=== PATIENT | male | born 1960 | race Caucasian/White ===

== ENCOUNTER 2018-01-16 16:24 | Emergency (ER) | payer MEDICARE, SELFPAY ==
[2018-01-16 16:28] VITALS: BP 137/63; PULSE 93; RESP 16; TEMP 36.9; O2SAT 95; BMI 37.3
--- NOTE | 2018-01-16 16:50 | ED.DCSUM_ITS ---
- ER Visit Summary Date of Service: 01/16/18 Chief Complaint: Acute seizure History of Present Illness: The patient is a 58 M. Prior traumatic brain injury and seizure disorder. Reportedly patient was in a wheelchair today assisted living and had a seizure. He states he feels great currently. He denies any headache, chest pain, shortness of breath abdominal pain. He denies any recent illness. He denies any fever, nausea, vomiting or diarrhea. Physical Examination: Well-appearing middle-age male. Vital signs are stable afebrile. Pulse is 95% room air no signs of positive. H EENT exam is unremarkable. Pupils round reactive light. Neck nontender no meningismus. Lungs clear to auscultation bilaterally. Heart regular rhythm no murmur. Chest nontender. Abdomen soft nontender. Normal bowel sounds no peritoneal signs. Pelvic girdle intact. He is moving all 4 extremities. 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 Back exam is nontender. Neurologically he knows what day it is she is following commands. He is answering questions. He has no focal motor deficits. Test Results: BMP unremarkable. Dilantin level is subtherapeutic at 5.8. Emergency Department Course and Treatment: Patient will be given 500 p.o. Dilantin and continue his normal Dilantin dosages at the assisted living facility were exact. Patient is doing well repeat exam at 1910. Treatment Plan: Charge back to assisted living. Continue current Dilantin dosage. Disposition: discharge Impression: Recurrent breakthrough seizure with a history of seizure disorder History of traumatic brain injury Subtherapeutic Dilantin level This note was generated with HALKAR dictation software. It may contain incorrect words, spelling, and punctuation that were not noted in review of the chart prior to signing ED Disposition - Plan for ED Patient: Chief Complaint: Seizure Referrals: NOT,DEFINED [NON-STAFF] -
--- NOTE | 2018-01-16 17:33 | NURSING ---
NO LW OR POA
[2018-01-16 18:34] LABS: Phenytoin (Dilantin) Level 5.8 mL (10.0-20.0)
[2018-01-16 18:39] LABS: Anion Gap 7 (5-15); BUN 11 mg/dL (7-18); BUN/Creat Ratio 15.3 RATIO (10-20); Calcium,Total 8.7 mg/dL (8.5-10.1); Chloride 113 mmol/L (98-107); Creatinine, Serum 0.72 mg/dL (0.70-1.30); EST Glomerular Filtration Rate 120 mL/min (>60); Est Glom Filt Rate - Afr Amer 145 mL/min (>60); Estimated Creatinine Clearance 129.47 ml/min; Glucose 185 mg/dL (74-106); Sodium Level 145 mmol/L (136-145)
--- NOTE | 2018-01-16 19:12 | ED.DEP ---
ED Disposition - Plan for ED Patient: Disposition: Home or Assisted Living Chief Complaint: Seizure Instructions: ED Seizure Recurrent Referrals: NOT,DEFINED [NON-STAFF] - As Needed Additional Instructions: Continue taking Dilantin as prescribed. Your Dilantin level is low today at 5.8. It needs to be between 10 and 20. We did give you 500 mg of Dilantin here today in the ER. You need to take your normal Dilantin dosages today and continue taking that as prescribed.
[2018-01-16] MEDS: Phenytoin Na 100 MG Capsule 500 MG PO (19:14)
[2018-01-16 19:20] VITALS: BP 149/76; PULSE 79; RESP 18; O2SAT 98
--- NOTE | 2018-01-16 19:21 | ED.RN ---
CALLED [facility] FROM [facility] TO GIVE PT RIDE BACK TO FACILITY
== END 2018-01-16 19:21 | disposition home or self-care (01) ==
PROVIDERS: Emergency Provider Emergency Medicine; Family Provider Nurse Practitioner Adult Health; PCP Nurse Practitioner Adult Health
DX: G40.909 Epilepsy, unspecified, not intractable, without status epilepticus (principal); R79.89 Other specified abnormal findings of blood chemistry; Z87.820 Personal history of traumatic brain injury
CPT/HCPCS: 80048; 80185; 99285; A4216

== ENCOUNTER 2018-01-28 11:16 | Observation (INO) | payer MEDICARE, SELFPAY ==
[2018-01-28] VITALS (7 sets, daily range): BP systolic 144–170; BP diastolic 76–88; PULSE 74–95; RESP 15–20; TEMP 36.7–36.8; O2SAT 94–96; BMI 38.0; BMI 37.0
--- NOTE | 2018-01-28 11:32 | CT_ITS ---
STUDY: CT BRAIN WITHOUT CONTRAST REASON FOR EXAM: Male, 58 years old. Trauma RADIATION DOSAGE (If Supplied By Facility): CTDIvol = ( 60.81 ) mGy, DLP = ( 2179.77 ) mGycm TECHNIQUE: Transaxial CT imaging of the brain was performed without administration of intravenous contrast material. Sagittal and coronal reconstructed images are provided and reviewed. Individualized dose optimization techniques were used for this CT. COMPARISON: None. FINDINGS: There is mild soft tissue swelling in the left frontal and posterior scalp. Postoperative changes of left temporal craniotomy are seen. Right-sided marline holes are present. Normal size ventricles and extra-axial spaces for the patient's age. Normal white matter tracts of the cerebral hemispheres. Normal basal ganglia and thalami. Normal brainstem. Normal cerebellum. There is no intracranial hemorrhage. There are no findings of an acute ischemic infarction. Normal visualized paranasal sinuses. CT/Brain/Head without Contrast IMPRESSION: Scalp contusion. Postoperative changes to the skull. No acute intracranial abnormality. Electronically Signed: Denton Quiroz DO at 13:10 EDT Tel , Service support ,
[2018-01-28 12:03] LABS: Absolute Lymphocyte Count 1.37 X10^3/ul (0.83-4.51); Absolute Neutrophil Count 2.4 X10^3/uL (2.0-7.7); Basophil# 0.02 X10^3/uL; Basophil% 0.5 % (0-1); Eosinophils% 2.3 % (0-5); Hematocrit 40.6 % (40-54); Hemoglobin 13.6 g/dl (13.0-16.5); Lymphocyte # 1.37 X10^3/ul (4.0); Lymphocyte % 32.1 % (19-41); Mean Corp Hgb Conc 33.5 g/gl (32-36); Mean Corpuscular Hgb 31.4 pg (27.0-32.0); Mean Corpuscular Volume 93.8 fL (80-94); Monocyte# 0.32 X10^3/uL; Monocyte% 7.5 % (0-10); Neutrophil # 2.44 X10^3/uL (2.7-7.7); Neutrophil % 57.1 % (47-70); POSITIVE COUNT NO; POSITIVE DIFFERENTIAL NO; POSITIVE MORPHOLOGY NO; Platelet Count 129 K/mm3 (150-450); RBC Distribution Width CV 13.4 % (11.6-14.6); RBC Distribution Width SD 44.4 fl (35.1-43.9); Red Blood Count 4.33 M/mm3 (4.6-6.2); White Blood Count 4.3 K/mm3 (4.4-11.0)
[2018-01-28] MEDS: 0.9% Normal Saline 1,000 ML 150 ML IV (12:11)
[2018-01-28 12:16] LABS: Anion Gap 11 (5-15); BUN 14 mg/dL (7-18); BUN/Creat Ratio 15.8 RATIO (10-20); Calcium,Total 8.8 mg/dL (8.5-10.1); Chloride 106 mmol/L (98-107); Creatinine, Serum 0.88 mg/dL (0.70-1.30); EST Glomerular Filtration Rate 95 mL/min (>60); Est Glom Filt Rate - Afr Amer 114 mL/min (>60); Estimated Creatinine Clearance 105.93 ml/min; Glucose 218 mg/dL (74-106); Potassium 3.8 mmol/L (3.5-5.1); Sodium Level 143 mmol/L (136-145)
[2018-01-28 12:51] LABS: Phenytoin (Dilantin) Level 45.8 mL (10.0-20.0)
--- NOTE | 2018-01-28 13:21 | ED.RN ---
PT DEMANDING TO LEAVE ED, MADE AWARE OF CRITICAL LAB LEVELS, PT VOICES UNDERSTANDING BUT STATES HE WILL LEAVE ANYWAY. STATES I CAN MAKE MY OWN DECISIONS. AND ADDITIONAL STAFF TO PT ROOM. MD DISCUSSED NEED FOR ADMISSION TO HOSPITAL, PT REFUSES. PT AGREES TO STAY UNTIL MD SPEAKS TO HIS PCP IF STAFF WILL ALLOW HIM OUTSIDE TO VAPE. PT PUT IN WHEELCHAIR, ASSISTED OUTSIDE BY MEDIC.
--- NOTE | 2018-01-28 13:37 | ED.DCSUM_ITS ---
- ER Visit Summary Date of Service: 01/28/18 Chief Complaint: Falls History of Present Illness: The patient is a 58 M who was sent in from [facility] assisted-living. Patient has a history of prior CVA with left- sided deficit, TBI, seizures, diabetes, hypertension, high cholesterol, COPD. Per the records patient has been sitting out the sun a lot for last several days. He lost his balance today and fell off a bench striking his right forehead. EMS reported that he had been drinking as well. He has reported had several falls in the last 12 hours. There is documentation of recent increased seizures and his Dilantin dose has been changed, although there is question as to whether it is been increased or decreased. In the room patient has no complaints. He denies loss of consciousness or members of the events of today. Physical Examination: Blood pressure is 170/88, temperature 98.1, heart rate 95 , respiratory rate 18, pulse ox 94% on room air. Patient sitting upright in bed no acute distress. He has a old scar over the scalp from prior brain surgery. He has no evidence of acute head injury. He has no C-spine tenderness. Heart is regular rate and rhythm. On lung sounds are clear. Abdomen is soft nontender. Extremity examination was abrasions to the right anterior knee without bony tenderness. He has sunburn noted to bilateral lower legs with chronic venous skin changes. Neuro exam reveals chronic left-sided weakness. Test Results: CT the head shows postoperative changes. No acute abnormality noted. CBC is significant only for platelet count of 129,000. Chemistry studies reveal glucose of 218. Dilantin level is supratherapeutic at 45.8. EtOH is 5. Emergency Department Course and Treatment: Patient initially insisted on leaving the hospital. On review of records his is listed as medical power of assistant city attorney if he is unable to make decisions, but he is alert and voices understanding. I explained to him that his Dilantin level is too high and this could lead to further seizures, decline, and . He voices understanding and states that he is leaving. When presented with AMA paperwork the patient refuses to sign it stating that he will lose his vouchers and wavers if he goes against the doctor's advice. He reluctantly will agree to be admitted. Patient is discussed with the hospitalist for admission. Treatment Plan: [] Disposition: Admit Impression: Dilantin Toxicity This note was generated with [employer] dictation software. It may contain incorrect words, spelling, and punctuation that were not noted in review of the chart prior to signing ED Disposition - Plan for ED Patient: Disposition: Acute [facility] Chief Complaint: Alt LOC
--- NOTE | 2018-01-28 13:39 | DCINST.ED_ITS ---
ED Disposition - Plan for ED Patient: Disposition: Home or Assisted Living Chief Complaint: Alt LOC Instructions: Phenytoin Referrals: Karma Barnes, EXTRUSION TECHNICIAN-C [Primary Care Provider] - Additional Instructions: Your Dilantin level is too high. This can lead to further seizures and . I have recommended hospitalization and you have refused. This was discussed with the nurse practioner caring for you.
--- NOTE | 2018-01-28 14:10 | ED.RN ---
PT SITTING OUTSIDE ED DOOR IN WHEELCHAIR WITH STAFF MEMBER. PT ADVISED AGAIN HE SHOULD BE ADMITTED TO HOSPITAL UNTIL DILANTIN LEVEL AT SAFE RANGE, ADVISED HIS PCP WANTED HIM TO STAY WELL. PT STATES HE JUST WANTS TO VAPE AND DOES NOT WANT TO COME INSIDE. PT ADVISED BY MD THAT HE COULD SIGN OUT AGAINST MEDICAL ADVICE, ADVISED OF DANGERS OF DOING SO. PT STATES HE WILL LOOSE HIS WAIVER IF HE DOESN'T FOLLOW MEDICAL ADVICE. AGREES TO COME INSIDE, RETURN TO BED.
--- NOTE | 2018-01-28 14:23 | EKG12_ITS ---
Test Reason : Blood Pressure : / mmHG Vent. Rate : 075 BPM Atrial Rate : 075 BPM P-R Int : 140 ms QRS Dur : 098 ms QT Int : 392 ms P-R-T Axes : 053 044 051 degrees QTc Int : 437 ms Normal sinus rhythm Normal ECG Confirmed by MORENA NELSON ([id number]), television news video editor RICHARD BARDALES ([id number]) on 02/08/2018 6:34:10 PM Referred By: LINSEY Confirmed By:MORENA NELSON
--- NOTE | 2018-01-28 14:35 | PCM.HP.STD ---
Problem List (1) Chronic back pain Status: Chronic (2) Hyperlipidemia Status: Chronic (3) Cognitive impairment Status: Chronic (4) Depression Status: Chronic (5) Seizure disorder Status: Chronic (6) Benign prostatic hyperplasia Status: Chronic (7) Traumatic brain injury Status: Chronic (8) COPD (chronic obstructive pulmonary disease) Status: Chronic (9) Hypertension Status: Chronic History of Present Illness Date of Admission: 01/28/18 Chief Complaint: Lethargy, sleepiness. The patient is a 58 year old M with multiple medical comorbidities as mentioned above was brought to the emergency department from assisted living because of lethargy and sleepiness. The patient has history of traumatic brain injury that was complicated by cognitive impairment as well as seizure disorder and is not able to provide detailed history. At this time, he mentioned that he feels fine and he wants to go home. He denies any complaints. Reportedly, patient had a history of seizure disorder and dose of Dilantin was increased recently because of recurrent seizure. Denied headache, blurred vision or slurred speech. He denied chest pain or shortness of breath. Denied abdominal pain, nausea vomiting. He has a history of traumatic brain injury status post brain surgery, complicated by cognitive impairment and seizure disorder. He history of seizure disorder secondary to traumatic brain injury and he has been on 3 different anticonvulsant medications. Recently, dose of Dilantin was increased because of recurrent seizure. He has a history of COPD and he has been on bronchodilators, never been on oxygen at home. He has a history of hypertension which seemed to be under control with Norvasc, lisinopril. He history of chronic back pain with placement of pain pump that has been not working for long time, currently on oxycodone for pain control. In the emergency department, his blood pressure slightly elevated, other vital signs were stable. He was alert and oriented ?3. His routine blood work is remarkable for very minimal leukopenia, mild thrombocytopenia and blood sugar of 218. There is no previous blood work to compare. His Dilantin level is 45.8. Blood alcohol level is 5. EKG revealed normal sinus rhythm, normal [place] interval, normal QRS and normal QTC, no evidence of cardiac arrhythmias or acute ischemic changes. CT scan brain revealed scalp contusion, no acute hemorrhage or infarction, postoperative changes. He is being admitted for observation for Dilantin toxicity. Past Medical History Past Medical History (Chronic Problems): Chronic Problems (Last Updated 01/26/18 @ 13:32 by Greer Barillas) Chronic back pain (Chronic) Hyperlipidemia (Chronic) Cognitive impairment (Chronic) Depression (Chronic) Seizure disorder (Chronic) Benign prostatic hyperplasia (Chronic) Traumatic brain injury (Chronic) COPD (chronic obstructive pulmonary disease) (Chronic) Hypertension (Chronic) Medical History: Medical History (Last Updated 01/26/18 @ 13:32 by Greer Barillas) BPH (benign prostatic hyperplasia) N40.0 COPD with acute exacerbation J44.1 PVD (peripheral vascular disease) I73.9 Back pain M54.9 COPD (chronic obstructive pulmonary disease) J44.9 Essential (primary) hypertension I10 HLD (hyperlipidemia) E78.5 Major depressive disorder F32.9 Memory impairment R41.3 Other seizures G40.89 Radiculopathy M54.10 Type 2 diabetes mellitus E11.9 Stroke I63.9 x4 TBI (traumatic brain injury) S06.9X9A left sided weakness Allergies No Known Allergies Allergy (Verified 01/28/18 11:23) Home Medications: Ambulatory Orders Medication Instructions Recorded amlodipine 5 mg tablet 5 mg PO DAILY 01/26/18 aripiprazole 15 mg tablet 15 mg PO DAILY 01/26/18 aspirin 81 mg tablet,delayed 81 mg PO DAILY 01/26/18 release atorvastatin 40 mg tablet 40 mg PO QHS 01/26/18 cholecalciferol (vitamin D3) 50,000 unit PO QWEEK 01/26/18 50,000 unit capsule docusate sodium 100 mg capsule 100 mg PO BID 01/26/18 fluticasone 250 mcg-salmeterol 50 1 inh INHALATION BID 01/26/18 mcg/dose blistr powdr for inhalation gabapentin 800 mg tablet 800 mg PO TID tab 01/26/18 ipratropium-albuterol 0.5 mg-3 3 ml INHALATION Q6H PRN 01/26/18 mg(2.5 mg base)/3 mL nebulization soln levetiracetam 500 mg tablet 2,000 mg PO HS tab 01/26/18 levetiracetam 750 mg tablet 1,500 mg PO QAM tab 01/26/18 lisinopril 10 mg tablet 10 mg PO QDAY 01/26/18 loratadine 10 mg tablet 10 mg PO QDAY 01/26/18 omeprazole 20 mg capsule,delayed 20 mg PO QDAY 01/26/18 release oxycodone 15 mg tablet 15 mg PO BID tab 01/26/18 oxycodone 5 mg capsule 5 mg PO Q6H PRN PRN cap 01/26/18 phenytoin sodium extended 100 mg 300 mg PO TID 01/26/18 capsule polyethylene glycol 3350 17 gram 17 g PO QDAY 01/26/18 oral powder packet tamsulosin 0.4 mg capsule 0.4 mg PO QDAY 01/26/18 topiramate 200 mg tablet 200 mg PO BID 01/26/18 trazodone 50 mg tablet 50 mg PO QDAY 01/26/18 venlafaxine ER 75 mg 75 mg PO BID cap 01/26/18 capsule,extended release 24 hr verapamil ER 120 mg 24 hr 120 mg PO QDAY 01/26/18 capsule,extended release zolpidem 10 mg tablet 10 mg PO QHS PRN 01/26/18 Melatonin/Pyridoxine HCl (B6) 3 mg PO QHS 01/28/18 [Melatonin 3 mg Tablet] Surgical History: Surgical History (Last Updated 01/26/18 @ 13:32 by Greer Barillas) H/O brain surgery Z98.890 History of appendectomy Z90.49 pain pump placement Surgical History: appendectomy, - - Brain surgery. Psychiatric History: Depression Lives: - - Assisted-living. Smoking Status: Former smoker Tobacco Use: Cigarettes, Vapor Alcohol: None Drugs: None - *Family History Maternal Family History: Family History (Last Updated 01/26/18 @ 13:32 by Greer Barillas) Mother Diabetes Hypertension History Items: No pertinent history Paternal Family History: Family History (Last Updated 01/26/18 @ 13:32 by Greer Barillas) Mother Diabetes Hypertension History Items: No pertinent history Review of Systems Constitutional: Denies: Anorexia, Chills, Fever, Weakness Eyes: Denies: Blurred vision, Double vision, Drainage, Redness HEENT: Denies: Difficulty Hearing, Ear Pain, Eye Pain, Nasal Congestion, Sore Throat Cardiovascular: Denies: Chest Pain, Chest Pressure, Chest Tightness, Heaviness, Palpitations, Syncope Respiratory: Denies: Cough, Pleuritic Pain, Shortness of Breath, Sputum production Gastrointestinal: Denies: Abdominal Pain, Constipation, Diarrhea, Nausea, Vomiting Genitourinary: Denies: Dysuria, Frequency, Hematuria Musculoskeletal: Reports: Back Pain. Denies: Arm Pain, Foot Pain Skin: Denies: Dryness, Rash Neurological: Denies: Balance problems, Double vision, Change in Speech, Slurred speech, Confusion, Headaches, Incoordination, Numbness Psychiatric: Reports: Depression. Denies: Anxiety Endocrine: Denies: Change in Body Habitus, Polydipsia VTE Information - Inpt Only VTE Present on Admission: No VTE Mechan Device Prophylaxis: None VTE Pharm Prophylaxis ordered?: Yes - Physical Exam General: Alert, Oriented x3, Cooperative, No apparent distress HEENT: PERRLA, EOMI Oral: Moist Mucosa, No Gingival or Mucosal Lesions/ Ulcerations Neck: Supple, No JVD, Negative Carotid Bruits, Trachea Midline, Thyroid Normal Size and Texture Lungs: Clear to auscultation, No rhonchi, No wheeze, No rales Cardiovascular: Regular rate, Regular Rhythm, Normal S1, Normal S2, No murmurs, PMI Normal Abdomen: Bowel Sounds Present, Soft, Non Tender, Non-Distended, No Hepato-splenomegaly, Obese Extremities: No clubbing, No cyanosis, Edema - Nonpitting edema, stasis dermatitis, scaling. Skin: No rashes, No breakdown Lymphatic: No Cervical, Supraclavicular, or Inguinal Adenopathy Neurological: Cranial nerves II-XII grossly intact, Neuro grossly intact Psych/Mental Status: Normal Affect, Appropriate, Alert and oriented to time, place, person, mood and affect Vital Signs Temp Pulse Resp BP Pulse Ox 98.1 F 78 19 H 144/76 H 95 01/28/18 11:17 01/28/18 14:17 01/28/18 14:17 01/28/18 14:13 01/28/18 14:17 Oxygen Delivery Method Room Air Laboratory Tests 01/28/18 01/28/18 01/28/18 Range/Units 11:55 11:55 11:55 WBC (4.4-11.0) K/mm3 RBC (4.6-6.2) M/mm3 Hgb (13.0-16.5) g/dl Hct (40-54) % MCV (80-94) fL MCH (27.0-32.0) pg MCHC (32-36) g/gl RDW (11.6-14.6) % RDW Differential (35.1-43.9) fl Plt Count (150-450) K/mm3 MPV (6.2-12.0) fl Immature Gran % (Auto) (0.0-0.9) % Neut % (Auto) (47-70) % Lymph % (Auto) (19-41) % [place] % (Auto) (0-10) % Eos % (Auto) (0-5) % Baso % (Auto) (0-1) % Absolute Neuts (auto) (2.0-7.7) X10^3/uL Absolute Lymphs (auto) (0.83-4.51) X10^3/ul Total Counted Sodium 143 (136-145) mmol/L Potassium 3.8 (3.5-5.1) mmol/L Chloride 106 (98-107) mmol/L Carbon Dioxide 26.0 (21.0-32.0) mmol/L Anion Gap 11 (5-15) BUN 14 (7-18) mg/dL Creatinine 0.88 (0.70-1.30) mg/dL Estim Creat Clear Calc 105.93 ml/min Est GFR (MDRD) Af Amer 114 (>60) mL/min Est GFR (MDRD) Non-Af 95 (>60) mL/min BUN/Creatinine Ratio 15.8 (10-20) RATIO Glucose 218 H (74-106) mg/dL Calcium 8.8 (8.5-10.1) mg/dL Phenytoin 45.8 H* (10.0-20.0) mL Ethyl Alcohol 5.0 mg/dL 01/28/18 Range/Units 11:55 WBC 4.3 L (4.4-11.0) K/mm3 RBC 4.33 L (4.6-6.2) M/mm3 Hgb 13.6 (13.0-16.5) g/dl Hct 40.6 (40-54) % MCV 93.8 (80-94) fL MCH 31.4 (27.0-32.0) pg MCHC 33.5 (32-36) g/gl RDW 13.4 (11.6-14.6) % RDW Differential 44.4 H (35.1-43.9) fl Plt Count 129 L (150-450) K/mm3 MPV 10.0 (6.2-12.0) fl Immature Gran % (Auto) 0.500 (0.0-0.9) % Neut % (Auto) 57.1 (47-70) % Lymph % (Auto) 32.1 (19-41) % [place] % (Auto) 7.5 (0-10) % Eos % (Auto) 2.3 (0-5) % Baso % (Auto) 0.5 (0-1) % Absolute Neuts (auto) 2.4 (2.0-7.7) X10^3/uL Absolute Lymphs (auto) 1.37 (0.83-4.51) X10^3/ul Total Counted Not Reportable Sodium (136-145) mmol/L Potassium (3.5-5.1) mmol/L Chloride (98-107) mmol/L Carbon Dioxide (21.0-32.0) mmol/L Anion Gap (5-15) BUN (7-18) mg/dL Creatinine (0.70-1.30) mg/dL Estim Creat Clear Calc ml/min Est GFR (MDRD) Af Amer (>60) mL/min Est GFR (MDRD) Non-Af (>60) mL/min BUN/Creatinine Ratio (10-20) RATIO Glucose (74-106) mg/dL Calcium (8.5-10.1) mg/dL Phenytoin (10.0-20.0) mL Ethyl Alcohol mg/dL Clinical Impression(s) from Imaging Studies Brain CT 01/28/18 11:32 IMPRESSION: Scalp contusion. Postoperative changes to the skull. No acute intracranial abnormality. Electronically Signed: Denton Quiroz DO at 13:10 EDT Tel , Service support , Assessment/Plan This is a 58 year-old male patient presented to the medicine because of lethargy and sleepiness, found to have highly elevated Dilantin level consistent with Dilantin toxicity. #1 Dilantin toxicity: Patient has been on Dilantin for seizure disorder, dose increased recently because of recurrent seizure. This can brain without acute hemorrhage or infarction, revealed scalp contusion. Dilantin level is more than 45. EKG revealed normal sinus rhythm, normal intervals, no evidence of cardiac arrhythmias. Blood pressure slightly elevated, other vital signs were stable. Plan: Admit to PCU for observation, cardiac monitoring, IV fluids, repeat Dilantin level tomorrow morning, LFT, repeat CBC and CMP tomorrow morning, hold Dilantin, seizure precautions, PT OT evaluation and treatment. #2 hyperglycemia: Patient mentioned that he was told he does have diabetes but he is not taking any medication for. His glucose is 218. Plan: Accu-Cheks, sliding scale, check hemoglobin A1c. #3 COPD: Clinically stable, maintaining pulse ox on room air. Plan for DuoNeb every 6 hours, albuterol as needed, continue Advair. #4 hypertension: Blood pressure slightly elevated, continue home medications. #5 seizure disorder: Continue Keppra and topiramate, hold Dilantin as above, repeat Dilantin level tomorrow morning. #6 traumatic brain injury/cognitive impairment: CT scan brain with scalp contusion, no acute findings. #7 benign prostatic hypertrophy: Continue Flomax. #8 depression: Continue trazodone and venlafaxine. #9 chronic back pain: Continue oxycodone twice daily and as needed. #10 DVT prophylaxis: Subcu Lovenox. This note was generated with [employer] dictation software. It may contain incorrect words, spelling, and punctuation that were not noted in checking the note before signing. Code Visit OBSV E&M: [id number] Initial observation care L3
[2018-01-28 16:00] LABS: AST(SGOT) 19 U/L (15-37); Alanine Aminotransfer ALT/SGPT 30 U/L (16-61); Alkaline Phosphatase 145 U/L (45-117); Bilirubin, Direct 0.05 mg/dL (0.00-0.30); Globulin 3.7 g/dL (2.2-4.2); Protein, Total 7.7 g/dL (6.4-8.2)
--- NOTE | 2018-01-28 16:11 | CHAPLAIN ---
Type of Pastoral Visit _x__ Initial Visit ___ Follow-up Visit ___ On-call Visit ___ General Patient Visit ___ Spiritual Assessment ___ Family Conference ___ Bereavement ___ Rapid Response ___ Code Blue ___ Other (describe below) Pastoral Care Referral From _x__ Patient ___ Family ___ Nurse ___ Physician ___ Pancake Professional ___ Capacity Planning Engineer _x__ Other (describe below) Sacrament/Intervention _x__ Active listening ___ Anointing ___ Latter Day ___ Bereavement ___ Communion ___ Komal exploration ___ ___ Life review _x__ Prayer ___ Reconciliation ___ Sacrament of Sick _x__ Supportive presence ___ Wedding ___ Other (describe below) Pastoral Comments walked into room as lab is attempting to draw blood from patient and also found his director counseling bureau from [place] is in room; director counseling bureau describes hearing loss issues of patient and that his mental status is not his normal; pt is pleasant to this acid wash operator as I assure him that we all want him to feel better; when asked patient about the reason for being admitted he did not immediately answer; director counseling bureau began the answer and pt followed story about falling; pt talks about wanting drink and or food; told both about how to order from menu; pt says to director counseling bureau that he will go outside to vape later; director counseling bureau discusses with pt the need to stay in bed and not go outside; director counseling bureau says she will bring pt gum, snacks, etc so he can focus on that instead of vape; offer of further support to patient today or tomorrow; patient welcomed a prayer and said Amen; director counseling bureau said thank you
[2018-01-28 16:16] LABS: Bedside Glucose 155 mg/dL (70-110)
[2018-01-28] MEDS: 0.9% Normal Saline 1,000 ML 75 ML IV (16:29)
[2018-01-28 20:33] LABS: Hemoglobin A1c 7.7 % (4.2-6.3)
--- NOTE | 2018-01-28 23:30 | NURSING ---
Pt refusing to wear telemetry, taking off, not allowing RN to place back on.
[2018-01-28] MEDS: Gabapentin 800 MG Tablet PO (23:50)
[2018-01-28] MEDS: Docusate Sodium 100 MG Capsule PO (23:50)
[2018-01-28] MEDS: levETIRAcetam 1,000 MG Tablet 2000 MG PO (23:50)
[2018-01-28] MEDS: Venlafaxine HCl 75 MG Tablet PO (23:51)
[2018-01-28] MEDS: Atorvastatin Calcium 40 MG Tablet PO (23:51)
[2018-01-28] MEDS: Topiramate 200 MG Tablet PO (23:51)
[2018-01-28] MEDS: traZODone 50 MG Tablet PO (23:51)
[2018-01-28] MEDS: Zolpidem Tartrate 5 MG Tablet 10 MG PO (23:52)
[2018-01-28] MEDS: MELATONIN 3 MG TABLET PO (23:52)
[2018-01-29] VITALS: BP 142/70; PULSE 75; RESP 16; TEMP 37; O2SAT 95
[2018-01-29 00:01] LABS: Bedside Glucose 142 mg/dL (70-110)
[2018-01-29 06:34] VITALS: BP 141/79; PULSE 73; RESP 16; TEMP 36.9; O2SAT 95
[2018-01-29] MEDS: Enoxaparin 40 MG/0.4 ML Syringe SC (06:41)
[2018-01-29] MEDS: Gabapentin 800 MG Tablet PO ×2 (06:42→13:32)
[2018-01-29 06:55] LABS: Bedside Glucose 134 mg/dL (70-110)
[2018-01-29 06:57] LABS: Absolute Lymphocyte Count 1.82 X10^3/ul (0.83-4.51); Absolute Neutrophil Count 2.7 X10^3/uL (2.0-7.7); Basophil# 0.02 X10^3/uL; Basophil% 0.4 % (0-1); Eosinophil# 0.12 X10^3/uL; Eosinophils% 2.4 % (0-5); Hemoglobin 12.8 g/dl (13.0-16.5); Lymphocyte # 1.82 X10^3/ul (4.0); Lymphocyte % 36.7 % (19-41); Mean Corp Hgb Conc 32.8 g/gl (32-36); Mean Corpuscular Hgb 30.7 pg (27.0-32.0); Mean Corpuscular Volume 93.5 fL (80-94); Mean Platelet Vol. 9.9 fl (6.2-12.0); Monocyte# 0.33 X10^3/uL; Monocyte% 6.7 % (0-10); Neutrophil # 2.67 X10^3/uL (2.7-7.7); Neutrophil % 53.8 % (47-70); Platelet Count 126 K/mm3 (150-450); RBC Distribution Width CV 13.5 % (11.6-14.6); RBC Distribution Width SD 45.9 fl (35.1-43.9); Red Blood Count 4.17 M/mm3 (4.6-6.2)
[2018-01-29 06:59] LABS: POSITIVE COUNT NO; POSITIVE DIFFERENTIAL NO; POSITIVE MORPHOLOGY NO
[2018-01-29 07:32] LABS: ALB/GLOB Ratio 1.1 RATIO (0.9-2.4); AST(SGOT) 15 U/L (15-37); Alanine Aminotransfer ALT/SGPT 26 U/L (16-61); Albumin, Serum 3.6 g/dL (3.2-5.0); Alkaline Phosphatase 119 U/L (45-117); Anion Gap 8 (5-15); BUN 11 mg/dL (7-18); BUN/Creat Ratio 15.6 RATIO (10-20); Calcium,Total 8.1 mg/dL (8.5-10.1); Chloride 110 mmol/L (98-107); Creatinine, Serum 0.71 mg/dL (0.70-1.30); EST Glomerular Filtration Rate 123 mL/min (>60); Est Glom Filt Rate - Afr Amer 148 mL/min (>60); Estimated Creatinine Clearance 131.29 ml/min; Globulin 3.3 g/dL (2.2-4.2); Glucose 144 mg/dL (74-106); Potassium 3.8 mmol/L (3.5-5.1); Protein, Total 6.9 g/dL (6.4-8.2); Sodium Level 144 mmol/L (136-145)
[2018-01-29] MEDS: Aspirin E.C. 81 MG Tablet PO (08:37)
[2018-01-29] MEDS: oxyCODONE 5 MG Tablet PO (08:37)
[2018-01-29 10:30] VITALS: BP 163/70; PULSE 86; RESP 14; TEMP 36.5; O2SAT 98
[2018-01-29] MEDS: Docusate Sodium 100 MG Capsule PO (10:33)
[2018-01-29] MEDS: Pantoprazole Sodium 20 MG Tablet PO (10:33)
[2018-01-29] MEDS: Tamsulosin HCl 0.4 MG Capsule PO (10:33)
[2018-01-29] MEDS: Venlafaxine HCl 75 MG Tablet PO (10:33)
[2018-01-29] MEDS: levETIRAcetam 750 MG Tablet 1500 MG PO (10:34)
[2018-01-29] MEDS: Lisinopril 10 MG Tablet PO (10:34)
[2018-01-29] MEDS: Topiramate 200 MG Tablet PO (10:34)
[2018-01-29] MEDS: Verapamil SR 240 MG Tablet 120 MG PO (10:34)
[2018-01-29] MEDS: amLODIPine 5 MG Tablet PO (10:34)
[2018-01-29] MEDS: ARIPiprazole 10 MG Tablet 15 MG PO (10:35)
[2018-01-29] MEDS: Loratadine 10 MG Tablet PO (10:35)
[2018-01-29 11:20] LABS: Bedside Glucose 170 mg/dL (70-110)
--- NOTE | 2018-01-29 11:34 | CASEMGMT ---
[facility]
--- NOTE | 2018-01-29 12:08 | CASEMGMT ---
LAURA received a call from RN at [facility] and as long as patient can get to the bathroom on his own he can return. LAURA obtained weekend fax and phone numbers for orders. (phone: [phone] and fax: [phone]) She said patient is normally his own decision maker. He has a that lives in [place]. He will need transportation back to [facility] at d/c. LAURA will put ambulette form on chart as well as green sheet with instructions. Plan: Return to [facility] ADEBAYO GARCIA MSW
--- NOTE | 2018-01-29 13:47 | CHAPLAIN ---
Type of Pastoral Visit ___ Initial Visit _x__ Follow-up Visit ___ On-call Visit ___ General Patient Visit ___ Spiritual Assessment ___ Family Conference ___ Bereavement ___ Rapid Response ___ Code Blue ___ Other (describe below) Pastoral Care Referral From ___ Patient ___ Family _x__ Nurse ___ Physician ___ Critical Care Educator ___ Shipping Packer ___ Other (describe below) Sacrament/Intervention ___ Active listening ___ Anointing ___ Presybeterian ___ Bereavement ___ Communion ___ Komal exploration ___ ___ Life review ___ Prayer ___ Reconciliation ___ Sacrament of Sick _x__ Supportive presence ___ Wedding _x__ Other (describe below) Pastoral Comments RN requested this washer assembler to offer patient opportunity to talk with the purpose of 'getting his mind off of leaving and instead agreeing to wait for test results'; pt was met yesterday at admission and had altered mental status; pt was sitting on bedside with meal tray at end of bed; suggested patient try to eat lunch and he refused; attempted conversation and pt repeated 3 times that I do not want to talk, I want to leave, I do not want to talk to you; I encouraged pt to stay for a few more hours before he left and then I left the room; I waited for a few minutes outside of door; pt then unhooked his IV pump from wall and started to walk out of room; I stood at doorway and requested help from RN; the historic site administrator came to talk patient back into his room; pt complied but then in a few minutes attempted to leave again; at this point CORE MANAGER called security who came to talk with patient
--- NOTE | 2018-01-29 13:49 | NURSING ---
spoke with Hope- she will come bean picker machine operator patient when ready
[2018-01-29 14:48] LABS: Phenytoin (Dilantin) Level 39.4 mL (10.0-20.0)
[2018-01-29 14:49] VITALS: BP 158/70; PULSE 81; RESP 15; TEMP 36.6; O2SAT 100
--- NOTE | 2018-01-29 15:10 | PCM.DC ---
You will use the following diet at home:: Regular Discharge Activity: Return to Normal Activity Instructions: Phenytoin Allergies/Adverse Reactions: Allergies No Known Allergies Allergy (Verified 01/28/18 11:23) Medications to take at Discharge amlodipine 5 mg tablet 5 mg PO DAILY 01/26/18 aripiprazole 15 mg tablet 15 mg PO DAILY 01/26/18 aspirin 81 mg tablet,delayed release 81 mg PO DAILY 01/26/18 atorvastatin 40 mg tablet 40 mg PO QHS 01/26/18 cholecalciferol (vitamin D3) 50,000 unit capsule 50,000 unit PO QWEEK 01/26/18 docusate sodium 100 mg capsule 100 mg PO BID 01/26/18 fluticasone 250 mcg-salmeterol 50 mcg/dose blistr powdr for inhalation 1 inh INHALATION BID 01/26/18 gabapentin 800 mg tablet 800 mg PO TID tab 01/26/18 ipratropium-albuterol 0.5 mg-3 mg(2.5 mg base)/3 mL nebulization soln 3 ml INHALATION Q6H PRN 01/26/18 levetiracetam 500 mg tablet 2,000 mg PO HS tab 01/26/18 levetiracetam 750 mg tablet 1,500 mg PO DAILY tab 01/26/18 lisinopril 10 mg tablet 10 mg PO DAILY 01/26/18 loratadine 10 mg tablet 10 mg PO DAILY 01/26/18 omeprazole 20 mg capsule,delayed release 20 mg PO DAILY 01/26/18 oxycodone 15 mg tablet 15 mg PO BID tab 01/26/18 oxycodone 5 mg capsule 5 mg PO Q6H PRN PRN cap 01/26/18 tamsulosin 0.4 mg capsule 0.4 mg PO DAILY 01/26/18 topiramate 200 mg tablet 200 mg PO BID 01/26/18 trazodone 50 mg tablet 50 mg PO QHS 01/26/18 venlafaxine ER 75 mg capsule,extended release 24 hr 75 mg PO BID cap 01/26/18 verapamil ER 120 mg 24 hr capsule,extended release 120 mg PO QDAY 01/26/18 zolpidem 10 mg tablet 10 mg PO QHS PRN 01/26/18 Melatonin/Pyridoxine HCl (B6) [Melatonin 3 mg Tablet] 3 mg PO QHS 01/28/18 Primary Care Physician: Karma Barnes, PETROL TANKER DRIVER-C [Primary Care Provider] - In 1 Week Proposed Discharge Date: 01/29/18
--- NOTE | 2018-01-29 15:12 | PCM.DC.SUM ---
Discharge Date and Diagnosis Date of Admission: 01/28/18 Date of Discharge: 01/29/18 - Secondary Discharge Diagnosis Chronic Problems (Last Updated 01/26/18 @ 13:32 by Greer Barillas) Chronic back pain (Chronic) Hyperlipidemia (Chronic) Cognitive impairment (Chronic) Depression (Chronic) Seizure disorder (Chronic) Benign prostatic hyperplasia (Chronic) Traumatic brain injury (Chronic) COPD (chronic obstructive pulmonary disease) (Chronic) Hypertension (Chronic) Hospital Course and Treatment Summary of Care Provided: This is a 58-year-old male with history of TBI, CVA with left-sided deficit, seizure disorder diabetes 2, hypertension who presented to the emergency room through the EMS due to increasing falls in the last 12 hours prior to his admission. Workup in the emergency room revealed an elevated Dilantin level of 45.8, blood have any acute any EKG changes , he was admitted to the hospital for monitoring. Placed on intravenous fluids with 0.9 normal saline and we did hold his Dilantin. Dilantin level dropped to 42.0, he insisted on being discharged, after explaining that he could not be discharged the patient became increasingly agitated and aggressive towards nursing staff as he does not want to stay in the hospital. He even attempted to leave the hospital and they had to call the security. Repeat Dilantin level is 39.4. He shows no signs of toxicity and we will therefore discharge him home, he will continue to hold the Dilantin and follow-up with the primary care doctor next week who will ultimately restart on a decrease Dilantin dose when his levels are in the therapeutic range. T Discharge Diet: No Restrictions Discharge Activity: Return to Normal Activity Home Medications: Medications to take at Discharge amlodipine 5 mg tablet 5 mg PO DAILY 01/26/18 aripiprazole 15 mg tablet 15 mg PO DAILY 01/26/18 aspirin 81 mg tablet,delayed release 81 mg PO DAILY 01/26/18 atorvastatin 40 mg tablet 40 mg PO QHS 01/26/18 cholecalciferol (vitamin D3) 50,000 unit capsule 50,000 unit PO QWEEK 01/26/18 docusate sodium 100 mg capsule 100 mg PO BID 01/26/18 fluticasone 250 mcg-salmeterol 50 mcg/dose blistr powdr for inhalation 1 inh INHALATION BID 01/26/18 gabapentin 800 mg tablet 800 mg PO TID tab 01/26/18 ipratropium-albuterol 0.5 mg-3 mg(2.5 mg base)/3 mL nebulization soln 3 ml INHALATION Q6H PRN 01/26/18 levetiracetam 500 mg tablet 2,000 mg PO HS tab 01/26/18 levetiracetam 750 mg tablet 1,500 mg PO DAILY tab 01/26/18 lisinopril 10 mg tablet 10 mg PO DAILY 01/26/18 loratadine 10 mg tablet 10 mg PO DAILY 01/26/18 omeprazole 20 mg capsule,delayed release 20 mg PO DAILY 01/26/18 oxycodone 15 mg tablet 15 mg PO BID tab 01/26/18 oxycodone 5 mg capsule 5 mg PO Q6H PRN PRN cap 01/26/18 tamsulosin 0.4 mg capsule 0.4 mg PO DAILY 01/26/18 topiramate 200 mg tablet 200 mg PO BID 01/26/18 trazodone 50 mg tablet 50 mg PO QHS 01/26/18 venlafaxine ER 75 mg capsule,extended release 24 hr 75 mg PO BID cap 01/26/18 verapamil ER 120 mg 24 hr capsule,extended release 120 mg PO QDAY 01/26/18 zolpidem 10 mg tablet 10 mg PO QHS PRN 01/26/18 Melatonin/Pyridoxine HCl (B6) [Melatonin 3 mg Tablet] 3 mg PO QHS 01/28/18 Primary Care Physician: Karma Barnes NP-C [Primary Care Provider] - In 1 Week Patient Instructions: Phenytoin Disposition: Home Patient Condition:: Good Medical Necessity - Tobacco Use Smoking Status: Former smoker Tobacco Use: Cigarettes, Vapor Meaningful Use Info Meaningful Use Diagnoses (Choose all that apply): None applicable Code Visit OBSV E&M: 75432 Observation care discharge
--- NOTE | 2018-01-29 15:48 | NURSING ---
called report to Ofelia Virk LPN at [facility] she is the recieving nurse taking care of patient. Reviewed all meds and stop dilantin get lab on thursday and f/u pcp on dosing . Stressed need for patient to use walker for safety.
--- NOTE | 2018-01-29 16:09 | NURSING ---
Hope called to let staff know patient ride was on their way. Patient anxious was up at nursing station wanting to leave nurse able to get patient back to room. Strong direction given to patient reviewed instructions with patient also as nurse did with administrator pesticide at [facility] . Person just arrived reviewed instructions with administrator pesticide patients vape returned patient left via wc
--- NOTE | 2018-01-29 16:19 | CASEMGMT ---
Patient was d/c back to [facility]. Patient's bedside RN spoke with Rufina, Deputy Director Of Public Works at [facility] and she will supplier specialist patient. Amy GARCIA MSW
== END 2018-01-29 16:20 | disposition home or self-care (01) ==
LOC: ED 13:38 → PCU 14:18
PROVIDERS: Admitting Provider Hospitalist; Emergency Provider Emergency Medicine; Family Provider Nurse Practitioner Adult Health; PCP Nurse Practitioner Adult Health; Visit Provider Internal Medicine
DX: T42.0X5A Adverse effect of hydantoin derivatives, initial encounter (principal); Y92.89 Other specified places as the place of occurrence of the external cause; I69.354 Hemiplegia and hemiparesis following cerebral infarction affecting left non-dominant side; G40.909 Epilepsy, unspecified, not intractable, without status epilepticus; I10 Essential (primary) hypertension; E78.00 Pure hypercholesterolemia, unspecified; J44.9 Chronic obstructive pulmonary disease, unspecified; Z91.81 History of falling; S80.211A Abrasion, right knee, initial encounter; W18.39XA Other fall on same level, initial encounter; G89.29 Other chronic pain; M54.9 Dorsalgia, unspecified; G31.84 Mild cognitive impairment of uncertain or unknown etiology; F32.9 Major depressive disorder, single episode, unspecified; N40.0 Benign prostatic hyperplasia without lower urinary tract symptoms; Z87.820 Personal history of traumatic brain injury; I73.9 Peripheral vascular disease, unspecified; R41.3 Other amnesia; M54.10 Radiculopathy, site unspecified; E11.51 Type 2 diabetes mellitus with diabetic peripheral angiopathy without gangrene; E11.65 Type 2 diabetes mellitus with hyperglycemia; Z79.899 Other long term (current) drug therapy; Z79.82 Long term (current) use of aspirin; Z87.891 Personal history of nicotine dependence
CPT/HCPCS: 36415; 70450; 80048; 80053; 80076; 80185; 80320; 82962; 83036; 85025; 93005; 96360; 96361; 97162; 97166; 99218; 99285; J7030; A4216; G0378; G0480

== ENCOUNTER 2018-01-30 15:29 | Observation (INO) | payer MEDICARE, SELFPAY ==
[2018-01-30] VITALS (7 sets, daily range): BP systolic 162–193; BP diastolic 71–96; PULSE 86–94; RESP 14–20; TEMP 36.7–36.8; O2SAT 97–99; BMI 36.4; BMI 36.7; BMI 36.8
--- NOTE | 2018-01-30 15:47 | EKG12_ITS ---
Test Reason : ILLNESS Blood Pressure : / mmHG Vent. Rate : 086 BPM Atrial Rate : 086 BPM P-R Int : 128 ms QRS Dur : 094 ms QT Int : 384 ms P-R-T Axes : -11 028 035 degrees QTc Int : 459 ms Normal sinus rhythm Normal ECG Confirmed by ELLIS LOCKHART, LORIE ([id number]), editor in chief newspaper RICHARD BARDALES ([id number]) on 02/10/2018 6:45:11 PM Referred By: JOCELYN Confirmed By:LORIE CORRAL MD
--- NOTE | 2018-01-30 15:47 | CT_ITS ---
STUDY: CT BRAIN WITHOUT CONTRAST REASON FOR EXAM: Male, 58 years old. Alteration of awareness RADIATION DOSAGE (If Supplied By Facility): CTDIvol = ( 44.99 ) mGy, DLP = ( 829.85 ) mGycm TECHNIQUE: Transaxial CT imaging of the brain was performed without administration of intravenous contrast material. Individualized dose optimization techniques were used for this CT. COMPARISON: January 28, 2018 FINDINGS: A scalp hematoma is again seen in the left parietal region. Surgical changes are again seen in the skull bilaterally. Normal size ventricles and extra-axial spaces for the patient's age. The white matter tracts are unremarkable. The basal ganglia and thalami are unremarkable. No abnormalities are seen in the brainstem. The cerebellum is unremarkable. There is no intracranial hemorrhage. There are no findings of acute ischemia. The visualized sinuses are unremarkable. CT/Brain/Head without Contrast IMPRESSION: No acute intracranial abnormalities or changes. Electronically Signed: Maria Esther Rodrigez MD at 17:15 EDT Tel Direct: [phone], Service support ,
--- NOTE | 2018-01-30 16:09 | ED.RN ---
NO OLD EKG
[2018-01-30 16:31] LABS: Absolute Lymphocyte Count 1.49 X10^3/ul (0.83-4.51); Absolute Neutrophil Count 2.1 X10^3/uL (2.0-7.7); Basophil# 0.02 X10^3/uL; Basophil% 0.5 % (0-1); Eosinophil# 0.07 X10^3/uL; Eosinophils% 1.7 % (0-5); Hematocrit 42.2 % (40-54); Hemoglobin 13.9 g/dl (13.0-16.5); Lymphocyte # 1.49 X10^3/ul (4.0); Lymphocyte % 37.2 % (19-41); Mean Corp Hgb Conc 32.9 g/gl (32-36); Mean Corpuscular Hgb 30.5 pg (27.0-32.0); Mean Corpuscular Volume 92.7 fL (80-94); Mean Platelet Vol. 10.1 fl (6.2-12.0); Monocyte# 0.34 X10^3/uL; Monocyte% 8.5 % (0-10); Neutrophil # 2.09 X10^3/uL (2.7-7.7); Neutrophil % 52.1 % (47-70); Platelet Count 134 K/mm3 (150-450); RBC Distribution Width CV 13.5 % (11.6-14.6); RBC Distribution Width SD 45.4 fl (35.1-43.9); Red Blood Count 4.55 M/mm3 (4.6-6.2)
[2018-01-30 16:33] LABS: POSITIVE COUNT NO; POSITIVE DIFFERENTIAL NO; POSITIVE MORPHOLOGY NO
--- NOTE | 2018-01-30 16:35 | RAD_ITS ---
STUDY: X-RAY CHEST REASON FOR EXAM: Male, 58 years old. Alteration of awareness TECHNIQUE: A single frontal view of the chest was obtained. COMPARISON: None. FINDINGS: The lungs are underaerated. There are no focal airspace opacities. There is no demonstrated pleural abnormality. The cardiac silhouette is normal in size. The mediastinum and hilar regions are unremarkable. Normal visualized pulmonary arteries. Normal visualized aortic arch and descending thoracic aorta. There are diffuse degenerative changes of the visualized spine. There are degenerative changes in both shoulders. There is no demonstrated abnormality of the visualized upper abdomen. RAD/Chest 1 View (Portable) IMPRESSION: No acute cardiopulmonary abnormalities. Electronically Signed: Maria Esther Rodrigez MD at 17:16 EDT Tel Direct: [phone], Service support ,
[2018-01-30 16:48] LABS: AST(SGOT) 29 U/L (15-37); Alanine Aminotransfer ALT/SGPT 32 U/L (16-61); Albumin, Serum 4.1 g/dL (3.2-5.0); Alkaline Phosphatase 160 U/L (45-117); Anion Gap 7 (5-15); BUN 8 mg/dL (7-18); BUN/Creat Ratio 8.3 RATIO (10-20); Calcium,Total 8.3 mg/dL (8.5-10.1); Chloride 110 mmol/L (98-107); Creatinine, Serum 0.96 mg/dL (0.70-1.30); EST Glomerular Filtration Rate 86 mL/min (>60); Est Glom Filt Rate - Afr Amer 104 mL/min (>60); Glucose 131 mg/dL (74-106); Potassium 3.6 mmol/L (3.5-5.1); Protein, Total 8.1 g/dL (6.4-8.2); Sodium Level 143 mmol/L (136-145)
[2018-01-30 17:11] LABS: Phenytoin (Dilantin) Level 39.6 mL (10.0-20.0)
[2018-01-30 17:23] LABS: Bacteria 0 SEEN /hpf (None Seen); Mucous, Urine 0 SEEN /hpf (<or=2+); Red Blood Cells-Urine 0 SEEN /hpf (0-5); White Blood Cells 0 SEEN /hpf (0-5)
[2018-01-30 17:25] LABS: Color, Urine Yellow (Yellow); Glucose, Dipstick 100 mg/dl (Normal); Ketone-Dipstick Negative (Negative); Leukocyte Esterase-Dipstick Negative /ul (Negative); Nitrite-Dipstick Negative (Negative); Occult Blood-Urine Negative /ul (Negative); Protein-Dipstick Negative (Negative); Urine Bilirubin Dipstick Negative (Negative); Urine Clarity Sl. Cloudy (Clear); Urine Urobilinogen Normal (Normal)
[2018-01-30 17:26] LABS: Allen Test POS; Base Excess -4 mmol/L (-2 to +2); Bicarbonate 20.2 mmol/L (22-26); Blood Gas Specimen Type ART; O2 Delivery Device Room Air; PO2 84 mmHG (75-100); SITE R Radial; SO2 97 % (95-99); Time Given 1715; Total Carbon Dioxide 21 mmol/L; pCO2 30.6 mmHg (35-45); pH 7.43 (7.35-7.45)
[2018-01-30 17:34] LABS: Squamous Epithelial Cells - UA 0-5 SEEN /hpf (0-5)
--- NOTE | 2018-01-30 17:47 | ED.RN ---
[facility] NURSE CELL [phone]
--- NOTE | 2018-01-30 18:20 | ED.DCSUM_ITS ---
- ER Visit Summary Date of Service: 01/30/18 Chief Complaint: Double vision and altered mental status History of Present Illness: The patient is a 58 M who presents with double vision. Initially the patient was quite somnolent and difficult to arouse. He is slowly became more alert as he spoke to me. He was recently admitted for Dilantin toxicity but left AGAINST MEDICAL ADVICE yesterday. He states I was on the sidewalk leaned over in my wheelchair sleeping. States that his double vision currently is resolved but it lasted several hours most of the morning. He also complains of chronic neck and back pain. He does have a history of traumatic brain injury and a seizure disorder. Physical Examination: Afebrile vitals are stable he is hypertensive with a blood pressure 177/81 Moist mucous membranes Heart regular rate and rhythm Lungs are clear Abdomen soft Initially somnolent and somewhat difficult to arouse however as he spoke to me he became much more alert he is oriented to person place and time with a GCS of 15 He has no focal or lateralizing neurological deficits Normal affect Test Results: EKG shows normal sinus rhythm at rate of 86. Chest x-ray shows no acute process. CT the head shows no acute process. Labs are notable for Dilantin level of 39.6. ABG normal. Emergency Department Course and Treatment: She was initially difficult to arouse and confused. His mental status did improve. On reevaluation he is alert and oriented ?3 and answers all questions appropriately. He does not want to stay. He was advised that he would need to sign out AGAINST MEDICAL ADVICE. He refused to sign out AGAINST MEDICAL ADVICE stating that the assisted living would not allow him to return if he signed out AMA. I discussed with him that if he is unwilling to sign out AGAINST MEDICAL ADVICE he should be admitted. Patient asked if there is any way he just be discharged. I explained my concerns that I do not believe discharge would be appropriate at this point and that feel he should at least have observation given his altered mental status and continue Dilantin toxicity. Eventually the patient was in agreement. Treatment Plan: [] Disposition: Admit Impression: Transient confusion Transient double vision Dilantin toxicity This note was generated with [employer] dictation software. It may contain incorrect words, spelling, and punctuation that were not noted in review of the chart prior to signing ED Disposition - Plan for ED Patient: Chief Complaint: Alt LOC Referrals: Karma Barnes, BINDING CEMENTER FRENCH CORD-C [Primary Care Provider] -
--- NOTE | 2018-01-30 20:33 | HP.PCM_ITS ---
Problem List (1) Double vision Status: Acute (2) Dilantin toxicity Status: Acute (3) Chronic back pain Status: Chronic (4) Hyperlipidemia Status: Chronic (5) Cognitive impairment Status: Chronic (6) Depression Status: Chronic (7) Seizure disorder Status: Chronic (8) COPD (chronic obstructive pulmonary disease) Status: Chronic History of Present Illness Date of Admission: 01/30/18 Chief Complaint: Double vision The patient is a 58 year old male w/ h/o chronic back pain, lipidemia, depression, seizure, BPH, COPD, and HTN admitted for double vision. Pt unable to provide history. He kept saying that he is fine and is alert and argumentative. His nurse was concern that he was difficult to arouse and alerted medical staff. He said that he was a little dizzy and needed to sleep. After he woke up, he wanted to smoke his vape in his home. He requested that I discharge him. He refused to sign AMA. He was argumentative and no further useful history was obtained. Past Medical History Past Medical History (Chronic Problems): Chronic Problems (Last Updated 01/26/18 @ 13:32 by Greer Barillas) Chronic back pain (Chronic) Hyperlipidemia (Chronic) Cognitive impairment (Chronic) Depression (Chronic) Seizure disorder (Chronic) Benign prostatic hyperplasia (Chronic) Traumatic brain injury (Chronic) COPD (chronic obstructive pulmonary disease) (Chronic) Hypertension (Chronic) Medical History: Medical History (Last Updated 01/26/18 @ 13:32 by Greer Barillas) BPH (benign prostatic hyperplasia) N40.0 COPD with acute exacerbation J44.1 PVD (peripheral vascular disease) I73.9 Back pain M54.9 COPD (chronic obstructive pulmonary disease) J44.9 Essential (primary) hypertension I10 HLD (hyperlipidemia) E78.5 Major depressive disorder F32.9 Memory impairment R41.3 Other seizures G40.89 Radiculopathy M54.10 Type 2 diabetes mellitus E11.9 Stroke I63.9 x4 TBI (traumatic brain injury) S06.9X9A left sided weakness Allergies No Known Allergies Allergy (Verified 01/30/18 15:33) Home Medications: Ambulatory Orders Medication Instructions Recorded amlodipine 5 mg tablet 5 mg PO DAILY 01/26/18 aripiprazole 15 mg tablet 15 mg PO DAILY 01/26/18 aspirin 81 mg tablet,delayed 81 mg PO DAILY 01/26/18 release atorvastatin 40 mg tablet 40 mg PO QHS 01/26/18 cholecalciferol (vitamin D3) 50,000 unit PO MO 01/26/18 50,000 unit capsule docusate sodium 100 mg capsule 100 mg PO BID 01/26/18 fluticasone 250 mcg-salmeterol 50 1 inh INHALATION BID 01/26/18 mcg/dose blistr powdr for inhalation gabapentin 800 mg tablet 800 mg PO TID tab 01/26/18 ipratropium-albuterol 0.5 mg-3 3 ml INHALATION Q6H PRN 01/26/18 mg(2.5 mg base)/3 mL nebulization soln levetiracetam 500 mg tablet 2,000 mg PO HS tab 01/26/18 levetiracetam 750 mg tablet 1,500 mg PO DAILY tab 01/26/18 lisinopril 10 mg tablet 10 mg PO DAILY 01/26/18 loratadine 10 mg tablet 10 mg PO QHS 01/26/18 omeprazole 20 mg capsule,delayed 20 mg PO DAILY 01/26/18 release oxycodone 5 mg capsule 5 mg PO Q6H PRN PRN cap 01/26/18 tamsulosin 0.4 mg capsule 0.4 mg PO DAILY 01/26/18 topiramate 200 mg tablet 200 mg PO BID 01/26/18 trazodone 50 mg tablet 50 mg PO QHS 01/26/18 venlafaxine ER 75 mg 75 mg PO BID cap 01/26/18 capsule,extended release 24 hr verapamil ER 120 mg 24 hr 120 mg PO QDAY 01/26/18 capsule,extended release zolpidem 10 mg tablet 10 mg PO QHS PRN 01/26/18 Melatonin/Pyridoxine HCl (B6) 3 mg PO QHS 01/28/18 [Melatonin 3 mg Tablet] Acetaminophen [Tylenol Extra 1,000 mg PO TID PRN PRN 01/30/18 Strength] Surgical History: Surgical History (Last Updated 01/26/18 @ 13:32 by Greer Barillas) H/O brain surgery Z98.890 History of appendectomy Z90.49 pain pump placement Surgical History: appendectomy, - - Brain surgery. Psychiatric History: Depression Smoking Status: Former smoker - *Family History Maternal Family History: Family History (Last Updated 01/26/18 @ 13:32 by Greer Barillas) Mother Diabetes Hypertension History Items: No pertinent history Paternal Family History: Family History (Last Updated 01/26/18 @ 13:32 by Greer Barillas) Mother Diabetes Hypertension History Items: No pertinent history Review of Systems Constitutional: Denies: Chills, Fever, Weight Change HEENT: Denies: Head Aches, Sinus Congestion, Sinus Drainage Cardiovascular: Denies: Chest Pain, Palpitations Respiratory: Denies: Cough, Shortness of breath at rest, Sputum production Gastrointestinal: Denies: Abdominal Pain, Nausea, Vomiting Genitourinary: Denies: Dysuria Musculoskeletal: Denies: Joint Pain, Joint Tenderness Skin: Denies: Rash, Wounds Neurological: Denies: Numbness, Tingling, Focal weakness Psychiatric: Denies: Anxiety, Depression, Homicidal Ideations, Suicidal Ideations Hematologic/ Lymphatic: Denies: Easy Bruising, Easy Bleeding VTE Information - Inpt Only VTE Present on Admission: No VTE Mechan Device Prophylaxis: SCD's VTE Pharm Prophylaxis ordered?: Yes Patient Problems: Active and Suspected Problems (Last Updated 01/26/18 @ 13:32 by Greer Barillas) Double vision (Acute) Dilantin toxicity (Acute) - Physical Exam General: Alert, Oriented x3, Cooperative HEENT: Atraumatic, PERRLA, EOMI, Normocephalic Neck: Supple, No JVD, Negative Carotid Bruits Lungs: Clear to auscultation, Normal air movement Cardiovascular: Regular rate, No murmurs Abdomen: Bowel Sounds Present, Soft, Non Tender Extremities: No edema, Capillary Refill Less than 3 Seconds Skin: No rashes, No breakdown Musculoskeletal: No Tenderness to Palpation of Joints or Extremities Neurological: Cranial nerves II-XII grossly intact Psych/Mental Status: Normal Affect, Appropriate Vital Signs Temp Pulse Resp BP Pulse Ox 98.1 F 93 20 H 176/96 H 99 01/30/18 15:29 01/30/18 19:34 01/30/18 19:34 01/30/18 19:34 01/30/18 19:34 Oxygen Delivery Method Room Air Weight: 125.3 kg Body Mass Index (BMI) 36.4 Laboratory Tests Past 24 Hrs 01/30/18 01/30/18 01/30/18 16:25 16:25 16:25 WBC 4.0 L RBC 4.55 L Hgb 13.9 Hct 42.2 MCV 92.7 MCH 30.5 MCHC 32.9 RDW 13.5 RDW Differential 45.4 H Plt Count 134 L MPV 10.1 Immature Gran % (Auto) 0.000 Neut % (Auto) 52.1 Lymph % (Auto) 37.2 Cooper % (Auto) 8.5 Eos % (Auto) 1.7 Baso % (Auto) 0.5 Absolute Neuts (auto) 2.1 Absolute Lymphs (auto) 1.49 Total Counted Not Reportable Specimen Type Sample Site pH Bicarbonate Actual POC Total CO2 Base Excess O2 Saturation ABG pCO2 ABG pO2 Luisito Test O2 Delivery Device Blood Gas Notified Whom Blood Gas Notified Time Sodium 143 Potassium 3.6 Chloride 110 H Carbon Dioxide 26.0 Anion Gap 7 BUN 8 Creatinine 0.96 Estim Creat Clear Calc 97.10 Est GFR (MDRD) Af Amer 104 Est GFR (MDRD) Non-Af 86 BUN/Creatinine Ratio 8.3 L Glucose 131 H Calcium 8.3 L Total Bilirubin 0.20 AST 29 ALT 32 Alkaline Phosphatase 160 H Total Protein 8.1 Albumin 4.1 Globulin 4.0 Albumin/Globulin Ratio 1.0 Urine Color Urine Clarity Urine pH Ur Specific [place] Urine Protein Urine Glucose (UA) Urine Ketones Urine Occult Blood Urine Nitrite Urine Bilirubin Urine Urobilinogen Ur Leukocyte Esterase Urine RBC Urine WBC Ur Squamous Epith Cells Urine Bacteria Urine Mucus Phenytoin 39.6 H* 01/30/18 01/30/18 17:15 17:20 WBC RBC Hgb Hct MCV MCH MCHC RDW RDW Differential Plt Count MPV Immature Gran % (Auto) Neut % (Auto) Lymph % (Auto) Cooper % (Auto) Eos % (Auto) Baso % (Auto) Absolute Neuts (auto) Absolute Lymphs (auto) Total Counted Specimen Type ART Sample Site R Radial pH 7.43 Bicarbonate Actual 20.2 L POC Total CO2 21 Base Excess -4 L O2 Saturation 97 ABG pCO2 30.6 L ABG pO2 84 Luisito Test POS O2 Delivery Device Room Air Blood Gas Notified Whom ED Blood Gas Notified Time 1715 Sodium Potassium Chloride Carbon Dioxide Anion Gap BUN Creatinine Estim Creat Clear Calc Est GFR (MDRD) Af Amer Est GFR (MDRD) Non-Af BUN/Creatinine Ratio Glucose Calcium Total Bilirubin AST ALT Alkaline Phosphatase Total Protein Albumin Globulin Albumin/Globulin Ratio Urine Color Yellow Urine Clarity Sl. Cloudy Urine pH 7.0 Ur Specific [place] 1.010 Urine Protein Negative Urine Glucose (UA) 100 H Urine Ketones Negative Urine Occult Blood Negative Urine Nitrite Negative Urine Bilirubin Negative Urine Urobilinogen Normal Ur Leukocyte Esterase Negative Urine RBC 0 SEEN Urine WBC 0 SEEN Ur Squamous Epith Cells 0-5 SEEN Urine Bacteria 0 SEEN Urine Mucus 0 SEEN Phenytoin Assessment/Plan All Active Problems (Last Updated 01/26/18 @ 13:32 by Greer Barillas) Double vision (Acute) Dilantin toxicity (Acute) 58 year old male w/ h/o chronic back pain, lipidemia, depression, seizure, BPH, COPD, and HTN admitted for double vision. 1) Double vision: Probably secondary to meds. Will r/o TIA. CT brain negative. Will get MRI, carotid US and ECHO. Resume home meds. C/w ASA and statin. 2) Dilantin toxicity: Level 39 No e/o depression, intentional self-injury, coingestants, and use of illicit drugs. Mild to moderate toxicity. Appears asymptomatic. No nystagmus, ataxia, slurred speech, nausea, and vomiting. Will repeat level in AM. 3) H/o seizure: Resume home meds. 4) Prophylaxis: SCD
--- NOTE | 2018-01-30 21:15 | NURSING ---
Pt new admission to floor. Pt adamant that he does not want to stay overnight and wants the md to come see him to discharge him. Pt not wanting to leave [facility] as he stated that he would get kicked out of his housing and lose his benefits if he leaves [facility]. Pt not willing to stay in bed or the chair in his room, pt standing at the doorway of his room. Pt refuses to sit down for safety reasons, pt states he's fine and nothing will happen to him, he's perfectly healthy. Security was present as he was doing his nightly rounding and pt refused to listen to security as well, pt remained standing at doorway, staff present at doorway with pt. Pt agreed to go into room for assessment and being served a meal tray, but as soon as pt done with meal and rn completed with him he was back to doorway waiting for md to see pt. Md did come to floor and spoke with pt. Md is was not willing to discharge pt and would not allow him to leave unless it was ama. Pt notably upset and refuses to go into room and wants to be discharged. Security and resource officer present to floor and pt still standing in doorway/hallway. Sitter being made available for pt safety concerns and pt did go back to room as rn had evening meds to give him. Pt aware and understood that md was not going to discharge him and if he did want to leave tonight it would be [facility]. Pt did rest in bed after hs meds given, sitter present at bedside for safety measures.
[2018-01-30 21:48] LABS: Thyroid Stim Hormone (TSH) 1.99 uIU/mL (0.358-3.74)
[2018-01-30] MEDS: 0.9% Normal Saline 1,000 ML 100 ML IV (22:59)
[2018-01-30] MEDS: Atorvastatin Calcium 40 MG Tablet PO (23:06)
[2018-01-30] MEDS: levETIRAcetam 1,000 MG Tablet 2000 MG PO (23:06)
[2018-01-30] MEDS: Venlafaxine HCl 75 MG Tablet PO (23:06)
[2018-01-30] MEDS: MELATONIN 3 MG TABLET PO (23:07)
[2018-01-30] MEDS: Heparin Injection (Vial) 5,000 UNIT/ML VIAL 5000 UNIT SC (23:07)
[2018-01-30] MEDS: Topiramate 200 MG Tablet PO (23:07)
[2018-01-30] MEDS: traZODone 50 MG Tablet PO (23:08)
[2018-01-31 01:00] VITALS: BP 171/93; PULSE 85; RESP 20; TEMP 36.7; O2SAT 98
[2018-01-31 02:00] VITALS: BP 171/93; PULSE 85; RESP 20; TEMP 36.7; O2SAT 98
[2018-01-31 02:25] VITALS: BMI 36.7
[2018-01-31 02:36] LABS: Amphetamine Urine VISTA NEGATIVE (<1000 ng/mL); Barbiturate Urine VISTA NEGATIVE (< 200 ng/mL); Benzodiazepine Urine VISTA NEGATIVE (< 200 ng/mL); Cocaine Urine VISTA NEGATIVE (< 300 ng/mL); Ecstacy Urine VISTA NEGATIVE (< 500 ng/mL); Methadone Urine VISTA NEGATIVE (< 300 ng/mL); PCP Urine VISTA NEGATIVE (< 25 ng/mL); THC Urine VISTA NEGATIVE (< 50 ng/mL); Vista UDS pH Range 6
--- NOTE | 2018-01-31 03:30 | NURSING ---
Pt. has been combative all night. Insisting at this time to talk to Dr. Vang again in order to have him cancel all tests in the morning. Pt. had been given choice to leave AMA or stay the night and have tests done. Pt. agreed to spend night but insists on not having any tests but states he will Lose his home and his waiver if he signs out AMA or refuses tests. Pt. feels Dr. Vang is just ordering tests to make money. Dr. Vang came to room to see pt. with this nurse in room. Spa Therapist , Janna, also came into room longterm through conversation. Pt. continues to argue with Dr. Vang and getting himself all worked up. Pt. taking off heart monitor and trying to leave unit. Dr. Vang, nursing supervisor electronics assembly, charge nurse, Araceli, and this nurse have all explained to pt. he needs to stay for his safety and have tests done to ensure he is safe to go home. Pt. instructed to wait until morning to further discuss with day shift hospitalist. Pt. finally came back into room and will have sitter to monitor him.
--- NOTE | 2018-01-31 04:23 | NURSING ---
This RN called to room 129 at 0340 due to pt threatening to leave. Pt found standing in room and dressed in street clothes. Dr Vang at bedside. Pt refusing any further medical testing. Attempt to encourage pt to stay and have needed testing performed. Pt continues to refuse. After Dr. Vang left bedside pt walked out of room and to elevators. Pt stated he has lost everything and no longer needs to live. He stated he is leaving and will end it. I will take a knife and stab myself as many times as it takes. I will take gun and shoot myself. I want that to find me laying on the side of the road when he leaves here tomorrow morning. Encouraged pt to return to room and get some sleep. I would rather end it in the dark then in the day time. Pt returned to room [address] Vang notified of above conversation. [place] slip obtained. Pt currently sitting at bedside. Refusing to put hospital gown on or heart monitor back on.
--- NOTE | 2018-01-31 04:24 | NURSING ---
Pt. has been threatening to leave and kill himself. States he wants to stab himself and that Things are already ruined. This nurse instructed pt. to try to lie down and rest and talk to doctor in morning. This nurse told pt. we are doing all we can to help him, keep him safe and comfortable. He was also instructed that if he leaves by walking out of hospital, the [place] police will be outside waiting for him and his situation will get much worse. At this time, pt. is in room sitting on bed, being monitored by charge nurse, Araceli. Nursing Clipman, Janna, has talked extensively with patient trying to calm him down and reason with him. Will continue to monitor.
[2018-01-31 05:00] VITALS: BP 158/83; PULSE 89; RESP 20; TEMP 37.3; O2SAT 99
--- NOTE | 2018-01-31 05:00 | NURSING ---
Sitter present at bedside 1:1 with pt. Pt got up to bathroom by self. Sitter alerted this rn and pt closed bathroom door, this rn opened door and saw pt with shirt off and wrapping it on the towel hook. When this rn asked pt what he was doing he stated just clowning around. Pt wanting this rn to close bathroom door and leave pt alone, this rn told pt that he wasn't allowed to be left alone. Pt did go back to bed briefly but got out of bed to bathroom again, door left open as pt up to bathroom and in 1:1 supervision of sitter. After pt done using bathroom pt back to bed. Remains in 1:1 supervision with office machine installer mariaater.
[2018-01-31] MEDS: LORazepam 1 MG Tablet PO (06:00)
[2018-01-31] MEDS: Nystatin Powder 15gm Bottle 1 APPLIC TOPICAL (06:00)
[2018-01-31] MEDS: Heparin Injection (Vial) 5,000 UNIT/ML VIAL 5000 UNIT SC (06:02)
[2018-01-31 07:25] LABS: Anion Gap 9 (5-15); BUN 10 mg/dL (7-18); BUN/Creat Ratio 14.5 RATIO (10-20); Calcium,Total 8.3 mg/dL (8.5-10.1); Chloride 112 mmol/L (98-107); Cholesterol 162 mg/dL (200); Creatinine, Serum 0.69 mg/dL (0.70-1.30); EST Glomerular Filtration Rate 127 mL/min (>60); Est Glom Filt Rate - Afr Amer 153 mL/min (>60); Glucose 172 mg/dL (74-106); High Density Lipoprotein 55 mg/dL; Potassium 3.5 mmol/L (3.5-5.1); Sodium Level 142 mmol/L (136-145); Triglycerides 157 mg/dL; Very Low Density Lipoprotein 31 mg/dL (5-40)
[2018-01-31 07:44] VITALS: BP 160/82; PULSE 89; RESP 18; TEMP 36.5; O2SAT 100
[2018-01-31 08:32] LABS: Hematocrit 45.6 % (40-54); Hemoglobin 15.1 g/dl (13.0-16.5); Mean Corp Hgb Conc 33.1 g/gl (32-36); Mean Corpuscular Hgb 30.8 pg (27.0-32.0); Mean Corpuscular Volume 93.1 fL (80-94); Mean Platelet Vol. 11.3 fl (6.2-12.0); Platelet Count 109 K/mm3 (150-450); RBC Distribution Width CV 13.5 % (11.6-14.6); RBC Distribution Width SD 45.7 fl (35.1-43.9); Scan Indicated on CBC? Y/N NO
[2018-01-31 08:44] VITALS: BMI 36.7
[2018-01-31] MEDS: Pantoprazole Sodium 20 MG Tablet PO (08:57)
[2018-01-31] MEDS: amLODIPine 5 MG Tablet PO (08:57)
[2018-01-31] MEDS: Topiramate 200 MG Tablet PO (08:57)
[2018-01-31] MEDS: Lisinopril 10 MG Tablet PO (08:57)
[2018-01-31] MEDS: Venlafaxine HCl 75 MG Tablet PO (08:58)
[2018-01-31] MEDS: Docusate Sodium 100 MG Capsule PO (08:58)
[2018-01-31] MEDS: levETIRAcetam 750 MG Tablet 1500 MG PO (08:58)
[2018-01-31] MEDS: Tamsulosin HCl 0.4 MG Capsule PO (08:58)
[2018-01-31] MEDS: ARIPiprazole 5 MG Tablet 15 MG PO (08:59)
[2018-01-31] MEDS: Aspirin E.C. 81 MG Tablet PO (08:59)
[2018-01-31] MEDS: Verapamil SR 240 MG Tablet 120 MG PO (08:59)
[2018-01-31 09:33] LABS: Phenytoin (Dilantin) Level 38.4 mL (10.0-20.0)
[2018-01-31] MEDS: QUEtiapine 25 MG Tablet 50 MG PO (10:28)
[2018-01-31 11:46] VITALS: BP 136/76; PULSE 110; RESP 16; TEMP 36.8; O2SAT 96
--- NOTE | 2018-01-31 11:46 | NURSING ---
Pt given d/c instructions and reviewed. Pt verbalizes understanding. [facility] Unable to reach staff at this time. Will continue to attempt contact.
--- NOTE | 2018-01-31 11:46 | PCM.DC.SUM ---
Discharge Date and Diagnosis - Problem List Patient Problems: Active and Suspected Problems (Last Updated 01/26/18 @ 13:32 by Greer Barillas) Double vision (Acute) Dilantin toxicity (Acute) Date of Admission: 01/30/18 Date of Discharge: 01/31/18 - Primary Discharge Diagnosis Active and Suspected Problems (Last Updated 01/26/18 @ 13:32 by Greer Barillas) Double vision (Acute) Dilantin toxicity (Acute) - Secondary Discharge Diagnosis Chronic Problems (Last Updated 01/26/18 @ 13:32 by Greer Barillas) Chronic back pain (Chronic) Hyperlipidemia (Chronic) Cognitive impairment (Chronic) Depression (Chronic) Seizure disorder (Chronic) Benign prostatic hyperplasia (Chronic) Traumatic brain injury (Chronic) COPD (chronic obstructive pulmonary disease) (Chronic) Hypertension (Chronic) Hospital Course and Treatment Imaging Results: Clinical Impression(s) from Imaging Studies Brain CT 01/30/18 15:47 IMPRESSION: No acute intracranial abnormalities or changes. Electronically Signed: Maria Esther Rodrigez MD at 17:15 EDT Tel Direct: [phone], Service support , Chest X-Ray 01/30/18 16:35 IMPRESSION: No acute cardiopulmonary abnormalities. Electronically Signed: Maria Esther Rodrigez MD at 17:16 EDT Tel Direct: [phone], Service support , Consultations 01/31/18 09:41 Consult: Mental Health/Crisis Routine Reason for consult?: suicidal ideation aggressive Date Notified:: 01/31/18 Time notified:: 09:41 Operations: None Procedures: None Summary of Care Provided: The patient is a 58 year old M presents with complaints of diplopia. Pt denied complaints. Concern for suicidal ideation and pt expressed during frustration about not being able to vape. Seen by psych liason who cleared him for discharge. Patient's dilantin level is still elevated but improving. Patient can be discharged to home. Follow up dilantin level in 1 week. Was on 300 TID of dilantin. I would recommend restarting him at 100mg TID once level less than 20. Physical exam. Normal gait. Unkempt. Afebrile. [place]. [] Discharge Diet: Low fat/ Low Cholesterol Discharge Activity: Return to Normal Activity Call your doctor if you observe: Fever of 101 or Higher, - - worsening confusion. Home Medications: Medications to take at Discharge amlodipine 5 mg tablet 5 mg PO DAILY 01/26/18 aripiprazole 15 mg tablet 15 mg PO DAILY 01/26/18 aspirin 81 mg tablet,delayed release 81 mg PO DAILY 01/26/18 atorvastatin 40 mg tablet 40 mg PO QHS 01/26/18 cholecalciferol (vitamin D3) 50,000 unit capsule 50,000 unit PO MO 01/26/18 docusate sodium 100 mg capsule 100 mg PO BID 01/26/18 fluticasone 250 mcg-salmeterol 50 mcg/dose blistr powdr for inhalation 1 inh INHALATION BID 01/26/18 gabapentin 800 mg tablet 800 mg PO TID tab 01/26/18 ipratropium-albuterol 0.5 mg-3 mg(2.5 mg base)/3 mL nebulization soln 3 ml INHALATION Q6H PRN 01/26/18 levetiracetam 500 mg tablet 2,000 mg PO HS tab 01/26/18 levetiracetam 750 mg tablet 1,500 mg PO DAILY tab 01/26/18 lisinopril 10 mg tablet 10 mg PO DAILY 01/26/18 loratadine 10 mg tablet 10 mg PO QHS 01/26/18 omeprazole 20 mg capsule,delayed release 20 mg PO DAILY 01/26/18 oxycodone 5 mg capsule 5 mg PO Q6H PRN PRN cap 01/26/18 tamsulosin 0.4 mg capsule 0.4 mg PO DAILY 01/26/18 topiramate 200 mg tablet 200 mg PO BID 01/26/18 trazodone 50 mg tablet 50 mg PO QHS 01/26/18 venlafaxine ER 75 mg capsule,extended release 24 hr 75 mg PO BID cap 01/26/18 verapamil ER 120 mg 24 hr capsule,extended release 120 mg PO QDAY 01/26/18 zolpidem 10 mg tablet 10 mg PO QHS PRN 01/26/18 Melatonin/Pyridoxine HCl (B6) [Melatonin 3 mg Tablet] 3 mg PO QHS 01/28/18 Acetaminophen [Tylenol] 1,000 mg PO TID PRN PRN 01/30/18 Nystatin Powder [Mycostatin Powder] 1 applic TOPICAL TID bottle 01/31/18 Primary Care Physician: Karma Barnes NP-C [Primary Care Provider] - Please Follow Up With: anisha When: 2 weeks Disposition: Home Minutes spent on discharge:: 40 Patient Condition:: Fair Medical Necessity - Tobacco Use Smoking Status: Current every day smoker Tobacco Use: Vapor Meaningful Use Info Meaningful Use Diagnoses (Choose all that apply): None applicable Code Visit Inpatient E&M: 00745 Disch Hosp
--- NOTE | 2018-01-31 11:53 | DS.PCM_ITS ---
Discharge Date and Diagnosis - Problem List Patient Problems: Active and Suspected Problems (Last Updated 01/26/18 @ 13:32 by Greer Barillas) Double vision (Acute) Dilantin toxicity (Acute) Date of Admission: 01/30/18 Date of Discharge: 01/31/18 - Primary Discharge Diagnosis Active and Suspected Problems (Last Updated 01/26/18 @ 13:32 by Greer Barillas) Double vision (Acute) Dilantin toxicity (Acute) - Secondary Discharge Diagnosis Chronic Problems (Last Updated 01/26/18 @ 13:32 by Greer Barillas) Chronic back pain (Chronic) Hyperlipidemia (Chronic) Cognitive impairment (Chronic) Depression (Chronic) Seizure disorder (Chronic) Benign prostatic hyperplasia (Chronic) Traumatic brain injury (Chronic) COPD (chronic obstructive pulmonary disease) (Chronic) Hypertension (Chronic) Hospital Course and Treatment Imaging Results: Clinical Impression(s) from Imaging Studies Brain CT 01/30/18 15:47 IMPRESSION: No acute intracranial abnormalities or changes. Electronically Signed: Maria Esther Rodrigez MD at 17:15 EDT Tel Direct: [phone], Service support , Chest X-Ray 01/30/18 16:35 IMPRESSION: No acute cardiopulmonary abnormalities. Electronically Signed: Maria Esther Rodrigez MD at 17:16 EDT Tel Direct: [phone], Service support , Consultations 01/31/18 09:41 Consult: Mental Health/Crisis Routine Reason for consult?: suicidal ideation aggressive Date Notified:: 01/31/18 Time notified:: 09:41 Operations: None Procedures: None Summary of Care Provided: The patient is a 58 year old M presents with complaints of diplopia. Pt denied complaints. Concern for suicidal ideation and pt expressed during frustration about not being able to vape. Seen by psych liason who cleared him for discharge. Patient's dilantin level is still elevated but improving. Patient can be discharged to home. Follow up dilantin level in 1 week. Was on 300 TID of dilantin. I would recommend restarting him at 100mg TID once level less than 20. Physical exam. Normal gait. Unkempt. Afebrile. [place]. [] Discharge Diet: Low fat/ Low Cholesterol Discharge Activity: Return to Normal Activity Call your doctor if you observe: Fever of 101 or Higher, - - worsening confusion. Home Medications: Medications to take at Discharge amlodipine 5 mg tablet 5 mg PO DAILY 01/26/18 aripiprazole 15 mg tablet 15 mg PO DAILY 01/26/18 aspirin 81 mg tablet,delayed release 81 mg PO DAILY 01/26/18 atorvastatin 40 mg tablet 40 mg PO QHS 01/26/18 cholecalciferol (vitamin D3) 50,000 unit capsule 50,000 unit PO MO 01/26/18 docusate sodium 100 mg capsule 100 mg PO BID 01/26/18 fluticasone 250 mcg-salmeterol 50 mcg/dose blistr powdr for inhalation 1 inh INHALATION BID 01/26/18 gabapentin 800 mg tablet 800 mg PO TID tab 01/26/18 ipratropium-albuterol 0.5 mg-3 mg(2.5 mg base)/3 mL nebulization soln 3 ml INHALATION Q6H PRN 01/26/18 levetiracetam 500 mg tablet 2,000 mg PO HS tab 01/26/18 levetiracetam 750 mg tablet 1,500 mg PO DAILY tab 01/26/18 lisinopril 10 mg tablet 10 mg PO DAILY 01/26/18 loratadine 10 mg tablet 10 mg PO QHS 01/26/18 omeprazole 20 mg capsule,delayed release 20 mg PO DAILY 01/26/18 oxycodone 5 mg capsule 5 mg PO Q6H PRN PRN cap 01/26/18 tamsulosin 0.4 mg capsule 0.4 mg PO DAILY 01/26/18 topiramate 200 mg tablet 200 mg PO BID 01/26/18 trazodone 50 mg tablet 50 mg PO QHS 01/26/18 venlafaxine ER 75 mg capsule,extended release 24 hr 75 mg PO BID cap 01/26/18 verapamil ER 120 mg 24 hr capsule,extended release 120 mg PO QDAY 01/26/18 zolpidem 10 mg tablet 10 mg PO QHS PRN 01/26/18 Melatonin/Pyridoxine HCl (B6) [Melatonin 3 mg Tablet] 3 mg PO QHS 01/28/18 Acetaminophen [Tylenol] 1,000 mg PO TID PRN PRN 01/30/18 Nystatin Powder [Mycostatin Powder] 1 applic TOPICAL TID bottle 01/31/18 Primary Care Physician: Karma Barnes NP-C [Primary Care Provider] - Please Follow Up With: anisha When: 2 weeks Disposition: Home Minutes spent on discharge:: 40 Patient Condition:: Fair Medical Necessity - Tobacco Use Smoking Status: Current every day smoker Tobacco Use: Vapor Meaningful Use Info Meaningful Use Diagnoses (Choose all that apply): None applicable Code Visit Inpatient E&M: 21569 Disch Hosp
--- NOTE | 2018-01-31 12:26 | NURSING ---
Notified facility of pt d/c after multiple attempts at making contact with facility. Aura WRIGHT at [facility] voiced concerns regarding Dilantin level. Dr. Beasley made aware, ok with pt d/c at this time. Pt was adamant that he was returning home upon being notified of d/c. Stated several times that he would walk home if necessary.
--- NOTE | 2018-01-31 15:36 | NURSING ---
Pt left facility at this time via to cab.
== END 2018-01-31 15:42 | disposition home or self-care (01) ==
LOC: ED 18:28 → PCU 20:48
PROVIDERS: Admitting Provider Internal Medicine; Emergency Provider Emergency Medicine; Family Provider Nurse Practitioner Adult Health; PCP Nurse Practitioner Adult Health
DX: R41.82 Altered mental status, unspecified (principal); T42.0X5A Adverse effect of hydantoin derivatives, initial encounter; H53.2 Diplopia; J44.9 Chronic obstructive pulmonary disease, unspecified; I10 Essential (primary) hypertension; E78.5 Hyperlipidemia, unspecified; G40.909 Epilepsy, unspecified, not intractable, without status epilepticus; N40.0 Benign prostatic hyperplasia without lower urinary tract symptoms; F32.9 Major depressive disorder, single episode, unspecified; Z87.820 Personal history of traumatic brain injury; G89.29 Other chronic pain; M54.2 Cervicalgia; M54.9 Dorsalgia, unspecified; I73.9 Peripheral vascular disease, unspecified; R53.1 Weakness; E11.9 Type 2 diabetes mellitus without complications; Z79.899 Other long term (current) drug therapy; Z79.82 Long term (current) use of aspirin; Z79.51 Long term (current) use of inhaled steroids; Z87.891 Personal history of nicotine dependence
CPT/HCPCS: 36415; 36600; 70450; 71045; 80048; 80053; 80061; 80185; 80186; 80307; 81001; 82803; 84443; 84484; 85025; 85027; 92610; 93005; 96360; 96361; 96372; 99218; 99285; J7030; A4216; G0378; G8996; G8997; G8998

== ENCOUNTER → 2018-02-08 11:26 | Outpatient (CLI) | payer MEDICARE, SELFPAY ==
--- NOTE | 2018-02-08 11:26 | DT_ITS ---
This patient was seen during an EMR downtime February 01, 2018 - February 08, 2018. This patient may have a combination of paper and electronic documentation or all paper documentation. All documentation is viewable within the e-chart portion of [facility] for each patient visit.
--- NOTE | 2018-02-08 11:30 | RAD_ITS ---
STUDY: X-RAY - LUMBAR SPINE REASON FOR EXAM: Male, 58 years old. Low back pain. History of many falls. TECHNIQUE: 3 view(s) of the lumbar spine were obtained. COMPARISON: None FINDINGS: Normal lumbar lordosis. There is no substantial scoliosis. There is a normal alignment of the vertebrae. Normal vertebral bodies and endplates. There is mild intervertebral disc space narrowing with osteophyte formation most marked at L1 to and L2-3. There is diffuse facet sclerosis. The soft tissue structures are unremarkable. RAD/Lumbar Spine 2 or 3 Views IMPRESSION: Lumbar spondylosis. No acute pathology. Electronically Signed: Benito Cartwright MD at 17:36 EDT , Service support ,
--- NOTE | 2018-02-08 11:30 | RAD_ITS ---
STUDY: X-RAY - SACRUM/COCCYX REASON FOR EXAM: Male, 58 years old. Low back pain. History of many falls. TECHNIQUE: 3 view(s) of the sacrum and coccyx were obtained. COMPARISON: None. FINDINGS: There is generalized osteopenia. Normal bilateral sacroiliac joints. Normal visualized sacral ala and fused sacral bodies. Normal sacrococcygeal junction with a normal angulation. Normal coccygeal segments. Incidentally noted is moderate arthrosis of both hips. A penile prosthesis is noted. The presacral soft tissue structures are unremarkable. RAD/Sacrum-Coccyx min 2 Views IMPRESSION: Osteopenia with arthrosis of both hips. No acute pathology. Electronically Signed: Benito Cartwright MD at 17:52 EDT , Service support ,
== END ==
PROVIDERS: Family Provider Nurse Practitioner Adult Health; PCP Nurse Practitioner Adult Health; Visit Provider Anesthesiology Pain Medicine
DX: M54.5 Low back pain (principal)
CPT/HCPCS: 72100; 72220

== ENCOUNTER 2018-02-13 16:44 | Emergency (ER) | payer MEDICARE, SELFPAY ==
[2018-02-13 16:45] VITALS: BP 173/72; PULSE 104; RESP 19; TEMP 36.7; O2SAT 96; BMI 36.8
[2018-02-13 17:21] VITALS: BP 138/57; PULSE 97; RESP 18
--- NOTE | 2018-02-13 17:45 | ED.RN ---
PT REQUESTING TO GO OUTSIDE TO VAPE. THIS NURSE EXPLAINED TO THE PT MULTIPLE TIMES HE IS NOT ABLE TO GO OUTSIDE. PT BECAME AGITATED. PT UP WALKING AROUND THE ROOM. THIS NURSE CONVINCED THE PT TO SIT BACK IN THE BED AND WAIT FOR LAB RESULTS THEN SPEAK WITH THE DR. PT AGAIN REQUEST TO GO OUTSIDE AND VAPE. AGAIN, THIS NURSE EXPLAINED HE IS NOT ABLE TO DO THIS. PT INFORMED HE HAS THE OPTION OF LEAVING AMA. PT STATES I CAN'T LEAVE AMA I WILL LOSE MY WAIVER AND MY HOUSING. THIS NURSE THEN EXPLAINED HIS OPTIONS. AT THIS TIME, PT CHOSE TO WAIT FOR TEST RESULTS
--- NOTE | 2018-02-13 17:58 | ED.VISSUMM ---
- ER Visit Summary Date of Service: 02/13/18 Chief Complaint: Seizure History of Present Illness: The patient is a 58 M presenting for evaluation secondary to a seizure. Patient has an underlying history of seizures and takes Dilantin. Patient had a supratherapeutic Dilantin level early this month, so they are titrating his doses of Dilantin. He had a Dilantin level drawn yesterday but has not gotten the level back. Today tonic-clonic seizure. He denies any tongue biting. Denies any fevers nausea or vomiting loss of bowel or bladder continence. View of systems otherwise negative. Physical Examination: Vital signs are within normal limits, patient is afebrile. General: Patient is well-nourished well-developed and in no acute distress. Head: Normocephalic, atraumatic Eyes: Pupils equal round and reactive bilaterally, extra occular motion intact bialterally ENT: Moist mucous membranes Neck: Supple, no lymphadenopathy, no JVD, no meningismus CVS: Heart regular rate and rhythm, no murmurs, rubs or gallops, radial pulses 2+ bilaterally Resp: Respirations nondistressed, lung sounds clear bilaterally Abdomen: Soft, nontender, nondistended, no palpable masses, normal bowel sounds Back: Nontender Extremities: Nontender, atraumatic, active full range of motion, no peripheral edema Skin: warm, no rashes, no petechia Neuro: Alert and oriented x 4, CN 2-12 intact, no lateralizing neurological defecits Psyc: Normal affect Test Results: Dilantin level slightly supratherapeutic at 24 Emergency Department Course and Treatment: Patient presented for evaluation secondary to a seizure. He was observed in the emergency department for an hour and a half did not have any repeat episodes, had full return to baseline. Dilantin level was drawn, and was found to be slightly supratherapeutic at 24. Patient was recommended to follow-up with primary care for this. All questions were answered and the patient was discharged in stable condition. Disposition: Discharge Impression: 1. Breakthrough seizure This note was generated with Factor[employer]ation software. It may contain incorrect words, spelling, and punctuation that were not noted in review of the chart prior to signing ED Disposition - Plan for ED Patient: Disposition: Home or Assisted Living Chief Complaint: Seizure Diagnosis: Breakthrough seizure Instructions: ED Seizure Recurrent Referrals: Karma Barnes, BUMP GRADER OPERATOR-C [Primary Care Provider] - As soon as possible
[2018-02-13 18:42] VITALS: BP 180/91; PULSE 100; RESP 18; O2SAT 97
--- NOTE | 2018-02-13 18:43 | NURSING ---
PT ALERT AND COOPERATIVE IN ROOM; NO SEIZURE ACTIVITY NOTED. STEADY ON FEET, VERBALIZES UNDERSTANDING OF INSTRUCTIONS AND COOPERATIVE WITH STAFF. ATTEMPTED SEVERAL TIMES TO CALL [facility] FOR TRANSPORT HOME. LEFT [address] INS[address]OR RECEIVED OK FROM FIELD SALES ASSOCIATE TO CALL [employer].
== END 2018-02-13 18:45 | disposition home or self-care (01) ==
PROVIDERS: Emergency Provider Emergency Medicine; Family Provider Nurse Practitioner Adult Health; PCP Nurse Practitioner Adult Health
DX: G40.409 Other generalized epilepsy and epileptic syndromes, not intractable, without status epilepticus (principal); E66.9 Obesity, unspecified; Z79.82 Long term (current) use of aspirin; Z79.891 Long term (current) use of opiate analgesic; Z79.899 Other long term (current) drug therapy
CPT/HCPCS: 36415; 80185; 99283

== ENCOUNTER 2018-02-22 21:43 | Observation (INO) | payer MEDICARE, SELFPAY ==
[2018-02-22 21:46] VITALS: BP 164/76; PULSE 74; RESP 15; TEMP 36.2; O2SAT 97; BMI 38.0
[2018-02-22 21:56] LABS: Bedside Glucose 112 mg/dL (70-110)
--- NOTE | 2018-02-22 22:12 | EKG12_ITS ---
Test Reason : ALT LOC Blood Pressure : / mmHG Vent. Rate : 072 BPM Atrial Rate : 072 BPM P-R Int : 138 ms QRS Dur : 100 ms QT Int : 394 ms P-R-T Axes : 050 018 031 degrees QTc Int : 431 ms Normal sinus rhythm Normal ECG Confirmed by DARIN LOCKHART, KATHRINE ([id number]), content editor MARIE URIBE ([id number]) on 02/25/2018 4:20:40 PM Referred By: Durga Gomez Confirmed By:KATHRINE WEBSTER MD
--- NOTE | 2018-02-22 22:12 | CT_ITS ---
STUDY: CT BRAIN WITHOUT CONTRAST REASON FOR EXAM: Male, 58 years old. Found unresponsive RADIATION DOSAGE (If Supplied By Facility): CTDIvol = ( 44.99 ) mGy, DLP = ( 846.73 ) mGycm TECHNIQUE: Transaxial CT imaging of the brain was performed without administration of intravenous contrast material. Individualized dose optimization techniques were used for this CT. COMPARISON: January 30, 2018 CT brain FINDINGS: No evidence for shift of midline structures, mass effect or compression of ventricles noted. Left-sided temporal craniotomy changes with encephalomalacia and gliosis in the left upper lobe. Right-sided marline hole also seen. Encephalomalacia and gliosis in the right temporal lobe also noted may relate with prior traumatic injury. Mucosal thickening of the ethmoid air cells and the maxillary sinuses. Mastoid air cells are essentially clear. Valentin-white differentiation is maintained. Left-sided parietal scalp swelling. IMPRESSION: No evidence for acute intracranial hemorrhage, mass effect or acute large territory infarcts. Left-sided temporal craniotomy changes with encephalomalacia and gliosis. Electronically Signed: Chris Powers, at 23:35 EDT Tel , Service support , CT/Brain/Head without Contrast
--- NOTE | 2018-02-22 22:16 | ED.VISSUMM ---
- ER Visit Summary Date of Service: 02/22/18 Chief Complaint: [Altered mental status] History of Present Illness: The patient is a 58 M [who presents to the emergency department with weakness all day it was difficult to arouse per family. He states this is happened to him several times. He states that he does not know why. He denies fever or pain. He does state that his doctor did just recently increase his pain medication. He has COPD. History and review of systems is as limited because patient is somnolent and requires constant redirection.] Physical Examination: [] 164/76 other vitals within normal limits WN WD NAD obese PERRL EOMI MMM NECK supple and nontender, no masses RRR no murmur rub or gallop, no peripheral edema, symmetric radial pulses CTAB no respiratory distress ABDOMEN is soft and nontender, normal bowel sounds, no distension, no rebound or guarding SKIN is warm and dry no rashes 2+ edema bilaterally with chronic changes of the skin related to his chronic edema Alert and Oriented x3, cranial nerves II through XII intact patient is somnolent and requires frequent redirection has slightly slurred speech and is diffusely weak but there is no focal deficits No lymphadenopathy Test Results: [] Emergency Department Course and Treatment: [Patient remained lethargic. ABG showed mild hypoxemia. Chest x-ray was normal. CT of the head was unremarkable. Labs did not show anything significant except for elevated Dilantin level. Patient had a urinary tract infection. He was given ceftriaxone. Given his level of mental status I do think he requires admission.] Treatment Plan: [] Disposition: [Admit] Impression: [1. Altered mental status 2. UTI 3. Dilantin toxicity] This note was generated with [employer] dictation software. It may contain incorrect words, spelling, and punctuation that were not noted in review of the chart prior to signing ED Disposition - Plan for ED Patient: Chief Complaint: Alt LOC Referrals: Karma Barnes, KEERTHI-C [Primary Care Provider] -
--- NOTE | 2018-02-22 22:19 | ED.DCSUM_ITS ---
- ER Visit Summary Date of Service: 02/22/18 Chief Complaint: [Altered mental status] History of Present Illness: The patient is a 58 M [who presents to the emergency department with weakness all day it was difficult to arouse per family. He states this is happened to him several times. He states that he does not know why. He denies fever or pain. He does state that his doctor did just recently increase his pain medication. He has COPD. History and review of systems is as limited because patient is somnolent and requires constant redirection.] Physical Examination: [] 164/76 other vitals within normal limits WN WD NAD obese PERRL EOMI MMM NECK supple and nontender, no masses RRR no murmur rub or gallop, no peripheral edema, symmetric radial pulses CTAB no respiratory distress ABDOMEN is soft and nontender, normal bowel sounds, no distension, no rebound or guarding SKIN is warm and dry no rashes 2+ edema bilaterally with chronic changes of the skin related to his chronic edema Alert and Oriented x3, cranial nerves II through XII intact patient is somnolent and requires frequent redirection has slightly slurred speech and is diffusely weak but there is no focal deficits No lymphadenopathy Test Results: [] Emergency Department Course and Treatment: [Patient remained lethargic. ABG showed mild hypoxemia. Chest x-ray was normal. CT of the head was unremarkable. Labs did not show anything significant except for elevated Dilantin level. Patient had a urinary tract infection. He was given ceftriaxone. Given his level of mental status I do think he requires admission. ] Treatment Plan: [] Disposition: [Admit] Impression: [1. Altered mental status 2. UTI 3. Dilantin toxicity] This note was generated with [employer] dictation software. It may contain incorrect words, spelling, and punctuation that were not noted in review of the chart prior to signing ED Disposition - Plan for ED Patient: Chief Complaint: Alt LOC Referrals: Karma Barnes, KEERTHI-C [Primary Care Provider] -
--- NOTE | 2018-02-22 22:34 | RAD_ITS ---
STUDY: X-RAY CHEST REASON FOR EXAM: Male, 58 years old. Unresponsive patient TECHNIQUE: Single view of the chest was obtained COMPARISON: January 30, 2018 chest radiograph FINDINGS: No lung consolidation, pleural effusion or pneumothorax. Cardiac size is within normal limits. Mild perihilar streaky opacities. Degenerative changes in the thoracic spine. Elevated right hemidiaphragm. IMPRESSION: Mild perihilar congestive changes. No pneumothorax or lung consolidation seen. Electronically Signed: Chris Powers, at 22:59 EDT Tel , Service support , RAD/Chest 1 View (Portable)
[2018-02-22 22:41] LABS: Bacteria 0 SEEN /hpf (None Seen); Mucous, Urine 0 SEEN /hpf (<or=2+)
[2018-02-22 22:46] LABS: Color, Urine Yellow (Yellow); Glucose, Dipstick Normal (Normal); Ketone-Dipstick 15 mg/dl (Negative); Leukocyte Esterase-Dipstick 500 /ul (Negative); Nitrite-Dipstick Negative (Negative); Occult Blood-Urine 10 /ul (Negative); Protein-Dipstick 15 mg/dl (Negative); Specific Gravity, Urine 1.015 (1.002-1.030); Urine Bilirubin Dipstick Negative (Negative); Urine Clarity Cloudy (Clear); Urine Urobilinogen 1 mg/dl (Normal)
[2018-02-22 23:00] LABS: Base Excess -5 mmol/L (-2 to +2); Bicarbonate 20.9 mmol/L (22-26); Blood Gas Specimen Type ART; O2 Delivery Device Room Air; PO2 71 mmHG (75-100); SITE L Radial; SO2 93 % (95-99); Total Carbon Dioxide 22 mmol/L; pCO2 38.4 mmHg (35-45); pH 7.34 (7.35-7.45)
[2018-02-22 23:02] LABS: Red Blood Cells-Urine 0-5 SEEN /hpf (0-5); Squamous Epithelial Cells - UA 10-25 SEEN /hpf (0-5); White Blood Cells 50-100 SEEN /hpf (0-5)
[2018-02-22 23:38] LABS: Absolute Lymphocyte Count 1.68 X10^3/ul (0.83-4.51); Basophil# 0.01 X10^3/uL; Basophil% 0.2 % (0-1); Eosinophil# 0.06 X10^3/uL; Eosinophils% 1.5 % (0-5); Hematocrit 39.4 % (40-54); Hemoglobin 13.1 g/dl (13.0-16.5); Lymphocyte # 1.68 X10^3/ul (4.0); Lymphocyte % 40.9 % (19-41); Mean Corp Hgb Conc 33.2 g/gl (32-36); Mean Corpuscular Hgb 31.6 pg (27.0-32.0); Mean Corpuscular Volume 94.9 fL (80-94); Mean Platelet Vol. 9.7 fl (6.2-12.0); Monocyte# 0.35 X10^3/uL; Monocyte% 8.5 % (0-10); Neutrophil % 48.7 % (47-70); Platelet Count 134 K/mm3 (150-450); RBC Distribution Width CV 13.8 % (11.6-14.6); RBC Distribution Width SD 46.1 fl (35.1-43.9); Red Blood Count 4.15 M/mm3 (4.6-6.2); White Blood Count 4.1 K/mm3 (4.4-11.0)
[2018-02-22 23:40] LABS: POSITIVE COUNT NO; POSITIVE DIFFERENTIAL NO; POSITIVE MORPHOLOGY NO
[2018-02-23] VITALS (7 sets, daily range): BP systolic 107–173; BP diastolic 60–87; PULSE 62–81; RESP 15–20; TEMP 36.5–37.1; O2SAT 94–100; BMI 36.0
[2018-02-23 00:01] LABS: ALB/GLOB Ratio 1.2 RATIO (0.9-2.4); AST(SGOT) 13 U/L (15-37); Alanine Aminotransfer ALT/SGPT 24 U/L (16-61); Albumin, Serum 3.9 g/dL (3.2-5.0); Alkaline Phosphatase 113 U/L (45-117); Anion Gap 8 (5-15); BUN 13 mg/dL (7-18); BUN/Creat Ratio 16.4 RATIO (10-20); Calcium,Total 8.5 mg/dL (8.5-10.1); Chloride 110 mmol/L (98-107); Creatinine, Serum 0.79 mg/dL (0.70-1.30); EST Glomerular Filtration Rate 108 mL/min (>60); Est Glom Filt Rate - Afr Amer 130 mL/min (>60); Globulin 3.2 g/dL (2.2-4.2); Glucose 102 mg/dL (74-106); Potassium 3.5 mmol/L (3.5-5.1); Protein, Total 7.1 g/dL (6.4-8.2); Sodium Level 143 mmol/L (136-145)
[2018-02-23 00:28] LABS: Phenytoin (Dilantin) Level 34.9 mL (10.0-20.0)
--- NOTE | 2018-02-23 01:12 | NURSING ---
UNABLE TO OBTAIN IV AFTER MULTIPLE ATTEMPTS. AND DR. CHASE NOTIFIED. STATES OK FOR FLOOR WITHOUT IV
--- NOTE | 2018-02-23 01:25 | PCM.HP.STD ---
Problem List (1) Altered mental state Status: Acute (2) Obesity due to excess calories with serious comorbidity Status: Chronic Qualifiers: (3) RAFAELA (obstructive sleep apnea) Status: Chronic (4) Chronic back pain Status: Chronic (5) Hyperlipidemia Status: Chronic (6) Cognitive impairment Status: Chronic (7) Depression Status: Chronic (8) Seizure disorder Status: Chronic (9) Benign prostatic hyperplasia Status: Chronic (10) Traumatic brain injury Status: Chronic (11) COPD (chronic obstructive pulmonary disease) Status: Chronic (12) Hypertension Status: Chronic History of Present Illness Date of Admission: 02/23/18 Chief Complaint: difficult to arouse The patient is a 58 year old male patient with significant past medical history of traumatic brain injury who presents to the ER with complaint of , difficult to arouse. Recently his pain management doctor increased his pain medication and since that time he has been difficult to arouse. He has a history of being violent and non compliant with care in the hospital. Previous code violets have been called on this patient. Currently resting in NAD but he remains difficult to wake up. Vitals are within normal limits and imagine as well as laboratory sories have been within normal limits. Past Medical History Past Medical History (Chronic Problems): Chronic Problems (Last Reviewed 02/17/18 @ 09:14 by Lorrie Be) Obesity due to excess calories with serious comorbidity (Chronic) RAFAELA (obstructive sleep apnea) (Chronic) Chronic back pain (Chronic) Hyperlipidemia (Chronic) Cognitive impairment (Chronic) Depression (Chronic) Seizure disorder (Chronic) Benign prostatic hyperplasia (Chronic) Traumatic brain injury (Chronic) COPD (chronic obstructive pulmonary disease) (Chronic) Hypertension (Chronic) Medical History: Medical History (Last Reviewed 02/17/18 @ 09:14 by Lorrie Be) BPH (benign prostatic hyperplasia) N40.0 COPD with acute exacerbation J44.1 PVD (peripheral vascular disease) I73.9 Back pain M54.9 COPD (chronic obstructive pulmonary disease) J44.9 Essential (primary) hypertension I10 HLD (hyperlipidemia) E78.5 Major depressive disorder F32.9 Memory impairment R41.3 Other seizures G40.89 Radiculopathy M54.10 Type 2 diabetes mellitus E11.9 Stroke I63.9 x4 TBI (traumatic brain injury) S06.9X9A left sided weakness Allergies No Known Allergies Allergy (Verified 02/22/18 21:49) Home Medications: Ambulatory Orders Medication Instructions Recorded amlodipine 5 mg tablet 5 mg PO DAILY 01/26/18 aripiprazole 15 mg tablet 15 mg PO DAILY 01/26/18 aspirin 81 mg tablet,delayed 81 mg PO DAILY 01/26/18 release atorvastatin 40 mg tablet 40 mg PO QHS 01/26/18 cholecalciferol (vitamin D3) 50,000 unit PO MO 01/26/18 50,000 unit capsule docusate sodium 100 mg capsule 100 mg PO BID 01/26/18 fluticasone 250 mcg-salmeterol 50 1 inh INHALATION BID 01/26/18 mcg/dose blistr powdr for inhalation gabapentin 800 mg tablet 800 mg PO TID tab 01/26/18 ipratropium-albuterol 0.5 mg-3 3 ml INHALATION Q6H PRN 01/26/18 mg(2.5 mg base)/3 mL nebulization soln levetiracetam 500 mg tablet 2,000 mg PO HS tab 01/26/18 levetiracetam 750 mg tablet 1,500 mg PO DAILY tab 01/26/18 lisinopril 10 mg tablet 15 mg PO DAILY 01/26/18 loratadine 10 mg tablet 10 mg PO QHS 01/26/18 omeprazole 20 mg capsule,delayed 20 mg PO DAILY 01/26/18 release oxycodone 5 mg capsule 10 mg PO BID PRN PRN cap 01/26/18 tamsulosin 0.4 mg capsule 0.4 mg PO DAILY 01/26/18 topiramate 200 mg tablet 200 mg PO BID 01/26/18 trazodone 50 mg tablet 50 mg PO QHS 01/26/18 venlafaxine ER 75 mg 75 mg PO BID cap 01/26/18 capsule,extended release 24 hr verapamil ER 120 mg 24 hr 120 mg PO QDAY 01/26/18 capsule,extended release zolpidem 10 mg tablet 10 mg PO QHS PRN 01/26/18 Melatonin/Pyridoxine HCl (B6) 6 mg PO QHS 01/28/18 [Melatonin 3 mg Tablet] Acetaminophen [Tylenol] 1,000 mg PO TID PRN PRN 01/30/18 Lorazepam [Ativan] 2 mg RECTAL PRN PRN 02/13/18 Oxycodone Myristate [Xtampza ER] 9 mg PO BID 02/13/18 Phenytoin Na [Dilantin] 200 mg PO LUNCH 02/13/18 Phenytoin Sodium Extended 250 mg PO BID 02/13/18 [Dilantin] Surgical History: Surgical History (Last Reviewed 02/17/18 @ 09:14 by Lorrie Be) H/O brain surgery Z98.890 History of appendectomy Z90.49 pain pump placement Surgical History: appendectomy, - - Brain surgery. Psychiatric History: Depression Smoking Status: Current every day smoker - *Family History Maternal Family History: Family History (Last Reviewed 02/17/18 @ 09:14 by Lorrie Be) Mother Diabetes Hypertension History Items: No pertinent history Paternal Family History: Family History (Last Reviewed 02/17/18 @ 09:14 by Lorrie Be) Mother Diabetes Hypertension History Items: No pertinent history Review of Systems Unable to obtain accurate/complete ROS d/t: patient is obtunded VTE Information - Inpt Only VTE Present on Admission: No VTE Mechan Device Prophylaxis: SCD's VTE Pharm Prophylaxis ordered?: No Patient Problems: Active and Suspected Problems (Last Reviewed 02/17/18 @ 09:14 by Lorrie Be) Altered mental state (Acute) - Physical Exam General: Confused, Disoriented, Lethargic HEENT: Atraumatic, Normocephalic Neck: Supple Lungs: Clear to auscultation, Normal air movement Cardiovascular: Regular rate, Normal S1, Normal S2, No murmurs Abdomen: Bowel Sounds Present, Soft, Non Tender, Obese Extremities: No edema Skin: No rashes Musculoskeletal: No Tenderness to Palpation of Joints or Extremities Neurological: Neuro grossly intact Psych/Mental Status: Normal Affect, Appropriate Vital Signs Temp Pulse Resp BP Pulse Ox 97.2 F L 63 16 107/65 98 02/22/18 21:46 02/23/18 01:14 02/23/18 01:14 02/23/18 01:14 02/23/18 01:14 Oxygen Delivery Method Room Air Weight: 280 lb 13.903 oz Body Mass Index (BMI) 38.0 Finger Stick Blood Glucose 112 Laboratory Tests Past 24 Hrs 02/22/18 02/22/18 02/22/18 22:35 22:56 23:30 WBC 4.1 L RBC 4.15 L Hgb 13.1 Hct 39.4 L MCV 94.9 H MCH 31.6 MCHC 33.2 RDW 13.8 RDW Differential 46.1 H Plt Count 134 L MPV 9.7 Immature Gran % (Auto) 0.200 Neut % (Auto) 48.7 Lymph % (Auto) 40.9 [place] % (Auto) 8.5 Eos % (Auto) 1.5 Baso % (Auto) 0.2 Absolute Neuts (auto) 2.0 Absolute Lymphs (auto) 1.68 Total Counted Not Reportable Specimen Type ART Sample Site L Radial pH 7.34 L Bicarbonate Actual 20.9 L POC Total CO2 22 Base Excess -5 L O2 Saturation 93 L ABG pCO2 38.4 ABG pO2 71 L Luisito Test NA O2 Delivery Device Room Air Blood Gas Notified Whom ED MD Sodium Potassium Chloride Carbon Dioxide Anion Gap BUN Creatinine Estim Creat Clear Calc Est GFR (MDRD) Af Amer Est GFR (MDRD) Non-Af BUN/Creatinine Ratio Glucose Calcium Total Bilirubin AST ALT Alkaline Phosphatase Troponin I Total Protein Albumin Globulin Albumin/Globulin Ratio Urine Color Yellow Urine Clarity Cloudy Urine pH 7.0 Ur Specific [place] 1.015 Urine Protein 15 H Urine Glucose (UA) Normal Urine Ketones 15 H Urine Occult Blood 10 H Urine Nitrite Negative Urine Bilirubin Negative Urine Urobilinogen 1 H Ur Leukocyte Esterase 500 H Urine RBC 0-5 SEEN Urine WBC 50-100 SEEN Ur Squamous Epith Cells 10-25 SEEN Urine Bacteria 0 SEEN Urine Mucus 0 SEEN Phenytoin 02/22/18 02/22/18 23:30 23:30 WBC RBC Hgb Hct MCV MCH MCHC RDW RDW Differential Plt Count MPV Immature Gran % (Auto) Neut % (Auto) Lymph % (Auto) [place] % (Auto) Eos % (Auto) Baso % (Auto) Absolute Neuts (auto) Absolute Lymphs (auto) Total Counted Specimen Type Sample Site pH Bicarbonate Actual POC Total CO2 Base Excess O2 Saturation ABG pCO2 ABG pO2 Luisito Test O2 Delivery Device Blood Gas Notified Whom Sodium 143 Potassium 3.5 Chloride 110 H Carbon Dioxide 25.0 Anion Gap 8 BUN 13 Creatinine 0.79 Estim Creat Clear Calc 114.60 Est GFR (MDRD) Af Amer 130 Est GFR (MDRD) Non-Af 108 BUN/Creatinine Ratio 16.4 Glucose 102 Calcium 8.5 Total Bilirubin 0.20 AST 13 L ALT 24 Alkaline Phosphatase 113 Troponin I < 0.015 Total Protein 7.1 Albumin 3.9 Globulin 3.2 Albumin/Globulin Ratio 1.2 Urine Color Urine Clarity Urine pH Ur Specific [place] Urine Protein Urine Glucose (UA) Urine Ketones Urine Occult Blood Urine Nitrite Urine Bilirubin Urine Urobilinogen Ur Leukocyte Esterase Urine RBC Urine WBC Ur Squamous Epith Cells Urine Bacteria Urine Mucus Phenytoin 34.9 H* POC Glucose 02/22/18 21:49 POC Glucose 112 H Assessment/Plan All Active Problems (Last Reviewed 02/17/18 @ 09:14 by Lorrie Be) Double vision (Acute) Dilantin toxicity (Acute) Altered mental state (Acute) Chronic Problems (Last Reviewed 02/17/18 @ 09:14 by Lorrie Be) Obesity due to excess calories with serious comorbidity (Chronic) RAFAELA (obstructive sleep apnea) (Chronic) Chronic back pain (Chronic) Hyperlipidemia (Chronic) Cognitive impairment (Chronic) Depression (Chronic) Seizure disorder (Chronic) Benign prostatic hyperplasia (Chronic) Traumatic brain injury (Chronic) COPD (chronic obstructive pulmonary disease) (Chronic) Hypertension (Chronic) Plan - admit to medical surgical floor - UA positive for UTI therefore IM Rocephin given due to lack of IV access - continue routine medications when he becomes alert - SCDs for DVT prophylaxis - Rocephin 1mg q 2grs prn - hold narcotics. - This patient has a history of violence and anticipate this patient will leave AMA - CBC, BMP in am Code Visit Inpatient E&M: 54043 Init Hosp L2
[2018-02-23] MEDS: Ceftriaxone 1 GM Vial IM (01:46)
--- NOTE | 2018-02-23 03:57 | NURSING ---
PT DOES NOT KNOW MEDICATIONS. FALLING ASLEEP DURING ASSESSMENT, SO UNABLE TO ANSWER MOST QUESTIONS RE: MED HX AND CURRENT S/SX. VAPE PLACED IN LOWER MED DRAWER. PT STATES HE'LL NEED TO VAPE A COUPLE TIME A DAY WHILE HERE. EDUCATED RE: NO SMOKING POLICIES. HEARING AIDS CURRENTLY IN ERICA EARS. PT'S CELL PHONE ON BEDSIDE TABLE.
[2018-02-23 06:04] LABS: Absolute Lymphocyte Count 1.85 X10^3/ul (0.83-4.51); Absolute Neutrophil Count 1.6 X10^3/uL (2.0-7.7); Basophil# 0.01 X10^3/uL; Basophil% 0.3 % (0-1); Eosinophil# 0.05 X10^3/uL; Eosinophils% 1.3 % (0-5); Hematocrit 40.4 % (40-54); Hemoglobin 13.1 g/dl (13.0-16.5); Lymphocyte # 1.85 X10^3/ul (4.0); Lymphocyte % 49.2 % (19-41); Mean Corp Hgb Conc 32.4 g/gl (32-36); Mean Corpuscular Hgb 30.8 pg (27.0-32.0); Mean Corpuscular Volume 94.8 fL (80-94); Mean Platelet Vol. 10.2 fl (6.2-12.0); Monocyte# 0.26 X10^3/uL; Monocyte% 6.9 % (0-10); Neutrophil # 1.59 X10^3/uL (2.7-7.7); Neutrophil % 42.3 % (47-70); Platelet Count 126 K/mm3 (150-450); RBC Distribution Width CV 13.8 % (11.6-14.6); RBC Distribution Width SD 47.6 fl (35.1-43.9); Red Blood Count 4.26 M/mm3 (4.6-6.2); White Blood Count 3.8 K/mm3 (4.4-11.0)
[2018-02-23 06:06] LABS: POSITIVE COUNT NO; POSITIVE DIFFERENTIAL NO; POSITIVE MORPHOLOGY NO
[2018-02-23 06:48] LABS: Anion Gap 10 (5-15); BUN 12 mg/dL (7-18); BUN/Creat Ratio 18.7 RATIO (10-20); Calcium,Total 8.2 mg/dL (8.5-10.1); Chloride 116 mmol/L (98-107); Creatinine, Serum 0.64 mg/dL (0.70-1.30); EST Glomerular Filtration Rate 137 mL/min (>60); Est Glom Filt Rate - Afr Amer 165 mL/min (>60); Estimated Creatinine Clearance 145.65 ml/min; Glucose 106 mg/dL (74-106); Potassium 3.8 mmol/L (3.5-5.1); Sodium Level 145 mmol/L (136-145)
--- NOTE | 2018-02-23 09:23 | CASEMGMT ---
Social Work Note Per previous notes, pt lives at [facility]. SW placed a call to [facility] and left a message asking if pt is from [facility] and if he able to return at discharge. SW waiting for call back. Plan: HECTOR [place] PHLEBOTOMIST, ANIMAL ASSISTED THERAPIST
--- NOTE | 2018-02-23 09:40 | PCM.PN.HOSP ---
Patient Problems: Active and Suspected Problems (Last Reviewed 02/17/18 @ 09:14 by Lorrie Be) Altered mental state (Acute) Subjective: Feels good no complaints. Wants to go back home. Vitals/I&O's: Vital Signs Temp Pulse Resp BP Pulse Ox 36.6 C 62 16 154/74 H 94 02/23/18 03:02 02/23/18 03:02 02/23/18 03:02 02/23/18 03:02 02/23/18 03:02 Oxygen Delivery Method Room Air Weight: 123.831 kg Body Mass Index (BMI) 36.0 General: Alert, No apparent distress, - - hard of hearing. HEENT: Atraumatic, Normocephalic Neck: No Nodes, Thyroid Normal Size and Texture Lungs: Clear to auscultation, Normal air movement, No rhonchi, No wheeze Cardiovascular: Regular rate, Regular Rhythm, Normal S1, Normal S2, No murmurs Abdomen: Bowel Sounds Present, Soft, Non Tender, Non-Distended, No Hepato-splenomegaly Extremities: No edema, No Calf Tenderness Psych/Mental Status: Normal Affect, Appropriate Laboratory Results 02/23/18 05:48: WBC 3.8 L, RBC 4.26 L, Hgb 13.1, Hct 40.4, MCV 94.8 H, MCH 30.8, MCHC 32.4, RDW 13.8, RDW Differential 47.6 H, Plt Count 126 L, MPV 10.2, Immature Gran % (Auto) 0.000, Neut % (Auto) 42.3 L, Lymph % (Auto) 49.2 H, [place] % (Auto) 6.9, Eos % (Auto) 1.3, Baso % (Auto) 0.3, Absolute Neuts (auto) 1.6 L, Absolute Lymphs (auto) 1.85, Total Counted Not Reportable 02/23/18 05:48: Sodium 145, Potassium 3.8, Chloride 116 H, Carbon Dioxide 19.0 L, Anion Gap 10, BUN 12, Creatinine 0.64 L, Estim Creat Clear Calc 145.65, Est GFR (MDRD) Af Amer 165, Est GFR (MDRD) Non-Af 137, BUN/Creatinine Ratio 18.7, Glucose 106, Calcium 8.2 L Current Medications Magnesium Hydroxide (Milk Of Magnesia) 30 ml PO DAILY PRN PRN PRN Reason: Constipation Medical Necessity - Tobacco Use Smoking Status: Current every day smoker Assessment/Plan All Active Problems (Last Reviewed 02/17/18 @ 09:14 by Lorrie Be) Double vision (Acute) Dilantin toxicity (Acute) Altered mental state (Acute) 1. Somnolence looks well and is calm, at this time unclear circumstances, but possible due to too much narcotics. reviewed [place]AR[place]: new Rx for Xtampza ER 13.5mg BID on 02/18 (started on 9mg BID on 02/09) will reintroduce narcotics and observe, if does well, then I feel patient can be discharged 2. Supratherapeutic Dilantin level was on 250 BID again, recommend holding until level less than 20, then to start 100 TID 3. TBI pt very impulsive at baseline, but much more calm today than he has been in past would expect pt to regress if gets too agitated 4. UTI It appears a culture was not ordered will start cipro and treat for 5 days. Code Visit Procedures: Other Procedure - See Report - non-billable rounding.
--- NOTE | 2018-02-23 09:57 | PN_ITS ---
Patient Problems: Active and Suspected Problems (Last Reviewed 02/17/18 @ 09:14 by Lorrie Be) Altered mental state (Acute) Subjective: Feels good no complaints. Wants to go back home. Vitals/I&O's: Vital Signs Temp Pulse Resp BP Pulse Ox 36.6 C 62 16 154/74 H 94 02/23/18 03:02 02/23/18 03:02 02/23/18 03:02 02/23/18 03:02 02/23/18 03:02 Oxygen Delivery Method Room Air Weight: 123.831 kg Body Mass Index (BMI) 36.0 General: Alert, No apparent distress, - - hard of hearing. HEENT: Atraumatic, Normocephalic Neck: No Nodes, Thyroid Normal Size and Texture Lungs: Clear to auscultation, Normal air movement, No rhonchi, No wheeze Cardiovascular: Regular rate, Regular Rhythm, Normal S1, Normal S2, No murmurs Abdomen: Bowel Sounds Present, Soft, Non Tender, Non-Distended, No Hepato- splenomegaly Extremities: No edema, No Calf Tenderness Psych/Mental Status: Normal Affect, Appropriate Laboratory Results 02/23/18 05:48: WBC 3.8 L, RBC 4.26 L, Hgb 13.1, Hct 40.4, MCV 94.8 H, MCH 30.8 , MCHC 32.4, RDW 13.8, RDW Differential 47.6 H, Plt Count 126 L, MPV 10.2, Immature Gran % (Auto) 0.000, Neut % (Auto) 42.3 L, Lymph % (Auto) 49.2 H, [place] % (Auto) 6.9, Eos % (Auto) 1.3, Baso % (Auto) 0.3, Absolute Neuts (auto) 1.6 L, Absolute Lymphs (auto) 1.85, Total Counted Not Reportable 02/23/18 05:48: Sodium 145, Potassium 3.8, Chloride 116 H, Carbon Dioxide 19.0 L , Anion Gap 10, BUN 12, Creatinine 0.64 L, Estim Creat Clear Calc 145.65, Est GFR (MDRD) Af Amer 165, Est GFR (MDRD) Non-Af 137, BUN/Creatinine Ratio 18.7, Glucose 106, Calcium 8.2 L Current Medications Magnesium Hydroxide (Milk Of Magnesia) 30 ml PO DAILY PRN PRN PRN Reason: Constipation Medical Necessity - Tobacco Use Smoking Status: Current every day smoker Assessment/Plan All Active Problems (Last Reviewed 02/17/18 @ 09:14 by Lorrie Be) Double vision (Acute) Dilantin toxicity (Acute) Altered mental state (Acute) 1. Somnolence * looks well and is calm, at this time * unclear circumstances, but possible due to too much narcotics. * reviewed OARRS: new Rx for Xtampza ER 13.5mg BID on 02/18 (started on 9mg BID on 02/09) * will reintroduce narcotics and observe, if does well, then I feel patient can be discharged 2. Supratherapeutic Dilantin level * was on 250 BID * again, recommend holding until level less than 20, then to start 100 TID 3. TBI * pt very impulsive at baseline, but much more calm today than he has been in past * would expect pt to regress if gets too agitated 4. UTI * It appears a culture was not ordered * will start cipro and treat for 5 days. Code Visit Procedures: Other Procedure - See Report - non-billable rounding.
[2018-02-23] MEDS: oxyCODONE 5 MG Tablet 10 MG PO (10:56)
[2018-02-23] MEDS: Docusate Sodium 100 MG Capsule PO (11:20)
[2018-02-23] MEDS: Topiramate 200 MG Tablet PO (11:20)
[2018-02-23] MEDS: Aspirin E.C. 81 MG Tablet PO (11:20)
[2018-02-23] MEDS: Lisinopril 20 MG Tablet PO (11:20)
[2018-02-23] MEDS: amLODIPine 5 MG Tablet PO (11:20)
[2018-02-23] MEDS: Tamsulosin HCl 0.4 MG Capsule PO (11:20)
[2018-02-23] MEDS: ARIPiprazole 5 MG Tablet 15 MG PO (11:20)
[2018-02-23] MEDS: levETIRAcetam 750 MG Tablet 1500 MG PO (11:21)
[2018-02-23] MEDS: Verapamil SR 240 MG Tablet 120 MG PO (13:18)
[2018-02-23] MEDS: Gabapentin 800 MG Tablet PO (13:19)
[2018-02-23] MEDS: Venlafaxine HCl 75 MG Tablet PO (13:19)
[2018-02-23] MEDS: Divalproex Sodium 250 MG Tablet PO (13:19)
--- NOTE | 2018-02-23 13:22 | PCM.DC ---
- Discharge Diagnoses Current Active Problems: Current Active and Chronic Problems (Last Reviewed 02/17/18 @ 09:14 by Lorrie eB) Altered mental state (Acute) You will use the following diet at home:: No restrictions Your food should be the consistency of: Regular Discharge Activity: Return to Normal Activity Call your doctor if you observe: Dizziness, Fainting spells, - - worsening confusion. Allergies/Adverse Reactions: Allergies No Known Allergies Allergy (Verified 02/22/18 21:49) Medications to take at Discharge amlodipine 5 mg tablet 5 mg PO DAILY 01/26/18 aripiprazole 15 mg tablet 15 mg PO DAILY 01/26/18 aspirin 81 mg tablet,delayed release 81 mg PO DAILY 01/26/18 atorvastatin 40 mg tablet 40 mg PO QHS 01/26/18 cholecalciferol (vitamin D3) 50,000 unit capsule 150,000 unit PO AGGARWAL 01/26/18 docusate sodium 100 mg capsule 100 mg PO BID 01/26/18 fluticasone 250 mcg-salmeterol 50 mcg/dose blistr powdr for inhalation 1 inh INHALATION BID 01/26/18 gabapentin 800 mg tablet 800 mg PO TID tab 01/26/18 ipratropium-albuterol 0.5 mg-3 mg(2.5 mg base)/3 mL nebulization soln 3 ml INHALATION Q6H PRN 01/26/18 levetiracetam 500 mg tablet 2,000 mg PO HS tab 01/26/18 levetiracetam 750 mg tablet 1,500 mg PO DAILY tab 01/26/18 lisinopril 10 mg tablet 20 mg PO DAILY 01/26/18 loratadine 10 mg tablet 10 mg PO QHS 01/26/18 omeprazole 20 mg capsule,delayed release 20 mg PO DAILY 01/26/18 oxycodone 5 mg capsule 10 mg PO BID PRN PRN cap 01/26/18 tamsulosin 0.4 mg capsule 0.4 mg PO DAILY 01/26/18 topiramate 200 mg tablet 200 mg PO BID 01/26/18 trazodone 50 mg tablet 50 mg PO QHS 01/26/18 venlafaxine ER 75 mg capsule,extended release 24 hr 75 mg PO BID cap 01/26/18 verapamil ER 120 mg 24 hr capsule,extended release 120 mg PO QDAY 01/26/18 zolpidem 10 mg tablet 10 mg PO QHS PRN 01/26/18 Melatonin/Pyridoxine HCl (B6) [Melatonin 3 mg Tablet] 6 mg PO QHS 01/28/18 Acetaminophen [Tylenol] 1,000 mg PO TID PRN PRN 01/30/18 Lorazepam [Ativan] 2 mg RECTAL PRN PRN 02/13/18 Oxycodone Myristate [Xtampza ER] 13.5 mg PO BID 02/13/18 Divalproex Sodium [Depakote] 250 mg PO TIDCM 02/23/18 Fluticasone/Salmeterol [Advair 250/50 Mcg Diskus] 1 puff INHALATION BID 02/23/18 Phenytoin Sodium Extended [Dilantin] 100 mg PO TID #0 02/23/18 Tamsulosin HCl [Flomax] 0.4 mg PO DAILY capsule 02/23/18 Primary Care Physician: Karma Barnes, COMBO WELDER-C [Primary Care Provider] - Within 2 Weeks Proposed Discharge Date: 02/23/18
--- NOTE | 2018-02-23 13:25 | DS.PCM_ITS ---
Discharge Date and Diagnosis - Problem List Patient Problems: Active and Suspected Problems (Last Reviewed 02/17/18 @ 09:14 by Lorrie Be) Altered mental state (Acute) Date of Admission: 02/23/18 Date of Discharge: 02/23/18 - Primary Discharge Diagnosis Active and Suspected Problems (Last Reviewed 02/17/18 @ 09:14 by Lorrie Be) Altered mental state (Acute) - Secondary Discharge Diagnosis Chronic Problems (Last Reviewed 02/17/18 @ 09:14 by Lorrie Be) Obesity due to excess calories with serious comorbidity (Chronic) RAFAELA (obstructive sleep apnea) (Chronic) Chronic back pain (Chronic) Hyperlipidemia (Chronic) Cognitive impairment (Chronic) Depression (Chronic) Seizure disorder (Chronic) Benign prostatic hyperplasia (Chronic) Traumatic brain injury (Chronic) COPD (chronic obstructive pulmonary disease) (Chronic) Hypertension (Chronic) Hospital Course and Treatment Imaging Results: Clinical Impression(s) from Imaging Studies Brain CT 02/22/18 22:12 Chest X-Ray 02/22/18 22:34 Operations: None Procedures: None Summary of Care Provided: The patient is a 58 year old M found difficult to arouse. 1. Somnolence * looks well and is calm, at this time * unclear circumstances, but possible due to too much narcotics. * reviewed [place]ARRS: new Rx for Xtampza ER 13.5mg BID on 02/18 (started on 9mg BID on 02/09) * will reintroduce narcotics and observe, if does well, then I feel patient can be discharged 2. Supratherapeutic Dilantin level * was on 250 BID * again, recommend holding until level less than 20, then to start 100 TID 3. TBI * pt very impulsive at baseline, but much more calm today than he has been in past * would expect pt to regress if gets too agitated 4. UTI * It appears a culture was not ordered * will start cipro and treat for 5 days.[] Discharge Diet: No Restrictions Discharge Activity: Return to Normal Activity Call your doctor if you observe: Dizziness, Fainting spells, - - worsening confusion. Home Medications: Medications to take at Discharge amlodipine 5 mg tablet 5 mg PO DAILY 01/26/18 aripiprazole 15 mg tablet 15 mg PO DAILY 01/26/18 aspirin 81 mg tablet,delayed release 81 mg PO DAILY 01/26/18 atorvastatin 40 mg tablet 40 mg PO QHS 05/29/18 cholecalciferol (vitamin D3) 50,000 unit capsule 150,000 unit PO AGGARWAL 01/26/18 docusate sodium 100 mg capsule 100 mg PO BID 01/26/18 fluticasone 250 mcg-salmeterol 50 mcg/dose blistr powdr for inhalation 1 inh INHALATION BID 01/26/18 gabapentin 800 mg tablet 800 mg PO TID tab 01/26/18 ipratropium-albuterol 0.5 mg-3 mg(2.5 mg base)/3 mL nebulization soln 3 ml INHALATION Q6H PRN 01/26/18 levetiracetam 500 mg tablet 2,000 mg PO HS tab 01/26/18 levetiracetam 750 mg tablet 1,500 mg PO DAILY tab 01/26/18 lisinopril 10 mg tablet 20 mg PO DAILY 01/26/18 loratadine 10 mg tablet 10 mg PO QHS 01/26/18 omeprazole 20 mg capsule,delayed release 20 mg PO DAILY 01/26/18 oxycodone 5 mg capsule 10 mg PO BID PRN PRN cap 01/26/18 tamsulosin 0.4 mg capsule 0.4 mg PO DAILY 01/26/18 topiramate 200 mg tablet 200 mg PO BID 01/26/18 trazodone 50 mg tablet 50 mg PO QHS 01/26/18 venlafaxine ER 75 mg capsule,extended release 24 hr 75 mg PO BID cap 01/26/18 verapamil ER 120 mg 24 hr capsule,extended release 120 mg PO QDAY 01/26/18 zolpidem 10 mg tablet 10 mg PO QHS PRN 01/26/18 Melatonin/Pyridoxine HCl (B6) [Melatonin 3 mg Tablet] 6 mg PO QHS 01/28/18 Acetaminophen [Tylenol] 1,000 mg PO TID PRN PRN 01/30/18 Lorazepam [Ativan] 2 mg RECTAL PRN PRN 02/13/18 Oxycodone Myristate [Xtampza ER] 13.5 mg PO BID 02/13/18 Divalproex Sodium [Depakote] 250 mg PO TIDCM 02/23/18 Fluticasone/Salmeterol [Advair 250/50 Mcg Diskus] 1 puff INHALATION BID Phenytoin Sodium Extended [Dilantin] 100 mg PO TID #0 02/23/18 Tamsulosin HCl [Flomax] 0.4 mg PO DAILY capsule 02/23/18 Primary Care Physician: Karma Barnes NP-C [Primary Care Provider] - Within 2 Weeks Disposition: Home Minutes spent on discharge:: 35 Patient Condition:: Fair Medical Necessity - Tobacco Use Smoking Status: Current every day smoker Meaningful Use Info Meaningful Use Diagnoses (Choose all that apply): None applicable Code Visit OBSV E&M: 55086 Observation care discharge
--- NOTE | 2018-02-23 14:20 | NURSING ---
Report called to Avis at [facility].
--- NOTE | 2018-02-23 15:03 | CASEMGMT ---
Addendum entered by Mabel Ohara 02/23/18 15:25: Note, the time on this note is entered wrong. Time should be 14:04pm. Original Note: Social Work Note SW spoke with Ani at [facility]. SW informed Ani that pt is ready for discharge today. Ani confirms that pt is able to return to [facility] at discharge. Ani states that pt is able to return at discharge and that transportation will need to be set up as [facility] is not available at this time to transport pt. SW updated pt of this. Pt is agreeable to this worker setting up transportation and would like to be transported via wheelchair. SW set up transportation through [facility] via wheelchair for 2:30pm. SW updated ADRIANA Chun of this, elementary secretary Florinda of this, and placed a call to [facility] and updated Aura of transportation time. Transportation form on chart and copy in pt's chart. It should be noted that on pt's demographics he has a nurse from [facility] listed as a contact and a named Sunitha but both numbers listed for contacts are [facility] numbers. [phone] and [phone]. Pt denied wanting this worker to call any family or friends and SW unable to due to pt's demographics having both numbers listed for [facility]. Plan: Discharge to [facility] today through [facility] via wheelchair for 2:30pm. Mabel Ohara ADULT HIGH SCHOOL INSTRUCTOR, SUPERVISOR SAWING AND ASSEMBLY
== END 2018-02-23 12:35 | disposition home or self-care (01) ==
LOC: ED 22:17 → MS3 02-23 01:50
PROVIDERS: Admitting Provider Family Medicine; Emergency Provider Emergency Medicine; Family Provider Nurse Practitioner Adult Health; PCP Nurse Practitioner Adult Health
DX: R41.82 Altered mental status, unspecified (principal); G47.33 Obstructive sleep apnea (adult) (pediatric); E78.5 Hyperlipidemia, unspecified; G89.29 Other chronic pain; M54.9 Dorsalgia, unspecified; F32.9 Major depressive disorder, single episode, unspecified; N40.0 Benign prostatic hyperplasia without lower urinary tract symptoms; J44.9 Chronic obstructive pulmonary disease, unspecified; I10 Essential (primary) hypertension; Z87.820 Personal history of traumatic brain injury; G40.909 Epilepsy, unspecified, not intractable, without status epilepticus; N39.0 Urinary tract infection, site not specified; T42.0X5A Adverse effect of hydantoin derivatives, initial encounter; E66.9 Obesity, unspecified; Z68.36 Body mass index [BMI] 36.0-36.9, adult; Z79.899 Other long term (current) drug therapy; Z79.51 Long term (current) use of inhaled steroids; Z79.82 Long term (current) use of aspirin; Z71.3 Dietary counseling and surveillance; E11.9 Type 2 diabetes mellitus without complications; F17.200 Nicotine dependence, unspecified, uncomplicated
CPT/HCPCS: 36415; 36600; 70450; 71045; 80048; 80053; 80185; 81001; 82803; 82962; 84484; 85025; 93005; 96372; 99218; 99284; A4216; G0378

== ENCOUNTER 2018-03-06 05:29 | Emergency (ER) | payer MEDICARE, SELFPAY ==
[2018-03-06 05:30] VITALS: BP 166/88; PULSE 79; RESP 24; TEMP 36.7; O2SAT 97; BMI 35.5
--- NOTE | 2018-03-06 05:39 | ED.RN ---
THIS NURSE SPOKE WITH AUGUSTIN MCGRAW NURSE AT [facility]. LAST PHENYTOIN LEVEL ON 02/26 WAS 21.3
--- NOTE | 2018-03-06 06:08 | ED.DCSUM_ITS ---
- ER Visit Summary Date of Service: 03/06/18 Chief Complaint: Seizure History of Present Illness: The patient is a 58 M presenting after seizure. Patient states a nurse at his assisted living witnessed him having a seizure. Last seizure was a couple of days ago. He currently takes Dilantin. He complains of mild headache. He states he typically gets headaches after his seizure. He denies injury. He denies other complaints. Physical Examination: Vitals are stable. Patient is afebrile. Alert no acute distress. HEENT exam is unremarkable. Neck is supple, nontender Lungs are clear and equal bilaterally. Heart is regular rate and rhythm. Abdomen is soft nontender nondistended. Extremities are unremarkable. Skin is warm and dry. No focal neurologic deficit. Remainder of exam is unremarkable. Emergency Department Course and Treatment: Patient is given Tylenol with improvement. Depakote level is 55. Dilantin level 6.4. Patient states he has scheduled follow-up and a scheduled EEG for Thursday. He is requesting to go home. He is advised to return to ED for any worsening complaints. Disposition: Discharge home Impression: Seizure, history of seizure disorder This note was generated with [employer] dictation software. It may contain incorrect words, spelling, and punctuation that were not noted in review of the chart prior to signing ED Disposition - Plan for ED Patient: Chief Complaint: Seizure Referrals: Karma Barnes NP-C [Primary Care Provider] -
[2018-03-06] MEDS: Acetaminophen 500 MG Tablet 1000 MG PO (06:22)
[2018-03-06 06:50] LABS: Phenytoin (Dilantin) Level 6.4 mL (10.0-20.0)
[2018-03-06 06:51] LABS: Valproic Acid (Depakene) Level 55 ug/mL (50-100)
--- NOTE | 2018-03-06 06:58 | ED.DEP ---
ED Disposition - Plan for ED Patient: Chief Complaint: Seizure Instructions: ED Seizure Recurrent Referrals: Karma Barnes, CONTROL TECHNICIAN-C [Primary Care Provider] -
--- NOTE | 2018-03-06 06:59 | DCINST.ED_ITS ---
ED Disposition - Plan for ED Patient: Chief Complaint: Seizure Instructions: ED Seizure Recurrent Referrals: Karma Barnes, PIERCING MACHINE OPERATOR-C [Primary Care Provider] -
[2018-03-06 07:40] VITALS: BP 157/77; PULSE 80; RESP 16; O2SAT 98
== END 2018-03-06 07:41 | disposition home or self-care (01) ==
PROVIDERS: Emergency Provider Emergency Medicine; Family Provider Nurse Practitioner Adult Health; PCP Nurse Practitioner Adult Health
DX: G40.909 Epilepsy, unspecified, not intractable, without status epilepticus (principal); Z79.899 Other long term (current) drug therapy
CPT/HCPCS: 80164; 80185; 99284

== ENCOUNTER 2018-03-12 18:20 | Emergency (ER) | payer MEDICARE, SELFPAY ==
[2018-03-12 18:23] VITALS: BP 127/68; PULSE 98; RESP 18; TEMP 36.8; O2SAT 96; BMI 36.8
[2018-03-12] MEDS: oxyCODONE 5 MG Tablet 10 MG PO (19:08)
[2018-03-12] MEDS: LORazepam 2 MG/ML Syringe 1 MG IV (19:08)
[2018-03-12 19:22] LABS: Anion Gap 5 (5-15); BUN 14 mg/dL (7-18); BUN/Creat Ratio 18.2 RATIO (10-20); Calcium,Total 8.5 mg/dL (8.5-10.1); Chloride 111 mmol/L (98-107); Creatinine, Serum 0.77 mg/dL (0.70-1.30); EST Glomerular Filtration Rate 111 mL/min (>60); Est Glom Filt Rate - Afr Amer 135 mL/min (>60); Estimated Creatinine Clearance 121.06 ml/min; Glucose 157 mg/dL (74-106); Potassium 3.7 mmol/L (3.5-5.1); Sodium Level 144 mmol/L (136-145)
[2018-03-12 19:40] LABS: Phenytoin (Dilantin) Level 8.5 mL (10.0-20.0); Valproic Acid (Depakene) Level 43 ug/mL (50-100)
[2018-03-12 20:28] VITALS: PULSE 78; RESP 16; O2SAT 98
--- NOTE | 2018-03-12 21:08 | ED.DCSUM_ITS ---
- ER Visit Summary Date of Service: 03/12/18 Chief Complaint: Seizure History of Present Illness: The patient is a [address] Booker and Dr. Rodriguez. He is a poor informant. Per notes from [facility] the patient had 2 seizures today. Each of these lasted approximately 1 minute and there was 1 minute in between them. He did not have a postictal episode. Currently he complains of headache that stated 10 severity and states that he gets these after his seizures. Review of systems: General: No fever, chills, cold sweats. Cardiovascular: No chest pain, palpitations. Respiratory: No cough, shortness of breath, dyspnea on exertion. Gastrointestinal: No abdominal pain, nausea, vomiting, diarrhea, melena, or hematochezia. Genitourinary: No dysuria, frequency, hematuria. Skin: No rash. Neuro: No numbness, weakness. Physical Examination: Vitals: Stable. Afebrile. General: Well-nourished and well-developed. Head: Normocephalic atraumatic. Neck: Supple, no lymphadenopathy. No JVD. Nontender. Cardiovascular: Regular rate and rhythm. No murmurs. Respiratory: No respiratory distress. Clear to auscultation bilaterally. Abdominal: Soft, nontender, nondistended, normal bowel sounds. No guarding, rebound, or peritoneal signs. Back: Nontender. Extremities: Nontender, no edema. Skin: Normal color, no rash. Neurologic: Alert and oriented ?3. Cranial nerves II through XII are intact. Normal strength and sensation. Psych: Normal affect. Test Results: BMP is more for chloride of 111 and glucose 157. Dilantin level is 8.5. Depakote level is 43. Emergency Department Course and Treatment: Patient was treated the dose of Ativan IV and Depakote p.o. Also complained of neck and back pain that he reports is chronic and was given a dose of oxycodone p.o. Treatment Plan: Patient was discussed with Dr. Rodriguez who asked that we change his Depakote from 250 mg p.o. 3 times daily to Depakote ER 500 mg p.o. twice daily. Have him follow-up in 1-2 weeks for another exam. Return to the emergency department for any worsening symptoms. Disposition: To home in improved and stable condition. Impression: 1. Breakthrough seizure. 2. Subtherapeutic Depakote level. 3. Subtherapeutic Dilantin level. This note was generated with [employer] dictation software. It may contain incorrect words, spelling, and punctuation that were not noted in review of the chart prior to signing ED Disposition - Plan for ED Patient: Disposition: Home or Assisted Living Chief Complaint: Seizure Instructions: ED Seizure Recurrent Prescriptions: Divalproex Sodium [Depakote ER] 500 mg PO BID #60 tablet Referrals: Paul Rodriguez MD [STAFF PHYSICIAN] - 1-2 Weeks
[2018-03-12 21:37] VITALS: BP 112/57; PULSE 79; RESP 18; O2SAT 100
[2018-03-12] MEDS: Divalproex (ER) 500 MG Tablet PO (21:39)
== END 2018-03-12 21:53 | disposition home or self-care (01) ==
PROVIDERS: Emergency Provider Emergency Medicine; Family Provider Nurse Practitioner Adult Health; PCP Nurse Practitioner Adult Health
DX: Z79.899 Other long term (current) drug therapy (principal); R56.9 Unspecified convulsions; F17.290 Nicotine dependence, other tobacco product, uncomplicated; Z87.820 Personal history of traumatic brain injury; Z79.51 Long term (current) use of inhaled steroids; Z79.891 Long term (current) use of opiate analgesic
CPT/HCPCS: 80048; 80164; 80185; 96374; 99285; A4216

== ENCOUNTER 2018-03-14 20:52 | Emergency (ER) | payer MEDICARE, SELFPAY ==
[2018-03-14 20:53] VITALS: BP 136/70; PULSE 97; RESP 18; TEMP 36.9; O2SAT 98; BMI 38.5
--- NOTE | 2018-03-14 22:15 | ED.DCSUM_ITS ---
- ER Visit Summary Date of Service: 03/14/18 Chief Complaint: Seizure History of Present Illness: The patient is a 58 M with a known history of a seizure disorder on Keppra Depakote and Dilantin. He has had multiple recent ER visits for seizures. On his last visit he was subtherapeutic on both Depakote and Dilantin levels. He was discussed with his neurologist and his Depakote dose was increased. Patient currently has no complaints. He states that he was told that he had several seizures prior to transfer here. He denies recent illness such as fevers nausea vomiting diarrhea. Physical Examination: Afebrile vitals are normal Patient resting comfortably in no distress No focal or lateralizing neurological deficits Moist mucous membranes Heart regular rate and rhythm Lungs are clear Abdomen soft Test Results: Valproic acid and Dilantin levels are therapeutic. Emergency Department Course and Treatment: Patient has been observed here for about an hour and 45 minutes. He has had no further seizure activity. He was given his usual home medications which were actually sent with him. His valproic acid and phenytoin levels are therapeutic. No indication for hospitalization or further workup. He has scheduled follow-up with his neurologist and also recently had an EEG. Patient understands return for new or worsening symptoms and was discharged home. Treatment Plan: [] Disposition: Discharge Impression: Seizures This note was generated with [employer] dictation software. It may contain incorrect words, spelling, and punctuation that were not noted in review of the chart prior to signing ED Disposition - Plan for ED Patient: Chief Complaint: Seizure Referrals: Karma Barnes, INDUSTRIAL GAS SERVICE HELPER-C [Primary Care Provider] -
[2018-03-14 22:26] LABS: Phenytoin (Dilantin) Level 10.2 mL (10.0-20.0); Valproic Acid (Depakene) Level 52 ug/mL (50-100)
--- NOTE | 2018-03-14 22:33 | ED.DEP ---
ED Disposition - Plan for ED Patient: Chief Complaint: Seizure Instructions: ED Seizure Recurrent Referrals: Karma Barnes, DIRECTOR EAST COAST SALES-C [Primary Care Provider] -
--- NOTE | 2018-03-14 22:34 | DCINST.ED_ITS ---
ED Disposition - Plan for ED Patient: Chief Complaint: Seizure Instructions: ED Seizure Recurrent Referrals: Karma Barnes, SHUTDOWN PLANNER-C [Primary Care Provider] -
[2018-03-14 23:15] VITALS: BP 100/55; PULSE 88; RESP 16; O2SAT 97
== END 2018-03-14 23:17 | disposition home or self-care (01) ==
LOC: ED 21:20
PROVIDERS: Emergency Provider Emergency Medicine; Family Provider Nurse Practitioner Adult Health; PCP Nurse Practitioner Adult Health
DX: G40.909 Epilepsy, unspecified, not intractable, without status epilepticus (principal); Z79.899 Other long term (current) drug therapy; Z87.820 Personal history of traumatic brain injury
CPT/HCPCS: 80164; 80185; 99284

== ENCOUNTER 2018-03-15 13:19 | Emergency (ER) | payer MEDICARE, SELFPAY ==
[2018-03-15 13:20] VITALS: BP 124/72; PULSE 98; RESP 18; TEMP 36.7; O2SAT 98; BMI 36.8
[2018-03-15 14:05] VITALS: BP 97/67; PULSE 83; RESP 13; O2SAT 96
[2018-03-15 15:47] LABS: Absolute Lymphocyte Count 1.79 X10^3/ul (0.83-4.51); Absolute Neutrophil Count 2.6 X10^3/uL (2.0-7.7); Basophil# 0.02 X10^3/uL; Basophil% 0.4 % (0-1); Eosinophil# 0.11 X10^3/uL; Eosinophils% 2.3 % (0-5); Hematocrit 44.6 % (40-54); Hemoglobin 14.7 g/dl (13.0-16.5); Lymphocyte # 1.79 X10^3/ul (4.0); Lymphocyte % 36.7 % (19-41); Mean Corpuscular Hgb 31.5 pg (27.0-32.0); Mean Corpuscular Volume 95.7 fL (80-94); Mean Platelet Vol. 10.4 fl (6.2-12.0); Monocyte# 0.37 X10^3/uL; Monocyte% 7.6 % (0-10); Neutrophil # 2.59 X10^3/uL (2.7-7.7); Platelet Count 134 K/mm3 (150-450); RBC Distribution Width CV 13.5 % (11.6-14.6); Red Blood Count 4.66 M/mm3 (4.6-6.2); White Blood Count 4.9 K/mm3 (4.4-11.0)
[2018-03-15 15:50] LABS: POSITIVE COUNT NO; POSITIVE DIFFERENTIAL NO; POSITIVE MORPHOLOGY NO
--- NOTE | 2018-03-15 15:53 | ED.RN ---
pt reports need to urinate. pt keeps falling asleep mid conversation, even when being poked for iv start. this rn educates pt his options are urinal or bsc for safety. pt refuses. i will just wait until i go home. this rn educates pt to ring call guy if need to urinate increases, and staff would assist pt to bsc. pt verbalizes understanding.
[2018-03-15 15:57] LABS: Anion Gap 8 (5-15); BUN 16 mg/dL (7-18); BUN/Creat Ratio 20.9 RATIO (10-20); Calcium,Total 8.7 mg/dL (8.5-10.1); Chloride 111 mmol/L (98-107); Creatinine, Serum 0.77 mg/dL (0.70-1.30); EST Glomerular Filtration Rate 112 mL/min (>60); Est Glom Filt Rate - Afr Amer 135 mL/min (>60); Estimated Creatinine Clearance 121.06 ml/min; Glucose 107 mg/dL (74-106); Potassium 3.9 mmol/L (3.5-5.1); Sodium Level 145 mmol/L (136-145)
[2018-03-15 16:15] VITALS: BP 124/72; PULSE 84; RESP 14; O2SAT 98
--- NOTE | 2018-03-15 16:30 | ED.VISSUMM ---
- ER Visit Summary Date of Service: 03/15/18 Chief Complaint: Seizures History of Present Illness: The patient is a 58 M with history of seizure disorder. Patient was sent in by [facility] for increased frequency of seizures. He was seen yesterday for the same. His Dilantin and Depakote levels were therapeutic at that time. His dosing on his medications was just increased 3 days ago. Patient has no complaints and wants to go home. Physical Examination: Vital signs are unremarkable. Patient sitting upright in bed. He is alert and talkative. Head neck examination unremarkable. Heart is regular rate and rhythm. Lung sounds are clear. Abdomen is soft nontender. Neuro exam reveals no focal deficits. Test Results: CBC is significant for platelet count of 134,000. Chemistry studies unremarkable. Dilantin level returned at 13.3 and Depakote level of 52. Emergency Department Course and Treatment: Patient has been in the ER for the past 4 hours without sign of seizure. He will be discharged back to his assisted living center. He has follow-up scheduled with his neurologist. Treatment Plan: [] Disposition: Discharge Impression: Seizure disorder with reported seizure This note was generated with [employer] dictation software. It may contain incorrect words, spelling, and punctuation that were not noted in review of the chart prior to signing ED Disposition - Plan for ED Patient: Chief Complaint: Seizure Referrals: Karma Barnes NP-C [Primary Care Provider] -
[2018-03-15 17:08] LABS: Phenytoin (Dilantin) Level 13.3 mL (10.0-20.0); Valproic Acid (Depakene) Level 52 ug/mL (50-100)
--- NOTE | 2018-03-15 17:13 | ED.RN ---
[facility] calls to check on pt. pt resting, awaitng re-eval by . informed lab work wnl. will continue to monitor.
--- NOTE | 2018-03-15 17:22 | ED.DEP ---
ED Disposition - Plan for ED Patient: Disposition: Home or Assisted Living Chief Complaint: Seizure Instructions: ED Seizure Recurrent Referrals: Paul Rodriguez MD [STAFF PHYSICIAN] - Keep Adalid appointment
[2018-03-15 17:41] VITALS: BP 105/75; PULSE 74; RESP 14; O2SAT 96
[2018-03-15] MEDS: oxyCODONE 5 MG Tablet 10 MG PO (18:24)
== END 2018-03-15 18:55 | disposition home or self-care (01) ==
PROVIDERS: Emergency Provider Emergency Medicine; Family Provider Nurse Practitioner Adult Health; PCP Nurse Practitioner Adult Health
DX: G40.909 Epilepsy, unspecified, not intractable, without status epilepticus (principal); J44.9 Chronic obstructive pulmonary disease, unspecified; I10 Essential (primary) hypertension; E78.00 Pure hypercholesterolemia, unspecified; N40.0 Benign prostatic hyperplasia without lower urinary tract symptoms; Z87.820 Personal history of traumatic brain injury; Z79.82 Long term (current) use of aspirin; Z79.51 Long term (current) use of inhaled steroids; Z79.891 Long term (current) use of opiate analgesic; Z79.899 Other long term (current) drug therapy
CPT/HCPCS: 80048; 80164; 80185; 85025; 99285; A4216

== ENCOUNTER 2018-03-26 21:23 | Emergency (ER) | payer MEDICARE, SELFPAY ==
[2018-03-26 21:26] VITALS: BP 135/68; PULSE 86; RESP 20; TEMP 36.7; O2SAT 98; BMI 35.4
--- NOTE | 2018-03-26 21:34 | ED.RN ---
LEFT MESSAGE FOR NURSE AT [facility]
--- NOTE | 2018-03-26 22:39 | ED.VISSUMM ---
- ER Visit Summary Date of Service: 03/26/18 Chief Complaint: Seizure History of Present Illness: The patient is a 58 M brought [facility] for 3 seizures today. History of seizures secondary to head injury 1988. Seizure-free for 8 years and had recurrent ones. Multiple medications of Keppra, Dilantin, Topamax, Depakote. Last breakthrough seizure little over week ago. He states a week ago since that his Depakote was increased to 1000 mg twice daily, Dilantin decreased to 250 mg twice daily. He is followed by Dr. Rodriguez. States has mild cough for the past week. States he is compliant with medications. No recent vomiting or diarrhea. Currently back to baseline. Denies tongue biting or any incontinence of urine or stool. Physical Examination: General: Alert and oriented ?3, no acute distress HEENT: Normocephalic, atraumatic. Moist mucosa membranes. No tongue abrasion. Neck: supple, nontender. Cardiovascular: Regular rate and rhythm, no murmurs Respiratory: Normal breath sounds, symmetric, no distress Abdomen: Soft, nontender, nondistended Extremities: Nontender, no edema, pulses intact ?4 Neuro: no focal neurological deficits. Test Results: BGT 128. Emergency Department Course and Treatment: Patient vitals stable, no focal neurological deficits. He is back to baseline. Breakthrough seizure a week ago, his medications is being adjusted. He states his upcoming 72 hour EEG by neurology. Discussed with patient with him have been 3 episodes a day, recommended checking lab work possible chest x-ray, however he states this was done last week. He did not want additional blood work or testing. He did agree with the blood glucose which was 128. For with patient back to baseline, request being discharged back to this facility. Be discharged back with instructions to return if recurrent symptoms. He understands and agrees with plan. Treatment Plan: [] Disposition: Discharge Impression:Breakthrough seizure This note was generated with [employer] dictation software. It may contain incorrect words, spelling, and punctuation that were not noted in review of the chart prior to signing ED Disposition - Plan for ED Patient: Disposition: Home or Assisted Living Chief Complaint: Seizure Diagnosis: Breakthrough seizure Instructions: ED Seizure Recurrent Referrals: Karma Barnes, HEALTH SUPPORT SPECIALIST-C [Primary Care Provider] - Paul Rodriguez MD [STAFF PHYSICIAN] - 3-5 Days
--- NOTE | 2018-03-26 22:43 | ED.DCSUM_ITS ---
- ER Visit Summary Date of Service: 03/26/18 Chief Complaint: Seizure History of Present Illness: The patient is a 58 M [facility] for 3 seizures today. History of seizures secondary to head injury 1988. Seizure-free for 8 years and had recurrent ones. Multiple medications of Keppra, Dilantin, Topamax, Depakote. Last breakthrough seizure little over week ago. He states a week ago since that his Depakote was increased to 1000 mg twice daily, Dilantin decreased to 250 mg twice daily. He is followed by Dr. Rodriguez. States has mild cough for the past week. States he is compliant with medications. No recent vomiting or diarrhea. Currently back to baseline. Denies tongue biting or any incontinence of urine or stool. Physical Examination: General: Alert and oriented ?3, no acute distress HEENT: Normocephalic, atraumatic. Moist mucosa membranes. No tongue abrasion. Neck: supple, nontender. Cardiovascular: Regular rate and rhythm, no murmurs Respiratory: Normal breath sounds, symmetric, no distress Abdomen: Soft, nontender, nondistended Extremities: Nontender, no edema, pulses intact ?4 Neuro: no focal neurological deficits. Test Results: BGT 128. Emergency Department Course and Treatment: Patient vitals stable, no focal neurological deficits. He is back to baseline. Breakthrough seizure a week ago , his medications is being adjusted. He states his upcoming 72 hour EEG by neurology. Discussed with patient with him have been 3 episodes a day, recommended checking lab work possible chest x-ray, however he states this was done last week. He did not want additional blood work or testing. He did agree with the blood glucose which was 128. For with patient back to baseline, request being discharged back to this facility. Be discharged back with instructions to return if recurrent symptoms. He understands and agrees with plan. Treatment Plan: [] Disposition: Discharge Impression:Breakthrough seizure This note was generated with [employer] dictation software. It may contain incorrect words, spelling, and punctuation that were not noted in review of the chart prior to signing ED Disposition - Plan for ED Patient: Disposition: Home or Assisted Living Chief Complaint: Seizure Diagnosis: Breakthrough seizure Instructions: ED Seizure Recurrent Referrals: Karma Barnes, COLLISION REPAIR TECHNICIAN-C [Primary Care Provider] - Paul Rodriguez MD [STAFF PHYSICIAN] - 3-5 Days
--- NOTE | 2018-03-26 22:45 | ED.RN ---
[facility] CONTACTED FOR RIDE TO ASSISTED LIVING. CREW COMING FROM [facility]
[2018-03-26 22:46] LABS: Bedside Glucose 128 mg/dL (70-110)
[2018-03-27 00:05] VITALS: RESP 18
== END 2018-03-26 23:40 | disposition home or self-care (01) ==
PROVIDERS: Emergency Provider Emergency Medicine; Family Provider Nurse Practitioner Adult Health; PCP Nurse Practitioner Adult Health
DX: R56.9 Unspecified convulsions (principal); Z79.899 Other long term (current) drug therapy
CPT/HCPCS: 82962; 99284

== ENCOUNTER 2018-04-07 04:01 | Emergency (ER) | payer MEDICARE, SELFPAY ==
[2018-04-07 04:02] VITALS: BP 136/75; PULSE 79; RESP 16; TEMP 36.8; O2SAT 99; BMI 38.9
--- NOTE | 2018-04-07 05:36 | ED.DCSUM_ITS ---
- ER Visit Summary Date of Service: 04/07/18 Chief Complaint: Back pain History of Present Illness: The patient is a 58 M presenting with back pain. He states he fell yesterday. He has a history of chronic back pain and he states this worsened his pain. He has a history of seizure disorder. He did not hit his head or lose consciousness when he fell. Denies other complaints. Physical Examination: Vitals are stable. Patient is afebrile. Alert no acute distress. HEENT exam is unremarkable. Neck is supple. Lungs are clear and equal bilaterally. Heart is regular rate and rhythm. Abdomen is soft nontender nondistended. Back: Diffuse lumbar tenderness Extremities are unremarkable. Skin is warm and dry. No focal neurologic deficit. Remainder of exam is unremarkable. Emergency Department Course and Treatment: While in the emergency department patient had a seizure. Labs were checked. Dilantin level is less than 0.5. Depakote level is 97. Attempting to obtain a medication list from his shelter facility. Medication list was obtained and patient was taken off Dilantin on March 29. Lumbar x-ray shows no fracture. He is feeling improved in the emergency department on re-evaluation. He will be observed and if he has no further seizure activity he will be discharged. Disposition: pending Impression: Chronic back pain, fall, seizure, history of seizure disorder This note was generated with [employer] dictation software. It may contain incorrect words, spelling, and punctuation that were not noted in review of the chart prior to signing ED Disposition - Plan for ED Patient: Chief Complaint: Back Instructions: ED Neck Back Pain General, ED Seizure Recurrent Referrals: Karma Barnes, OUTBOARD MOTORBOAT RIGGER-C [Primary Care Provider] -
[2018-04-07 06:24] LABS: Phenytoin (Dilantin) Level < 0.5 mL (10.0-20.0); Valproic Acid (Depakene) Level 97 ug/mL (50-100)
--- NOTE | 2018-04-07 06:54 | ED.RN ---
ATTEMPTED TO CALL [facility] REGARDING PT'S MEDICATIONS. PT ARRIVED WITHOUT PAPERWORK OR A MED LIST. LEFT A MESSAGE FOR THEM TO RETURN OUT CALL.
--- NOTE | 2018-04-07 07:00 | ED.RN ---
[facility] CALLED AND CONFIRMED HIS DILANTIN WAS DC'D ON 03/29/18. PHYSICIAN IS AWARE
--- NOTE | 2018-04-07 07:05 | DCINST.ED_ITS ---
ED Disposition - Plan for ED Patient: Chief Complaint: Back Instructions: ED Neck Back Pain General, ED Seizure Recurrent Referrals: Karma Barnes, CARDIAC TECHNOLOGIST-C [Primary Care Provider] -
--- NOTE | 2018-04-07 07:53 | ED.RN ---
pT SLEEPING WITH NO DISTRESS NOTED. hr 62
[2018-04-07 08:17] VITALS: BP 123/71; PULSE 68; RESP 22; O2SAT 99
== END 2018-04-07 08:49 | disposition home or self-care (01) ==
PROVIDERS: Emergency Provider Emergency Medicine; Family Provider Nurse Practitioner Adult Health; PCP Nurse Practitioner Adult Health
DX: M54.5 Low back pain (principal); G89.29 Other chronic pain; G40.909 Epilepsy, unspecified, not intractable, without status epilepticus; W19.XXXA Unspecified fall, initial encounter; Y93.89 Activity, other specified; Y92.89 Other specified places as the place of occurrence of the external cause; Y99.8 Other external cause status
CPT/HCPCS: 72100; 80164; 80185; 99284

== ENCOUNTER 2018-04-15 10:38 | Emergency (ER) | payer MEDICARE, SELFPAY ==
[2018-04-15 10:39] VITALS: BP 102/58; BP 88/55; PULSE 92; PULSE 93; RESP 20; RESP 918; TEMP 36.6; O2SAT 93; O2SAT 96; BMI 40.4
--- NOTE | 2018-04-15 10:58 | ED.VISSUMM ---
- ER Visit Summary Date of Service: 04/15/18 Chief Complaint: [] Sleepy history of seizures History of Present Illness: The patient is a 58 M [] the patient has a long history of seizure disorder pain manner and, he is on multiple seizure meds and pain management meds he lives in assisted living environment, per the assisted living individuals he received his morning meds that usually makes him somnolent, he was then scheduled to have outpatient testing at the hospital, when he arrived to the outpatient testing center at the hospital he was too sleepy and he was sent to the emergency department, the patient appears sleepy he has no signs of trauma he is opens his eyes he answer simple questions and then goes right back to sleep, we did speak with the assisted living center and they confirm this is his normal status he was simply sent to the hospital for routine outpatient tests he has not been acutely ill in any way he has been taking all his medications Physical Examination: [] His vital signs are within normal range she is sleeping he arouses opens his eyes looks about answer simple questions yes no there is questionable mild discomfort with palpation of the left side of the head, normal no obvious neck chest trauma his lungs sound clear his heart tones are diminished distant the abdomen is obese but soft there is a metallic object in the right lower abdomen and we understand this to be a prior pain management pump that is no longer functioning he has 3-4+ edema to his lower extremities he is not purposely moving all 4 and he is resting comforting the bed, he has no complaints Test Results: [] Emergency Department Course and Treatment: [] On Dilantin and Depakote there is no history or signs to suggest obvious toxicity will obtain screening labs observe the patient in the department, his cardiopulmonary respiratory status appears stable Patient's lab studies are all generally unremarkable, the head CT shows nothing acute appears to be a soft tissue contusion over the left parietal region see those reports he is remained awake arousable here in the emergency department but sleepy this apparently is his baseline we have confirmed the above with his caretakers at his assisted living/[facility] center, we discussed all the above with his caretakers, they feel they can manage him with the above there is no indication to change any of his meds as he has had refractory seizures nausea been stable recently, and they are comfortable with his discharge back home to continue his management therapy Treatment Plan: [] Disposition: [] Home stable Impression: [] Excessive sleepiness suspect related to multiple medications This note was generated with [employer] dictation software. It may contain incorrect words, spelling, and punctuation that were not noted in review of the chart prior to signing ED Disposition - Plan for ED Patient: Chief Complaint: Mental Status Change Referrals: Karma Barnes, TRAVEL NURSE-C [Primary Care Provider] -
[2018-04-15 11:01] LABS: Bedside Glucose 129 mg/dL (70-110)
[2018-04-15] MEDS: 0.9% Normal Saline 1,000 ML 100 ML IV (11:05)
[2018-04-15 11:06] LABS: Absolute Lymphocyte Count 1.45 X10^3/ul (0.83-4.51); Absolute Neutrophil Count 1.7 X10^3/uL (2.0-7.7); Basophil# 0.02 X10^3/uL; Basophil% 0.5 % (0-1); Eosinophil# 0.08 X10^3/uL; Eosinophils% 2.2 % (0-5); Hematocrit 43.3 % (40-54); Hemoglobin 14.2 g/dl (13.0-16.5); Lymphocyte # 1.45 X10^3/ul (4.0); Lymphocyte % 39.7 % (19-41); Mean Corp Hgb Conc 32.8 g/gl (32-36); Mean Corpuscular Hgb 31.9 pg (27.0-32.0); Mean Corpuscular Volume 97.3 fL (80-94); Mean Platelet Vol. 10.7 fl (6.2-12.0); Monocyte# 0.37 X10^3/uL; Monocyte% 10.1 % (0-10); Neutrophil # 1.73 X10^3/uL (2.7-7.7); Neutrophil % 47.5 % (47-70); Platelet Count 119 K/mm3 (150-450); RBC Distribution Width CV 13.5 % (11.6-14.6); RBC Distribution Width SD 46.8 fl (35.1-43.9); Red Blood Count 4.45 M/mm3 (4.6-6.2); White Blood Count 3.7 K/mm3 (4.4-11.0)
[2018-04-15 11:07] LABS: POSITIVE COUNT NO; POSITIVE DIFFERENTIAL NO; POSITIVE MORPHOLOGY NO
--- NOTE | 2018-04-15 11:15 | ED.DCSUM_ITS ---
- ER Visit Summary Date of Service: 04/15/18 Chief Complaint: [] Sleepy history of seizures History of Present Illness: The patient is a 58 M [] the patient has a long history of seizure disorder pain manner and, he is on multiple seizure meds and pain management meds he lives in assisted living environment, per the assisted living individuals he received his morning meds that usually makes him somnolent , he was then scheduled to have outpatient testing at the hospital, when he arrived to the outpatient testing center at the hospital he was too sleepy and he was sent to the emergency department, the patient appears sleepy he has no signs of trauma he is opens his eyes he answer simple questions and then goes right back to sleep, we did speak with the assisted living center and they confirm this is his normal status he was simply sent to the hospital for routine outpatient tests he has not been acutely ill in any way he has been taking all his medications Physical Examination: [] His vital signs are within normal range she is sleeping he arouses opens his eyes looks about answer simple questions yes no there is questionable mild discomfort with palpation of the left side of the head, normal no obvious neck chest trauma his lungs sound clear his heart tones are diminished distant the abdomen is obese but soft there is a metallic object in the right lower abdomen and we understand this to be a prior pain management pump that is no longer functioning he has 3-4+ edema to his lower extremities he is not purposely moving all 4 and he is resting comforting the bed, he has no complaints Test Results: [] Emergency Department Course and Treatment: [] On Dilantin and Depakote there is no history or signs to suggest obvious toxicity will obtain screening labs observe the patient in the department, his cardiopulmonary respiratory status appears stable Patient's lab studies are all generally unremarkable, the head CT shows nothing acute appears to be a soft tissue contusion over the left parietal region see those reports he is remained awake arousable here in the emergency department but sleepy this apparently is his baseline we have confirmed the above with his caretakers at his assisted living/[facility]pc center, we discussed all the above with his caretakers, they feel they can manage him with the above there is no indication to change any of his meds as he has had refractory seizures nausea been stable recently, and they are comfortable with his discharge back home to continue his management therapy Treatment Plan: [] Disposition: [] Home stable Impression: [] Excessive sleepiness suspect related to multiple medications This note was generated with [employer] dictation software. It may contain incorrect words, spelling, and punctuation that were not noted in review of the chart prior to signing ED Disposition - Plan for ED Patient: Chief Complaint: Mental Status Change Referrals: Karma Barnes, PERIOPERATIVE TECH-C [Primary Care Provider] -
[2018-04-15 11:22] LABS: Anion Gap 7 (5-15); BUN 20 mg/dL (7-18); BUN/Creat Ratio 28.2 RATIO (10-20); Calcium,Total 8.7 mg/dL (8.5-10.1); Chloride 109 mmol/L (98-107); Creatinine, Serum 0.71 mg/dL (0.70-1.30); EST Glomerular Filtration Rate 122 mL/min (>60); Est Glom Filt Rate - Afr Amer 148 mL/min (>60); Estimated Creatinine Clearance 112.39 ml/min; Glucose 127 mg/dL (74-106); Potassium 3.6 mmol/L (3.5-5.1); Sodium Level 146 mmol/L (136-145)
[2018-04-15 11:57] LABS: Phenytoin (Dilantin) Level 1.2 mL (10.0-20.0)
[2018-04-15 12:01] LABS: Valproic Acid (Depakene) Level 111 ug/mL (50-100)
[2018-04-15 13:20] VITALS: BP 108/70; PULSE 70; RESP 14; O2SAT 97
--- NOTE | 2018-04-15 13:43 | ED.DEP ---
ED Disposition - Plan for ED Patient: Chief Complaint: Mental Status Change Instructions: ED Altered Loc, ED Confusion, ED Drug Abuse General Referrals: Karma Banres, VIDEO RECORDER MECHANIC-C [Primary Care Provider] -
== END 2018-04-15 14:15 | disposition home or self-care (01) ==
PROVIDERS: Emergency Provider Emergency Medicine; Family Provider Nurse Practitioner Adult Health; PCP Nurse Practitioner Adult Health
DX: G47.10 Hypersomnia, unspecified (principal); G40.909 Epilepsy, unspecified, not intractable, without status epilepticus; Z79.899 Other long term (current) drug therapy
CPT/HCPCS: 70450; 80048; 80164; 80185; 82962; 85025; 96360; 96361; 99283; J7030

== ENCOUNTER → 2019-03-21 | Outpatient (CLI) | payer MEDICARE, SELFPAY ==
[2019-03-21 14:15] LABS: Absolute Lymphocyte Count 2.38 X10^3/uL (0.83-4.51); Absolute Neutrophil Count 2.3 X10^3/uL (2.0-7.7); Basophil# 0.05 X10^3/uL; Eosinophil# 0.14 X10^3/uL; Eosinophils% 2.7 % (0-5); Hematocrit 42.1 % (40-54); Lymphocyte # 2.38 X10^3/ul (4.0); Lymphocyte % 45.8 % (19-41); Mean Corp Hgb Conc 33.3 g/dL (32-36); Mean Corpuscular Hgb 32.9 pg (27.0-32.0); Mean Corpuscular Volume 99.1 fL (80-94); Mean Platelet Vol. 10.3 fl (6.2-12.0); Monocyte# 0.34 X10^3/uL; Monocyte% 6.5 % (0-10); NRBC Flagged by Analyzer 0 % (0-5); Neutrophil # 2.27 X10^3/uL (2.7-7.7); Neutrophil % 43.6 % (47-70); Platelet Count 144 K/mm3 (150-450); RBC Distribution Width CV 12.5 % (11.6-14.6); RBC Distribution Width SD 45.3 fl (35.1-43.9); Red Blood Count 4.25 M/mm3 (4.6-6.2); White Blood Count 5.2 K/mm3 (4.4-11.0)
[2019-03-21 14:40] LABS: ALB/GLOB Ratio 0.9 RATIO (0.9-2.4); AST(SGOT) 10 U/L (15-37); Alanine Aminotransfer ALT/SGPT 18 U/L (16-61); Albumin, Serum 3.6 g/dL (3.2-5.0); Alkaline Phosphatase 90 U/L (45-117); Anion Gap 9 (5-15); BUN 22 mg/dL (7-18); BUN/Creat Ratio 25.3 RATIO (10-20); Bilirubin, Direct 0.07 mg/dL (0.00-0.30); Calcium,Total 8.8 mg/dL (8.5-10.1); Chloride 107 mmol/L (98-107); Creatinine, Serum 0.87 mg/dL (0.70-1.30); EST Glomerular Filtration Rate 96 mL/min (>60); Est Glom Filt Rate - Afr Amer 116 mL/min (>60); Globulin 4.2 g/dL (2.2-4.2); Glucose 141 mg/dL (74-106); Potassium 4.2 mmol/L (3.5-5.1); Protein, Total 7.8 g/dL (6.4-8.2); Sodium Level 144 mmol/L (136-145)
[2019-03-21 14:41] LABS: Valproic Acid (Depakene) Level 85 ug/mL (50-100)
[2019-03-25 11:15] LABS: KEPPRA (LEVETIRACETAM) 16.3 ug/mL (10.0-40.0)
== END | disposition home or self-care (01) ==
PROVIDERS: Family Provider Family Medicine; PCP Family Medicine; Referring Provider Nurse Practitioner Family; Visit Provider Nurse Practitioner Family
DX: R56.9 Unspecified convulsions (principal)
CPT/HCPCS: 36415; 80053; 80164; 80177; 82140; 82248; 85025

== ENCOUNTER 2019-04-10 09:31 | Emergency (ER) | payer MEDICARE, MEDICAID, SELFPAY ==
[2019-04-10 09:32] VITALS: BP 105/90; PULSE 74; RESP 16; TEMP 36.8; O2SAT 92; BMI 34.5
[2019-04-10 09:45] VITALS: BP 115/70; PULSE 74; RESP 16; O2SAT 93
--- NOTE | 2019-04-10 09:50 | ED.DCSUM_ITS ---
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 At approximately 09 30 PM last night patient had an episode where his head was shaking per report from [facility] for approximately 3 minutes. They noted that throughout the course of the night and this morning he was more sleepy than normal and they have sent him here for evaluation. He has not taken his lactulose in 2 days. He states that he does not like to take it because he has difficulty wiping himself after he has a bowel movement and he takes the lactulose in the evening and it makes him wake up in the middle the night to have a bowel movement which is why he does not want to take it. Patient has no complaints at this time. Prior similar symptoms: Yes Recent Illness/Hospitalization: No <Jitendra Bashir - Last Filed: 04/10/19 13:38> <Maria Esther Gerard - Last Filed: 04/10/19 15:10> Chief Complaint: Mental Status Change Past Medical History Prior records reviewed: Yes Past Medical History: - - Traumatic brain injury, alcoholic cirrhosis, seizure disorder Surgical History: appendectomy, - - Brain surgery. Lives: Longterm Smoking Status: Current every day smoker Alcohol: None - History of alcohol abuse Drugs: None - Family History Maternal Family History: Family History (Last Reviewed 04/15/18 @ 10:26 by PAIGE Porter) Mother Diabetes Hypertension Family History: Reports: No pertinent history Paternal Family History: Family History (Last Reviewed 04/15/18 @ 10:26 by PAIGE Porter) Mother Diabetes Hypertension Family History: Reports: No pertinent history <Jitendra Bashir - Last Filed: 04/10/19 13:38> - Family History Maternal Family History: Family History (Last Reviewed 04/15/18 @ 10:26 by PAIGE Porter) Mother Diabetes Hypertension Paternal Family History: Family History (Last Reviewed 04/15/18 @ 10:26 by PAIGE Porter) Mother Diabetes Hypertension <Maria Esther Gerard - Last Filed: 04/10/19 15:10> - Allergies and Home Meds Allergies/Adverse Reactions: Allergies No Known Allergies Allergy (Verified 03/15/18 13:20) Primary Care Physician: Benito Gomez MD [Primary Care Provider] - Review of Systems All systems negative except as indicated General: Denies: Chills, Fever Cardiovascular: Denies: Chest pain Respiratory: Denies: Dyspnea Gastrointestinal: Denies: Abdominal pain Neurological: Denies: Headache, Weakness, Parasthesia, Numbness <Jitendra Bashir - Last Filed: 04/10/19 13:38> Physical Exam Vital Signs/Narrative: Vital Signs Temp Pulse Resp BP Pulse Ox 04/10/19 09:45 74 16 115/70 93 04/10/19 09:32 98.2 F 74 16 105/90 H 92 Inital Vital Signs reviewed: Yes General: Well nourished, Well developed, Obese, No Acute Distress Head: Normocephalic, Atraumatic Eyes: Perrl, EOMI ENT: Moist mucous membranes Neck: Supple, Nontender Cardiovascular: Regular rate, Regular rhythm Respiratory: No distress, CTA bilaterally, Chest nontender Abdomen: Soft, Nontender, Nondistended, Normal bowel sounds, No masses Extremities: Nontender, No edema Skin: Normal color, No rash, No Trauma Neurological: Alert, Oriented x3 <Jitendra Bashir - Last Filed: 04/10/19 13:38> Vital Signs/Narrative: Vital Signs Pulse Resp BP Pulse Ox 04/10/19 13:19 77 18 116/81 H 97 <Maria Esther Gerard - Last Filed: 04/10/19 15:10> Diagnostic/Tx/Re-eval - Medical Decision Making Patient has stable vital signs. Throughout his stay in the emergency department there is no seizure-like activity. We did obtain a laboratory work-up. His ammonia level has actually decreased to 35 from over 90 a few days ag o. His valproic acid level was slightly elevated just above the upper limit of normal. We are unable to obtain a Keppra level at this time. The rest of his labs are unremarkable. Again the patient has a known seizure disorder. At this time we do not feel admission or further work-up in the emergency department is indicated. He will be discharged home back to the [facility]. He remains in stable condition. He was able to eat lunch without difficulty.Laboratory Results 04/10/19 04/10/19 04/10/19 11:30 11:30 11:30 WBC 7.1 RBC 4.12 L Hgb 13.4 Hct 41.4 MCV 100.5 H MCH 32.5 H MCHC 32.4 RDW Std Deviation 46.0 H RDW Coeff of Lamine 12.4 Plt Count 131 L MPV 10.5 Immature Gran % (Auto) 0.600 Neut % (Auto) 58.2 Lymph % (Auto) 32.0 Stephenson % (Auto) 6.8 Eos % (Auto) 1.8 Baso % (Auto) 0.6 Absolute Neuts (auto) 4.1 Absolute Lymphs (auto) 2.26 Nucleated RBC % 0 Sodium 144 Potassium 4.6 Chloride 108 H Carbon Dioxide 30.0 Anion Gap 6 BUN 17 Creatinine 0.75 Estim Creat Clear Calc 129.88 Est GFR (MDRD) Af Amer 139 Est GFR (MDRD) Non-Af 115 BUN/Creatinine Ratio 22.8 H Glucose 106 Calcium 8.7 Total Bilirubin 0.20 AST 11 L ALT 13 L Alkaline Phosphatase 74 Ammonia Total Protein 6.8 Albumin 3.4 Globulin 3.4 Albumin/Globulin Ratio 1.0 Valproic Acid 105 H 04/10/19 11:30 WBC RBC Hgb Hct MCV MCH MCHC RDW Std Deviation RDW Coeff of Lamine Plt Count MPV Immature Gran % (Auto) Neut % (Auto) Lymph % (Auto) Stephenson % (Auto) Eos % (Auto) Baso % (Auto) Absolute Neuts (auto) Absolute Lymphs (auto) Nucleated RBC % Sodium Potassium Chloride Carbon Dioxide Anion Gap BUN Creatinine Estim Creat Clear Calc Est GFR (MDRD) Af Amer Est GFR (MDRD) Non-Af BUN/Creatinine Ratio Glucose Calcium Total Bilirubin AST ALT Alkaline Phosphatase Ammonia 35.0 H Total Protein Albumin Globulin Albumin/Globulin Ratio Valproic Acid <Jitendra Bashir - Last Filed: 04/10/19 13:38> - Medical Decision Making Patient presents from [facility] with reported mental status change. They state that he has been more sleepy. A few days ago his ammonia level was noted to be in the 90s. He has been refusing his lactulose. Patient resting comfortably in bed but easily awakens to voice. His only complaint is chronic neck and back pain. Head neck examination is unremarkable. Heart is regular rate and rhythm. Lung sounds are clear. Abdomen is soft nontender. No focal neuro deficits noted. Labs were repeated and at this time ammonia level is only 35. He will be discharged back to [facility]. <Maria Esther Gerard - Last Filed: 04/10/19 15:10> ED Disposition <Jitendra Bashir - Last Filed: 04/10/19 13:38> <Maria Esther Gerard - Last Filed: 04/10/19 15:10> - Plan for ED Patient: Disposition: Home or Assisted Living Diagnosis: Altered mental state, Seizure disorder, Traumatic brain injury Instructions: Altered Loc Referrals: Benito Gomez MD [Primary Care Provider] -
[2019-04-10 11:42] LABS: Absolute Lymphocyte Count 2.26 X10^3/uL (0.83-4.51); Absolute Neutrophil Count 4.1 X10^3/uL (2.0-7.7); Basophil# 0.04 X10^3/uL; Basophil% 0.6 % (0-1); Eosinophil# 0.13 X10^3/uL; Eosinophils% 1.8 % (0-5); Hematocrit 41.4 % (40-54); Hemoglobin 13.4 g/dL (13.0-16.5); Lymphocyte # 2.26 X10^3/ul (4.0); Mean Corp Hgb Conc 32.4 g/dL (32-36); Mean Corpuscular Hgb 32.5 pg (27.0-32.0); Mean Corpuscular Volume 100.5 fL (80-94); Mean Platelet Vol. 10.5 fl (6.2-12.0); Monocyte# 0.48 X10^3/uL; Monocyte% 6.8 % (0-10); NRBC Flagged by Analyzer 0 % (0-5); Neutrophil # 4.11 X10^3/uL (2.7-7.7); Neutrophil % 58.2 % (47-70); Platelet Count 131 K/mm3 (150-450); RBC Distribution Width CV 12.4 % (11.6-14.6); Red Blood Count 4.12 M/mm3 (4.6-6.2); White Blood Count 7.1 K/mm3 (4.4-11.0)
[2019-04-10 12:22] LABS: Valproic Acid (Depakene) Level 105 ug/mL (50-100)
[2019-04-10 12:26] LABS: AST(SGOT) 11 U/L (15-37); Alanine Aminotransfer ALT/SGPT 13 U/L (16-61); Albumin, Serum 3.4 g/dL (3.2-5.0); Alkaline Phosphatase 74 U/L (45-117); Anion Gap 6 (5-15); BUN 17 mg/dL (7-18); BUN/Creat Ratio 22.8 RATIO (10-20); Calcium,Total 8.7 mg/dL (8.5-10.1); Chloride 108 mmol/L (98-107); Creatinine, Serum 0.75 mg/dL (0.70-1.30); EST Glomerular Filtration Rate 115 mL/min (>60); Est Glom Filt Rate - Afr Amer 139 mL/min (>60); Estimated Creatinine Clearance 129.88 ml/min; Globulin 3.4 g/dL (2.2-4.2); Glucose 106 mg/dL (74-106); Potassium 4.6 mmol/L (3.5-5.1); Protein, Total 6.8 g/dL (6.4-8.2); Sodium Level 144 mmol/L (136-145)
[2019-04-10 13:19] VITALS: BP 116/81; PULSE 77; RESP 18; O2SAT 97
--- NOTE | 2019-04-10 13:22 | NURSING ---
GAVE REPORT TO [facility] AT [facility], PT IS CLEAR FOR TRANSPORT BACK TO FACILITY. DISCHARGE INSTRUCTIONS GIVEN TO [facility].
--- NOTE | 2019-04-10 13:52 | ED.RN ---
PT OUT OF ED WITH [facility] FOR TRANSPORT BACK TO [facility]. PT SKIN P/W/D, RESP EVEN AND UNLABORED, NO DISTRESS NOTED.
== END 2019-04-10 13:53 | disposition home or self-care (01) ==
PROVIDERS: Emergency Provider Physician Assistant Medical; Family Provider Family Medicine; PCP Family Medicine
DX: R41.82 Altered mental status, unspecified (principal); G40.909 Epilepsy, unspecified, not intractable, without status epilepticus; Z87.820 Personal history of traumatic brain injury; E66.9 Obesity, unspecified; M54.9 Dorsalgia, unspecified; M54.2 Cervicalgia; G89.29 Other chronic pain; K70.30 Alcoholic cirrhosis of liver without ascites; G93.40 Encephalopathy, unspecified; Z79.82 Long term (current) use of aspirin; Z79.899 Other long term (current) drug therapy; F17.200 Nicotine dependence, unspecified, uncomplicated
CPT/HCPCS: 80053; 80164; 82140; 85025; 99285; A4216

== ENCOUNTER → 2019-05-30 | Outpatient (CLI) | payer MEDICARE, SELFPAY ==
[2019-05-03 12:41] VITALS: BMI 34.5
[2019-05-30 16:20] LABS: Vitamin B12 794 pg/mL (211-911)
[2019-05-30 16:24] LABS: Thyroid Stim Hormone (TSH) 1.13 uIU/mL (0.358-3.74)
[2019-05-30 16:26] LABS: Erythrocyte Sedimentation Rate 18 mm/hr (0-20)
[2019-05-31 10:41] LABS: Ferritin 102 ng/mL (26-388)
== END | disposition home or self-care (01) ==
PROVIDERS: Family Provider Family Medicine; PCP Family Medicine; Referring Provider Nurse Practitioner Family; Visit Provider Nurse Practitioner Family
DX: R53.83 Other fatigue (principal)
CPT/HCPCS: 36415; 82140; 82607; 82728; 84443; 85652; 86140

== ENCOUNTER → 2019-06-09 | Outpatient (CLI) | payer MEDICARE, MEDICAID, SELFPAY ==
[2019-05-03 12:41] VITALS: BMI 34.5
--- NOTE | 2019-06-09 17:44 | MRI_ITS ---
STUDY: MRI BRAIN WITHOUT CONTRAST REASON FOR EXAM: Male, 59 years old. G with altered mental status. TECHNIQUE: Standardized multiplanar fat and water weighted pulse sequences were obtained. COMPARISON: [address] head FINDINGS: There is mild cerebral atrophy with widening of the extra-axial spaces and ventricular dilatation. Right temporal lobe or lobe gliotic changes likely secondary to previous infarct is present. There are a limited number of small white matter hyperintensities, distributed throughout the deep white matter tracts of the cerebral hemispheres, consistent with mild chronic white matter ischemic changes. There is no evidence for recent intracranial ischemia or other cause of cytotoxic edema on diffusion weighted imaging (DWI). Normal T2* images of the brain without demonstrated susceptibility artifact. There is no demonstrated hemosiderin stain. Normal bilateral basal ganglia. Normal thalami. There is no extra-axial fluid accumulation. Normal flow voids within the major intracranial circulation suggesting patency by spin echo criteria. Normal sella turcica, pituitary gland, infundibular stalk, optic chiasm and hypothalamus. Normal tectal plate and pineal gland. Normal midbrain, patti and medulla. Normal cerebellum. Normal basal cisterns. Normal bilateral temporal bones. Normal bilateral internal auditory canals. No demonstrated orbital abnormality, within the constraints of a routine brain study. Normal visualized paranasal sinuses. Normal calvarium and skull base. Normal visualized soft tissue structures. Normal visualized upper cervical spine. MRI/Brain without Contrast IMPRESSION: Senescent changes above with no evidence of acute intracranial bleed, mass or ischemia. Electronically Signed: Jaylen Evans DO at 21:49 EDT , Service support ,
== END | disposition home or self-care (01) ==
LOC: MRI 17:39
PROVIDERS: Family Provider Family Medicine; PCP Family Medicine; Referring Provider Nurse Practitioner Family; Visit Provider Nurse Practitioner Family
DX: R41.82 Altered mental status, unspecified (principal); R53.83 Other fatigue; G47.33 Obstructive sleep apnea (adult) (pediatric)
CPT/HCPCS: 70551; 95810

== ENCOUNTER → 2019-07-08 | Outpatient (CLI) | payer MEDICARE, MEDICAID, SELFPAY ==
[2019-05-03 12:41] VITALS: BMI 34.5
== END | disposition home or self-care (01) ==
PROVIDERS: Family Provider Family Medicine; PCP Family Medicine; Referring Provider Nurse Practitioner Family; Visit Provider Nurse Practitioner Family
DX: G47.33 Obstructive sleep apnea (adult) (pediatric) (principal)
CPT/HCPCS: 95811

== ENCOUNTER → 2019-08-03 12:09 | Outpatient (CLI) | payer MEDICARE, MEDICAID, SELFPAY ==
[2019-05-03 12:41] VITALS: BMI 34.5
--- NOTE | 2019-08-03 12:16 | RAD_ITS ---
STUDY: X-RAY - LUMBAR SPINE REASON FOR EXAM: Male, 59 years old. Low back pain TECHNIQUE: 3 view(s) of the lumbar spine were obtained. COMPARISON: None FINDINGS: Normal lumbar lordosis. There is no substantial scoliosis. There is a normal alignment of the vertebrae. Normal vertebral bodies and endplates. Prominent left lateral bridging osteophyte is present at L2-L3 as well as smaller multilevel marginal osteophytes. There is lower lumbar posterior facet arthropathy. Normal disc space heights. The soft tissue structures are unremarkable. RAD/Lumbar Spine 2 or 3 Views IMPRESSION: Normal x-ray examination of the lumbar spine. Mild degenerative spondylosis. Electronically Signed: Chelsea Douglas MD at 13:51 EST , Service support ,
== END ==
PROVIDERS: Family Provider Family Medicine; PCP Family Medicine; Referring Provider Anesthesiology Pain Medicine; Visit Provider Anesthesiology Pain Medicine
DX: M54.5 Low back pain (principal)
CPT/HCPCS: 72100

== ENCOUNTER → 2019-09-07 09:21 | Outpatient (CLI) | payer MEDICARE, MEDICAID, SELFPAY ==
[2019-08-09 10:52] VITALS: BMI 38.0
[2019-08-17 06:27] VITALS: BMI 37.2
--- NOTE | 2019-09-07 09:21 | STEWCON_ITS ---
Reason For Study: arrythmia-other Stress Results Protocol: Dobutamine Stress Echo With Definity Maximum Predicted HR: 163 bpm Target HR: 139 bpm % Maximum Predicted HR: 85 % DurationHeart Rate Stage (mm:ss) (bpm) BP Dose Comment baseline 67 123/61 8ml total definity given stage 1 4:41 77 131/4410.00 stage 2 3:00 112 132/5720.00 stage 3 3:00 101 111/7130.00 stage 4 4:28 139 115/2340.000.25 mg atropine given recovery 101 119/51 Stress Duration: 15:09 mm:ss Maximum Stress HR: 139 bpm Baseline Echocardiogram Findings The estimated ejection fraction is 65 %. Stress Echo Wall motion Data Resting WM Intermediate WM Stress WM Resting Wall Motion Wall Motion Stress No regional wall motion No regional wall motion abnormalities noted. abnormalities noted. EKG Data The baseline ECG displays normal sinus rhythm. The patient was titrated from 10 mcg to a maximum of 40 mcg of dobutamine during the stress. The maximum heart rate attained was 139 beats per minute. This was 85% of maximum predicted heart rate. During dobutamine infusion, there were no ST or T wave changes noted to suggest ischemia. No clinical angina was noted. No arrhythmias noted. Interpretation Summary The estimated ejection fraction is 65 %. Normal, adequate, dobutamine echocardiogram. Negative for ischemia by EKG and echocardiographic criteria. No anginal symptoms noted. No arrhythmias noted. Appropriate blood pressure response to dobutamine. Final LVEF is 75%. Test terminated due to the attainment target heart rate. Decreased sensitivity due to poor echo windows requiring Definity agent. No complications. The study was technically difficult. Contrast injection was performed. Ordering Physician: Pelon Santos Referring Physician: Pelon Santos Performed By: Lilly Haley, BLAKE, RVT
== END ==
PROVIDERS: Family Provider Family Medicine; PCP Family Medicine; Referring Provider Internal Medicine Cardiovascular Disease; Visit Provider Internal Medicine Cardiovascular Disease
DX: R06.09 Other forms of dyspnea (principal); Z86.73 Personal history of transient ischemic attack (TIA), and cerebral infarction without residual deficits; G47.31 Primary central sleep apnea; G47.33 Obstructive sleep apnea (adult) (pediatric); J44.9 Chronic obstructive pulmonary disease, unspecified; G40.909 Epilepsy, unspecified, not intractable, without status epilepticus
CPT/HCPCS: 93017; 93350; J7040; Q9957; A4216; C8928

== ENCOUNTER → 2019-09-08 12:56 | Outpatient (CLI) | payer MEDICARE, MEDICAID, SELFPAY ==
[2019-08-17 06:27] VITALS: BMI 37.2
--- NOTE | 2019-09-08 12:57 | ECHOCS_ITS ---
Reason For Study: ARRHYTHMIA Procedure This was a 2D Doppler, Color Flow transthoracic echocardiogram. The study was technically difficult. Contrast injection was performed. Exam performed in department. Left Ventricle Normal size and thickness. The estimated ejection fraction is 65 %. Stage 1 diastolic dysfunction. No regional wall motion abnormalities noted. Right Ventricle Mildly dilated right ventricle. Normal systolic function. Atria Normal left atrium. Normal right atrium. Normal atrial septum. Mitral Valve The mitral valve is structurally normal. No prolapse or stenosis seen. Tricuspid Valve Normal tricuspid valve. Trivial tricuspid valve insufficiency. Unable to estimate RV systolic pressure due to insufficient tricuspid regurgitant envelope. Aortic Valve Normal aortic valve. Trisinus/trileaflet aortic valve. Pulmonic Valve Normal pulmonic valve. Great Vessels Normal aortic root. Normal arch. Normal inferior vena cava. Inferior vena cava collapse with sniff. Pericardium/Pleural No pericardial effusion. Medication 22 gauge I.V. with prn adaptor inserted into right arm. Diluted definity 3.0ml given slow IV push to enhance endocardial definition. MMode/2D Measurements & Calculations LVIDd: 5.0 cm IVSd: 1.1 cm Ao root diam: 3.0 cm LVIDs: 3.5 cm LVPWd: 1.1 cm RVDd: 3.6 cm FS: 29.7 % LAV(MOD-bp): 42.2 ml LVAd ap4: 35.2 cm2 SV(MOD-sp4): 72.1 ml LAV(MOD-bp) Indexed: 17.0 ml/m2 EDV(MOD-sp4): 128.3 ml LAV(MOD-sp2): 44.9 ml EDV(sp4-el): 132.1 ml LAV(MOD-sp4): 38.7 ml LVAs ap4: 21.0 cm2 ESV(MOD-sp4): 56.2 ml ESV(sp4-el): 57.7 ml EF(MOD-sp4): 56.2 % EF(sp4-el): 56.3 % SV(sp4-el): 74.4 ml LA A4 area: 16.0 cm2 LA dimension(2D): 4.0 cm RA A4 area: 13.5 cm2 Time Measurements MV dec time: 0.28 sec Doppler Measurements & Calculations MV E max rhett: 77.4 cm/sec Lat Peak E' Rhett: 8.6 cm/sec Med Peak E' Rhett: 6.7 cm/sec MV A max rhett: 92.3 cm/sec E/E' lat: 9.0 E/E' med: 11.5 MV E/A: 0.84 Ao V2 max: 137.8 cm/sec LV V1 max: 116.1 cm/sec Ao max P.6 mmHg LV V1 max P.4 mmHg Interpretation Summary The estimated ejection fraction is 65 %. Stage 1 diastolic dysfunction. Mildly dilated right ventricle. Trivial tricuspid valve insufficiency. Unable to estimate RV systolic pressure due to insufficient tricuspid regurgitant envelope. There is no comparison study available. Ordering Physician: Pelon Santos Referring Physician: RONNY MCCORMICK Performed By: Anjelica Landon RDCS, RVT
== END ==
PROVIDERS: Family Provider Family Medicine; PCP Family Medicine; Referring Provider Internal Medicine Cardiovascular Disease; Visit Provider Internal Medicine Cardiovascular Disease
DX: I49.8 Other specified cardiac arrhythmias (principal); G47.31 Primary central sleep apnea; G47.33 Obstructive sleep apnea (adult) (pediatric); J44.9 Chronic obstructive pulmonary disease, unspecified
CPT/HCPCS: 93306; Q9957; A4216; C8929

== ENCOUNTER → 2019-10-14 | Outpatient (CLI) | payer MEDICARE, MEDICAID, SELFPAY ==
[2019-08-17 06:27] VITALS: BMI 37.2
== END | disposition home or self-care (01) ==
LOC: SL 08:25
PROVIDERS: PCP Family Medicine; Referring Provider Internal Medicine Critical Care Medicine; Visit Provider Internal Medicine Critical Care Medicine
DX: G47.31 Primary central sleep apnea (principal); G47.33 Obstructive sleep apnea (adult) (pediatric); S06.9X9A Unspecified intracranial injury with loss of consciousness of unspecified duration, initial encounter
CPT/HCPCS: 95811

== ENCOUNTER → 2020-11-19 11:52 | Outpatient (CLI) | payer MEDICARE, MEDICAID, SELFPAY ==
--- NOTE | 2020-11-19 12:01 | RAD_ITS ---
INDICATION: BACK PAIN EXAMINATION/TECHNIQUE: X-RAY - XR Spine Lumbar 2 or 3 Views COMPARISON: 08/03/2019. FINDINGS: VERTEBRAE: Preserved vertebral body height. No fracture. No spondylolisthesis. Preservation of the normal lumbar lordosis. Mild multilevel facet arthropathy. DISCS: Mild multilevel disc space narrowing and osteophytosis. INCLUDED ABDOMEN: Included bowel gas pattern is non-obstructive. RAD/Lumbar Spine 2 or 3 Views IMPRESSION: No acute abnormalities. Mild multilevel lumbar spondylosis and facet arthropathy. Electronically Signed: Fausto Ashby MD at 22:39 EDT Tel , Service support ,
== END ==
PROVIDERS: Referring Provider Anesthesiology Pain Medicine; Visit Provider Anesthesiology Pain Medicine
DX: M54.5 Low back pain (principal)
CPT/HCPCS: 72100

== ENCOUNTER → 2021-06-17 12:15 | Outpatient (CLI) | payer MEDICARE, MEDICAID, SELFPAY ==
[2021-06-17 12:43] VITALS: PULSE 77; PULSE 80; PULSE 82; PULSE 83; PULSE 84; PULSE 86; O2SAT 87; O2SAT 89; O2SAT 93; O2SAT 94; O2SAT 95
--- NOTE | 2021-06-17 12:46 | CPS ---
PATIENT ARRIVED FOR TESTING ON ROOM AIR WITH HIS WHEELED WALKER. RA SPO2 WAS 87%, PLACED ON 2LPM PRIOR TO BEGINNING WALK TEST. HE WAS ABLE TO REMAIN ON 2LPM FOR DURATION OF TESTING. REST BREAKS TAKEN FOR INCREASED SOB AND/OR LEG FATIGUE. HE CURRENTLY HAS OXYGEN AT HOME FOR USE WITH SLEEP. UNSURE THROUGH WHICH DME
--- NOTE | 2021-06-18 08:35 | WT_ITS ---
PSN 6 Minute Walk Test 6 Minute Walk Test 6 Minute Walk Test: 6 Minute Walk Test PSN:6-Minute Walk Test Start: 06/17/21 12:43 Freq: Status: Active Protocol: RESP.6MINW Document 06/17/21 12:43 [facility] (Rec: 06/17/21 12:48 [facility] [id number]) 6 Minute Walk Test Date Performed 06/17/21 Time Performed 12:30 Height 6 ft 1 in Weight: 136.985 kg Weight in Pounds 302.[address]: Forrest Flores Assistive device used: Walker Pre-test Oxygen Delivery Method Room Air Pulse Ox (%) 87 Pulse Rate (60-100 beats/min) 77 Dyspnea Kem Scale (0-10) 0 1st minute Oxygen Flow Rate (L/min) (L/min) 2 Oxygen Delivery Method Nasal Cannula Pulse Ox (%) 94 Pulse Rate (60-100 beats/min) 83 Dyspnea Kem Scale (0-10) 2 Number of Rests Taken 0 2nd minute Oxygen Flow Rate (L/min) (L/min) 2 Oxygen Delivery Method Nasal Cannula Pulse Ox (%) 93 Pulse Rate (60-100 beats/min) 84 Dyspnea Kem Scale (0-10) 3 Number of Rests Taken 1 Reported Symptoms Increased Work of Breathing 3rd minute Oxygen Flow Rate (L/min) (L/min) 2 Oxygen Delivery Method Nasal Cannula Pulse Ox (%) 95 Pulse Rate (60-100 beats/min) 82 Dyspnea Kem Scale (0-10) 3 Number of Rests Taken 0 Reported Symptoms Increased Work of Breathing 4th minute Oxygen Flow Rate (L/min) (L/min) 2 Oxygen Delivery Method Nasal Cannula Pulse Ox (%) 93 Pulse Rate (60-100 beats/min) 86 Dyspnea Kem Scale (0-10) 3 Number of Rests Taken 1 Reported Symptoms Increased Work of Breathing 5th minute Oxygen Flow Rate (L/min) (L/min) 2 Oxygen Delivery Method Nasal Cannula Pulse Ox (%) 94 Pulse Rate (60-100 beats/min) 82 Dyspnea Kem Scale (0-10) 2 Number of Rests Taken 1 6th minute Oxygen Flow Rate (L/min) (L/min) 2 Oxygen Delivery Method Nasal Cannula Pulse Ox (%) 93 Pulse Rate (60-100 beats/min) 84 Dyspnea Kem Scale (0-10) 2 Number of Rests Taken 0 Post-test Oxygen Delivery Method Room Air Pulse Ox (%) 89 Pulse Rate (60-100 beats/min) 80 Dyspnea Kem Scale (0-10) 0 Full Laps Walked 5 Partial Lap, Number of Tiles Walked 43 Total Distance Walked (ft) 338 06/17/21 12:46 Cardiopulmonary Services by Tena Lucas PATIENT ARRIVED FOR TESTING ON ROOM AIR WITH HIS WHEELED WALKER. RA SPO2 WAS 87%, PLACED ON 2LPM PRIOR TO BEGINNING WALK TEST. HE WAS ABLE TO REMAIN ON 2LPM FOR DURATION OF TESTING. REST BREAKS TAKEN FOR INCREASED SOB AND/OR LEG FATIGUE. HE CURRENTLY HAS OXYGEN AT HOME FOR USE WITH SLEEP. UNSURE THROUGH WHICH DME Initialized on 06/17/21 12:46 - END OF NOTE Interpretation Interpretation: The patient ambulated 338 feet over the course of 6 minutes beginning on room air with the use of a wheeled walker. Pretesting oxygen saturation was noted to be 87% on room air. 2 L of oxygen was applied. With ambulation, the letty oxygen saturation was 93% on 2 L/min. Recommendations Recommendations: 2 L/min of supplemental oxygen should be utilized at all times, both at rest and with exertion.
== END ==
PROVIDERS: Referring Provider Internal Medicine Critical Care Medicine; Visit Provider Internal Medicine Critical Care Medicine
DX: J44.9 Chronic obstructive pulmonary disease, unspecified (principal)
CPT/HCPCS: 94618

== ENCOUNTER → 2021-06-20 10:07 | Outpatient (CLI) | payer MEDICARE, MEDICAID, SELFPAY ==
--- NOTE | 2021-06-21 07:55 | PFT ---
INTRODUCTION: The patient is a 61-year-old male that presents for pulmonary function studies secondary to a diagnosis of COPD. Respiratory therapy reported good patient effort. Bronchodilators were used during testing. INTERPRETATION: Forced expiration spirometry demonstrates no evidence of a large airways obstructive ventilatory defect. There was no significant response to aerosolized bronchodilators. Spirograms are of fair quality but terminate prior to 6 seconds, likely underestimating FVC. Body plethysmography was performed and revealed a decreased TLC to 5.53 L, 75% of predicted, indicative of a mild restrictive ventilatory impairment. Diffusing capacity by single breath CO is reduced to 52% of predicted. IMPRESSION: Mild restrictive ventilatory impairment with disproportionate reduction in diffusing capacity.
== END ==
PROVIDERS: Referring Provider Internal Medicine Critical Care Medicine; Visit Provider Internal Medicine Critical Care Medicine
DX: J44.9 Chronic obstructive pulmonary disease, unspecified (principal)
CPT/HCPCS: 94060; 94726; 94729

== ENCOUNTER → 2021-08-19 21:35 | Outpatient (CLI) | payer MEDICARE, MEDICAID, SELFPAY | PROVIDERS: Referring Provider Nurse Practitioner Acute Care; Visit Provider Nurse Practitioner Acute Care | DX: G47.33 Obstructive sleep apnea (adult) (pediatric) (principal) | CPT/HCPCS: 95811 ==